=== PATIENT | male | born 1950 | race Caucasian/White ===

== ENCOUNTER 2016-09-02 10:06 | Inpatient (IN) | payer OTHER ==
[~2016-09-02] VITALS: Ht 170.2 cm; Wt 75.1 kg
[~2016-09-02 10:06] MED LIST: AMLO5TAB4 PO; ASP81 PO; ATOR20TA38 PO; CARV12.598 PO; CLOP75TA27 PO; GEMF600T PO; LANT3I SC; LISI-525 PO; LOV40I SC; NOVO3I SC; OXY5 PO; SENN-53 PO; UDMOM PO
--- NOTE | 2016-09-02 10:35 | RADRPT ---
PROCEDURE: XR Chest. CLINICAL INDICATION: Stroke TECHNIQUE: Chest AP portable COMPARISON: 08/24/2016 FINDINGS: The mediastinal structures are unremarkable. There is calcification of the thoracic aorta (consiste nt with atherosclerosis). The heart is normal in size and configuration. The pulmonary vascularity is normal. There are low lung volumes. No consolidation is identified. The pleural spaces are un remarkable. There are senescent changes of the axial skeleton. IMPRESSION: Calcification of the thoracic aorta (consistent with atherosclerosis). Low lung volumes No evidence for active cardiopulmonary disease. RPTAT: HGDB .Jorge Hernandez MD, Date Time Electronically viewed and signed by .Jorge Hernandez MD, on 09/02/2016 10:35 .B/
[2016-09-02 10:52] LABS: BASOPHILS % 0.3 % (0.0-2.0); EOSINOPHILS # 0.1 10^3/ul (0.0-0.5); EOSINOPHILS % 0.8 % (0.0-7.0); HEMATOCRIT 42.3 % (42.0-52.0); HEMOGLOBIN 14.3 g/dl (14.0-18.0); LYMPHOCYTES # 1.6 10^3/ul (0.8-2.9); LYMPHOCYTES % 16.5 % (15.0-51.0); MEAN CORPUSCULAR HEMOGLOBIN 27.9 pg (29.0-33.0); MEAN CORPUSCULAR HGB CONC 33.7 g/dl (32.0-37.0); MEAN CORPUSCULAR VOLUME 82.9 fl (82.0-101.0); MONOCYTE # 0.8 10^3/ul (0.3-0.9); MONOCYTES % 7.5 % (0.0-11.0); NEUTROPHIL # 7.5 10^3/ul (1.6-7.5); NEUTROPHILS % 74.9 % (39.0-77.0); PLATELET COUNT 247 10^3/UL (140-440)
[2016-09-02 10:54] LABS: CHLORIDE 97 mmol/L (97-110); INR 1.01; PROTIME 13.3 Sec (12.2-14.2); SODIUM 139 mmol/L (135-144)
[2016-09-02 10:55] LABS: PARTIAL THROMBOPLASTIN TIME 28.1 Sec (25.0-35.0); POTASSIUM 3.7 mmol/L (3.5-5.1)
[2016-09-02 10:56] LABS: CONDITION 1
[2016-09-02 10:57] LABS: ANION GAP 16 (8-16); CARBON DIOXIDE 30 mmol/L (21-31); CREATININE 0.75 mg/dl (0.61-1.24)
[2016-09-02 10:58] LABS: BLOOD UREA NITROGEN 15 mg/dl (7-20); CALCIUM 9.6 mg/dl (8.4-10.2); GLUCOSE 352 mg/dl (70-220)
[2016-09-02 11:45] LABS: TROPONIN-I < 0.012 ng/ml (0.00-0.12)
--- NOTE | 2016-09-02 12:11 | RADRPT ---
PROCEDURE: Noncontrast CT Head. CLINICAL INDICATION: Stroke. Left arm weakness. TECHNIQUE: Noncontrast CT of the head was obtained. The administered radiation dose was CTDI vol = 43.27, 43.27, 45.01 mGy, DLP = 180.06, 360.11, 90.03 mGy-cm. COMPARISON: Noncontrast CT of the head from August 24, 2016. FINDINGS: There is minimal generalized cerebral volume loss. There is new 1.5 cm focal area of hypoattenuatio n within the right prescott radiata suggestive of acute / recent infarction. There is also an interval age indeterminate left caudate head lacunar infarction. There is mild to moderate periventricular hypoattenuation suggesting chronic microvascular ischemic changes. There is a chronic left basal ganglia lacunar infarction as well small chronic right basal ganglia lacunar infarction. There is a chronic left inferior cerebellar infarction. There is also a small chronic right inferior cerebellar infarction. There are extensive vascular calcifications within the intracranial carotid arteries. There is no acute intracranial hemorrhage or extra-axial fluid collection. There is no mass effect. No midline shift is identified. The orbits are within normal limits. The paranasal sinuses are well aerated. No destructive osseous lesion is identified. IMPRESSION: 1. New focal area of hypoattenuation within the right prescott radiata suspicious for acute / recent i nfarction. Noncontrast MRI of the brain may be performed as clinically warranted. 2. Interval age indeterminate left caudate head lacunar infarction. 3. No acute intracranial hemorrhage or extra-axial fluid collection. 4. Chronic left greater than right inferior cerebellar infarction. 5. Chronic left greater than right basal ganglia lacunar infarctions. 6. Mild to moderate chronic microvascular ischemic changes. 7. Minimal generalized cerebral volume loss. Further findings as detailed above. These findings were discussed with Dr. Shar Koehler at 12:08 p.m. on September 02, 2016. RPTAT: PP .Wellington Bedoya MD, MD Date Time Electronically viewed and signed by .Wellington Bedoya MD, on 09/02/2016 12:11 .F/
[2016-09-02] MEDS ORDERED: ASPIRIN 325 MG TAB PO ONE (12:30)
[2016-09-02] MEDS ORDERED: ACETAMINOPHEN 325 MG TAB PO PRN ×2 (13:00→17:00)
[2016-09-02] MEDS ORDERED: ONDANSETRON 4 MG INJ IV PRN ×3 (13:00→17:00)
[2016-09-02] MEDS ORDERED: ASPIRIN 300 MG SUPP PR ONE (13:00)
[2016-09-02] MEDS ORDERED: LABETALOL HCL 20MG INJ IV ONE (14:00)
--- NOTE | 2016-09-02 14:06 | ERA ---
ER Documentation Chief Complaint Date/Time DATE: 09/02/16 TIME: 14:04 Chief Complaint left sided weakness, facial droop since last night HPI Patient is a 66-year-old male with hypertension and diabetes who presents with weakness. The patient was brought in by ambulance. His friends found him on the floor with a facial droop and left-sided weakness of the upper and lower extremity. It started last night. His sugar was over 200 per paramedics. He does not have an exact time when the symptoms started. ROS All systems reviewed and are negative except as per history of present illness. Medications Home Meds Active Scripts Sennosides* (Senna Lax*) 8.6 Mg Tablet, 1 TAB PO BID for CONSTIPATION, #30 TAB Prov:YOHANA CHINCHILLA 11/27/15 Oxycodone Hcl* (IR) (Roxicodone*) 5 Mg Tab, 5 MG PO Q4H Y for PAIN LEVEL 6-10, # 60 TAB Prov:YOHANA CHINCHILLA 11/27/15 Magnesium Hydroxide* (Duran' MOM*) 30 Ml Susp, 30 ML PO DAILY Y for CONSTIPATION, #30 Prov:YOHANA CHINCHILLA 11/27/15 Lisinopril* (Zestril*) 20 Mg Tab, 40 MG PO DAILY, #60 TAB Prov:YOHANA CHINCHILLA 11/27/15 Insulin Glargine* (Lantus*) 100 Unit/Ml Soln, 45 UNIT SC HS, #10 ML Prov:AMOR11/27/15 Insulin Aspart* (Novolog Insulin Pen*) 100 Unit/Ml Soln, 16 UNIT SC WITH MEALS, #10 ML Prov:YOHANA CHINCHILLA 11/27/15 Gemfibrozil* (Lopid*) 600 Mg Tab, 600 MG PO BID, #60 TAB Prov:YOHANA CHINCHILLA 11/27/15 Enoxaparin Sodium* (Enoxaparin Sodium*) 40 Mg/0.4 Ml Soln, 40 MG SC DAILY for 60 Days Prov:YOHANA CHINCHILLA 11/27/15 Clopidogrel Bisulfate (Clopidogrel) 75 Mg Tab, 75 MG PO DAILY, #60 TAB Prov:YOHANA CHINCHILLA 11/27/15 Carvedilol* (Coreg*) 12.5 Mg Tab, 12.5 MG PO BID for 60 Days, TAB Prov:YOHANA CHINCHILLA 11/27/15 Atorvastatin Calcium* (Atorvastatin Calcium*) 20 Mg Tab, 20 MG PO HS, #60 TAB Prov:YOHANA CHINCHILLA 11/27/15 Amlodipine Besylate* (Norvasc*) 5 Mg Tab, 5 MG PO BID, #60 TAB Prov:YOHANA CHINCHILLA 11/27/15 Aspirin (Aspirin) 81 Mg Chew, 81 MG PO DAILY, #60 TAB Prov:YOHANA CHINCHILLA 11/27/15 Allergies Allergies: Coded Allergies: No Known Allergy (Unverified , 09/02/16) PMhx/Soc Medical and Surgical Hx: pt denies Surgical Hx History of Surgery: No Anesthesia Reaction: No Hx Neurological Disorder: No Hx Respiratory Disorders: No Hx Cardiac Disorders: Yes (HTN) Hx Psychiatric Problems: No Hx Miscellaneous Medical Probl: Yes (dm) Hx Alcohol Use: No Hx Substance Use: Yes (marijuana in the past) Hx Tobacco Use: No Smoking Status: Never smoker FmHx Family History: diabetes Physical Exam Vitals Vital Signs Date Time Temp Pulse Resp B/P Pulse Ox O2 Delivery O2 Flow Rate FiO2 09/02/16 10:31 Nasal Cannula 2 09/02/16 10:18 97.8 90 18 172/90 99 Physical Exam Const: Mild distress Head: Atraumatic Eyes: Normal Conjunctiva ENT: Left-sided facial droop Neck: Full range of motion..~ No meningismus. Resp: Clear to auscultation bilaterally Cardio: Regular rate and rhythm, no murmurs Abd: Soft, non tender, non distended. Normal bowel sounds Skin: No petechiae or rashes Back: No midline or flank tenderness Ext: No cyanosis, or edema Neur: Awake and alert, left-sided facial droop which spares the eyebrows, profound weakness of the left upper extremity and left lower extremity as he is unable to move Psych: Normal Mood and Affect Result Diagram: 09/02/16 1015 09/02/16 1015 Results 24 hrs Laboratory Tests Test 09/02/16 10:15 09/02/16 12:14 Activated Partial Thromboplast Time 28.1Sec Anion Gap 16 Basophils # 0.010^3/ul Basophils % 0.3% Blood Morphology Comment Blood Urea Nitrogen 15mg/dl Calcium Level 9.6mg/dl Carbon Dioxide Level 30mmol/L Chloride Level 97mmol/L Creatinine 0.75mg/dl Eosinophils # 0.110^3/ul Eosinophils % 0.8% Glucose Level 352mg/dl Hematocrit 42.3% Hemoglobin 14.3g/dl INR International Normalized Ratio 1.01 Lymphocytes # 1.610^3/ul Lymphocytes % 16.5% Mean Corpuscular Hemoglobin 27.9pg Mean Corpuscular Hemoglobin Concent 33.7g/dl Mean Corpuscular Volume 82.9fl Mean Platelet Volume 11.0fl Monocytes # 0.810^3/ul Monocytes % 7.5% Neutrophils # 7.510^3/ul Neutrophils % 74.9% Nucleated Red Blood Cells # 0.010^3/ul Nucleated Red Blood Cells % 0.0/100WBC Platelet Count 93623^3/UL Potassium Level 3.7mmol/L Prothrombin Time 13.3Sec Prothrombin Time Ratio 1.0 Red Blood Count 5.1010^6/ul Red Cell Distribution Width 13.0% Sodium Level 139mmol/L Troponin I < 0.012ng/ml White Blood Count 10.010^3/ul Bedside Glucose 316mg/dL Current Medications Medications (Trade) Dose Ordered Sig/Milton Route PRN Reason Start Time Stop Time Status Last Admin Dose Admin Aspirin (Aspirin) 325 mg ONCE ONCE PO 09/02/16 12:30 09/02/16 12:34 DC Aspirin (Aspirin) 300 mg ONCE ONCE HI 09/02/16 13:00 09/02/16 13:01 DC 09/02/16 13:49 Ondansetron HCl (Zofran Inj) 4 mg ER BRIDGE PRN IV NAUSEA AND/OR VOMITING 09/02/16 13:00 09/03/16 12:59 Acetaminophen (Tylenol Tab) 650 mg ER BRIDGE PRN PO MILD PAIN/FEVER 09/02/16 13:00 09/03/16 12:59 Labetalol HCl (Labetalol) 20 mg ONCE ONCE IV 09/02/16 14:00 09/02/16 14:01 DC 09/02/16 14:00 Procedures/MDM EKG read by me: Rate/Rhythm: Regular rate and rhythm at a normal rate Intervals: Normal Impression: No evidence of ischemia or arrhythmia CT scan of the brain shows stroke per radiology. Patient is a 66-year-old male with hypertension and diabetes who presents with acute stroke. He is outside the window for TPA. However he has a dense stroke with left-sided facial droop, left upper extremity weakness, and left lower extremity weakness. He was given aspirin by rectum as he failed a swallow evaluation. The patient had an NIH stroke scale performed by nursing. The patient will be admitted to a telemetry bed. He will need further stroke care. He had a blood pressure of over 200 and was given labetalol 20 mg IV to bring the pressure under 200. Critical Care: Time: 35 minutes excluding all billable procedures. Treatments/Evaluations: Close monitoring and treatment of unstable vital signs, cardiorespiratory, and neurologic status, while maintaining tight balance of fluid, respiratory, and cardiac interventions. Departure Diagnosis: Primary Impression: Hypertension Qualified Code: I10 - Essential hypertension Additional Impression: Stroke Qualified Code: I63.9 - Cerebrovascular accident (CVA), unspecified mechanism Condition: Serious TAVO TUCKER MD Sep 02, 2016 14:06
[2016-09-02 15:12] LABS: ADD UMIC YES; URINE BILIRUBIN (Dip) NEGATIVE (NEGATIVE); URINE BLOOD (Dip) TRACE (NEGATIVE); URINE GLUCOSE (Dip) >=1000 % (NEGATIVE); URINE KETONES (Dip) 3+ (NEGATIVE); URINE LEUKOCYTE ESTERASE (Dip) NEGATIVE (NEGATIVE); URINE NITRITE (Dip) NEGATIVE (NEGATIVE); URINE TOTAL PROTEIN (Dip) 1+ (NEGATIVE); URINE UROBILINOGEN (Dip) 0.2 E.U./dL (0.1-1.0)
[2016-09-02 15:21] LABS: URINE COLOR YELLOW (YELLOW)
[2016-09-02 15:28] LABS: BACTERIA,URINE MODERATE
[2016-09-02 15:29] LABS: TRANSITIONAL EPI CELLS,URINE FEW; URINE RBCS 0-2 /HPF (0)
[2016-09-02 15:46] LABS: BARBITURATES NEGATIVE (NEGATIVE); BENZODIAZEPINES NEGATIVE (NEGATIVE); CANNABINOIDS NEGATIVE (NEGATIVE); COCAINE NEGATIVE (NEGATIVE); OPIATES NEGATIVE (NEGATIVE)
[2016-09-02] MEDS ORDERED: DOCUSATE SODIUM 100 MG CAP PO PRN (17:00)
[2016-09-02] MEDS ORDERED: NA PHOSPHATE/BIPHOS 133 ML ENEMA PR PRN (17:00)
[2016-09-02] MEDS ORDERED: INSULIN ASPART [NOVOLOG] 3 ML PEN SC SCH (17:00)
[2016-09-02] MEDS ORDERED: NACL 0.9% 3 ML SYG IV SCH (17:00)
[2016-09-02] MEDS ORDERED: ALBUTEROL/IPRATROPIUM (NEB) 3 ML AMP HHN PRN (17:00)
[2016-09-02] MEDS ORDERED: NITROGLYCERIN (SL) 0.4 MG TAB SL PRN (17:00)
[2016-09-02] MEDS ORDERED: HYDROCODONE/APAP (5/325) TAB PO PRN (17:00)
[2016-09-02] MEDS ORDERED: MAGNESIUM HYDROXIDE 30ML CUP PO PRN ×2 (17:00)
[2016-09-02] MEDS ORDERED: GLUCOSE GEL 15 GRAM TUBE BUCCAL PRN (18:00)
[2016-09-02] MEDS ORDERED: DEXTROSE 50% 50 ML SYRINGE IV PRN ×2 (18:00)
[2016-09-02] MEDS ORDERED: GLUCAGON 1 MG INJ IM PRN (18:00)
[2016-09-02] MEDS ORDERED: GLUCOSE GEL 15 GRAM TUBE PO PRN ×2 (18:00)
[2016-09-02] MEDS: SOD CHLORIDE 0.45% 1,000 ML IV SCH ×2 (19:38→19:47)
--- NOTE | 2016-09-02 19:54 | HP ---
DATE OF ADMISSION: 09/02/2016 CHIEF COMPLAINT: Left-sided weakness. HISTORY OF PRESENT ILLNESS: A 66-year-old male, past medical history of diabetes type 2, hypertensi on, high cholesterol, peripheral vascular disease, insomnia who was recently at our hospital here fr 08/24 to 08/25/2016. He presents with left-sided weakness symptoms today. However, symptoms beg an last night. He also had some facial droop, and family became concerned, and they brought him in by ambulance. Apparently his friends had found him on the floor with the facial droop and left-side d weakness symptoms of both of the upper and lower extremities. When the paramedics arrived, his cavanaugh gars were found to be elevated as well. The patient is a poor historian, so full review of systems could not be obtained, but when he came into the ER today, he had a head CT performed, and it showed new focal area of hypoattenuation in the right prescott radiata suspicious of acute or recent infarct . PAST MEDICAL HISTORY: As stated above. ALLERGIES: NO KNOWN DRUG ALLERGIES. HOME MEDICINES: 1. Plavix 75 mg daily. 2. Lovenox 40 mg subQ daily. 3. Norvasc 5 mg b.i.d. 4. Atorvastatin 20 mg at bedtime. 5. Coreg 12.5 mg b.i.d. 6. Lopid 600 mg b.i.d. 7. Zestril 40 mg daily. 8. Aspirin 81 mg daily. 9. Oxycodone IR 5 mg q.4 p.r.n. 10. Milk of magnesia 30 mL daily p.r.n. 11. Senna 1 tablet b.i.d. 12. Aspart insulin 16 units with meals. 13. Lantus 45 units at bedtime. PAST SURGICAL HISTORY: Left lower extremity angioplasty in the past. FAMILY HISTORY: Noncontributory. 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 Former alcohol abuser, does not drink now. Denies cigarette smoking today. PHYSICAL EXAMINATION: VITAL SIGNS: T-max 97.8, pulse of 78 to 90, respirations 18, blood pressure is 209 to 158 systolic over 128 to 82 diastolic, saturating at 99% on room air. GENERAL: The patient is lying in bed asking for water, family members at the bedside, in mild distr ess. HEENT: Pupils equal, round, react to light. Extraocular muscles intact but there is some left-side d facial droop noted. NECK: Supple. No thyromegaly. LUNGS: Clear to auscultation bilaterally. CARDIOVASCULAR: S1 and S2 heard. No rubs, gallops. ABDOMEN: Soft, nontender, nondistended. Normal bowel sounds. No rebound or guarding. MUSCULOSKELETAL: No lower extremity edema bilaterally. NEUROLOGIC: He has got decreased weakness in the left upper and left lower extremities. Normal str ength and sensation, right upper and right lower extremities. Gait was not assessed. PSYCHIATRIC: Normal mood and affect. LABORATORIES: CBC is completely normal. Basic metabolic panel is normal except his sugar was 352. A1c is 11.7. IMAGING: Again, the head CT results as mentioned above. The chest x-ray shows calcification of the thoracic aorta consistent with atherosclerosis, low lung volumes but no active cardiopulmonary dise ase. ASSESSMENT AND PLAN: A 66-year-old male coming in with left-sided weakness and facial droop with si gns of positive stroke on the head CT. 1. Left-sided weakness, looks like signs of positive stroke. Will admit him to telemetry floor, t an MRI of the brain, get a 2D echocardiogram, carotid Dopplers as well, put him on high-dose aspir in, do neuro checks every 4 hours as well. Put him on high cholesterol medicine, get a neurology co nsult as well. Get PT, OT and speech therapy consults as well. 2. Diabetes. Again, put him on sliding scale insulin and his home insulins. 3. Hypertension. Again, allow for permissive hypertension given the fact that he is having stroke, just hydralazine for systolic greater than 220 for now until Neurology sees him. 4. Gastrointestinal prophylaxis. H2 mariano. 5. Deep venous thrombosis prophylaxis. Lovenox. 6. History of peripheral vascular disease. Continue aspirin, Plavix for now. Dictated By: ALBINA IRVIN Conf#: [id number] DID#: [id number]
[2016-09-02] MEDS: ATORVASTATIN 80 MG TAB PO SCH (21:00)
[2016-09-02] MEDS: FAMOTIDINE 20 MG INJ IV SCH (21:00)
[2016-09-02] MEDS: GEMFIBROZIL 600 MG TAB PO SCH ×2 (21:00→23:58)
[2016-09-02] MEDS ORDERED: HEPARIN 5,000 UNIT/0.5 ML SYG SC SCH (21:00)
--- NOTE | 2016-09-02 22:08 | RADRPT ---
PROCEDURE: MRI Brain without contrast. CLINICAL INDICATION: Dizziness and prior stroke TECHNIQUE: An MRI of the brain was performed on a high resolution hi-definition 3.0 [employer] MRI scan ner utilizing the following sequences: Sagittal and axial T1 weighted, axial T2 weighted, axial T2 F LAIR, axial diffusion weighted with ADC mapping, and coronal GRE. COMPARISON: CT brain 09/02/2016 and 08/24/2016 FINDINGS: The scalp and calvarium are the orbits are normal bilaterally. The bilateral paranasal sinuses demo nstrate chronic mucosal thickening in the bilateral ethmoid and right greater than left maxillary si nuses. The bilateral mastoid air cells and middle ear cavities are clear. The ventricles and sulci are age appropriate. Moderate diffuse volume loss is present. On diffusi on weighted sequences, restricted diffusion is present in the right prescott radiography extending int o the right posterior limb of the internal capsule and the left head of the caudate extending superi paras into the left periventricular white matter. These are compatible with acute non hemorrhagic in farcts. FLAIR and T2 hyperintensity are again noted and a wedge-shaped configuration in the left po sterior inferior cerebellum compatible with a chronic infarct. In addition punctate foci of FLAIR a nd T2 hyperintensity are present in the right inferior cerebellum, the bilateral basal ganglia, the bilateral periventricular white matter, the left greater than right putamen, and the bilateral centr um semiovale. These are compatible with chronic ischemic disease and chronic lacunar infarcts. No ev idence of intracranial hemorrhage, mass effect or midline shift is present. No hypointense signal abnormalities are seen on the GRE images to suggest the presence of blood degradation products. Normal flow voids are visible in the proximal intracranial arteries and dural sinuses, indicating pa tency. IMPRESSION: 1. Acute non hemorrhagic left basal ganglia and right neural white matter infarcts as noted above. 2. Chronic left inferior cerebellar hemispheric infarct , small vessel right inferior cerebellar in farct, chronic left greater than right putaminal infarcts 3. Moderate chronic microvascular ischemic disease and moderate diffuse volume loss. 4. Chronic paranasal sinus disease as indicated above. A call report was made to Dr. Sandoval at 09/02/2016 10:00:20 PM following the completion of the examina tion by the undersigned. RPTAT: HDC .Xi Meyer MD, MD Date Time Electronically viewed and signed by .Xi Meyer MD, MD on 09/02/2016 22:08 .C/
[2016-09-02 22:30] VITALS: BP 138/76; PULSE 78; RESP 20
[2016-09-02 22:46] VITALS: Ht 170.2 cm; Wt 75.1 kg
[2016-09-02 23:09] VITALS: PULSE 84
[2016-09-03] VITALS (14 sets, daily range): BP systolic 142–189; BP diastolic 61–117; PULSE 72–122; RESP 18–21
[2016-09-03] MEDS: INSULIN ASPART [NOVOLOG] 3 ML PEN SC SCH ×11 (01:00→21:00)
[2016-09-03] MEDS: LORAZEPAM 2 MG INJ IV PRN ×4 (01:53→23:25)
[2016-09-03] MEDS: INSULIN GLARGINE [LANtus] 3 ML PEN SC SCH ×2 (01:59→22:14)
[2016-09-03] MEDS: morphine 2 MG INJ IV PRN (02:39)
[2016-09-03] MEDS ORDERED: HALOPERIDOL 5 MG INJ IM SCH (04:00)
[2016-09-03] MEDS ORDERED: HALOPERIDOL 5 MG INJ IM ONE (04:00)
[2016-09-03] MEDS ORDERED: LORAZEPAM 2 MG INJ IV ONE (05:00)
--- NOTE | 2016-09-03 06:02 | RADRPT ---
PROCEDURE: US Carotids. CLINICAL INDICATION: Dizziness TECHNIQUE: Multiple sonographic of the carotid arteries were obtained utilizing fritz scale imaging . Color and Doppler imaging was performed. The images were reviewed on a PACS workstation. COMPARISON: No prior studies are available for comparison. FINDINGS: RIGHT: CCA 101.6 cm/sec Prox ICA 62.3 cm/sec Mid ICA 51.2 cm/sec Dist ICA 49.5 cm/sec ECA 70.2 cm/sec ICA/CCA 0.5 LEFT: CCA 83.6 cm/sec Prox ICA 96.3 cm/sec Mid ICA 88.1 cm/sec Dist ICA 65.6 cm/sec ECA 70.7 cm/sec ICA/CCA 0 point a Antegrade flow is seen within the vertebral arteries bilaterally. Soft and calcific plaque is seen w ithin the carotid system bilaterally. However, no evidence for hemodynamically significant stenosis or occlusion is identified. IMPRESSION: 1. Soft and calcific plaque without evidence for hemodynamically significant stenosis or occlusion by NASCET criteria. There is plaque burden is at the left carotid bulb. 2. Antegrade flow seen within the vertebral arteries bilaterally. RPTAT: HH .Ruth Kaur MD, Date Time Electronically viewed and signed by .Ruth Kaur MD, on 09/03/2016 06:02 .G/
[2016-09-03 08:35] LABS: CHOL/HDL RATIO 6.8 RATIO
[2016-09-03] MEDS ORDERED: ENOXAPARIN 40 MG/0.4 ML SYG SC SCH (09:00)
[2016-09-03] MEDS: ASPIRIN (EC) 325 MG TAB PO SCH ×2 (09:00→15:16)
[2016-09-03 09:03] LABS: THYROID STIMULATING HORMONE 2.76 MIU/L (0.465-4.680)
[2016-09-03 09:25] LABS: BASOPHILS % 0.3 % (0.0-2.0); EOSINOPHILS % 0.3 % (0.0-7.0); HEMATOCRIT 40.8 % (42.0-52.0); HEMOGLOBIN 13.6 g/dl (14.0-18.0); LYMPHOCYTES # 1.3 10^3/ul (0.8-2.9); LYMPHOCYTES % 12.8 % (15.0-51.0); MEAN CORPUSCULAR HEMOGLOBIN 27.5 pg (29.0-33.0); MEAN CORPUSCULAR HGB CONC 33.4 g/dl (32.0-37.0); MEAN CORPUSCULAR VOLUME 82.3 fl (82.0-101.0); MONOCYTE # 0.5 10^3/ul (0.3-0.9); MONOCYTES % 5.4 % (0.0-11.0); NEUTROPHIL # 8.2 10^3/ul (1.6-7.5); NEUTROPHILS % 81.2 % (39.0-77.0); PLATELET COUNT 248 10^3/UL (140-440); POTASSIUM 3.9 mmol/L (3.5-5.1); RED BLOOD COUNT 4.96 10^6/ul (4.70-6.10); RED CELL DISTRIBUTION WIDTH 12.6 % (11.5-14.5); UNCORRECTED WBC 10.1 10^3/ul (4.8-10.8); WHITE BLOOD COUNT 10.1 10^3/ul (4.8-10.8)
[2016-09-03 09:28] LABS: CREATININE 0.71 mg/dl (0.61-1.24); PHOSPHORUS 4.2 mg/dl (2.5-4.9)
[2016-09-03 09:29] LABS: CALCIUM 9.1 mg/dl (8.4-10.2); CONDITION 1; MAGNESIUM 1.9 mg/dl (1.7-2.5)
--- NOTE | 2016-09-03 10:56 | PN ---
Date/Time of Note Date/Time of Note DATE: 09/03/16 TIME: 10:53 Assessment/Plan VTE Prophylaxis VTE Prophylaxis Intervention: LMWH Lines/Catheters IV Catheter Type (from [facility]): Peripheral IV Urinary Cath still in place: No Assessment/Plan Chief Complaint/Hosp Course ASSESSMENT AND PLAN: 66-year-old male coming in with left-sided weakness and facial droop with signs of positive stroke on the head CT. 1. CVA w/ left weakness - MRI of the brain shows: Acute non hemorrhagic left basal ganglia and right neural white matter infarcts - f/u 2D echocardiogram, continue high-dose aspirin - neuro checks every 4 hours as well, high cholesterol medicine - f/u neurology consult rec's as well (pending). - f/u PT, OT and speech therapy consults as well. 2. Diabetes. Again, put him on sliding scale insulin and his home insulins. 3. Hypertension. Again, allow for permissive hypertension given the fact that he is having stroke, just hydralazine for systolic greater than 220 for now until Neurology sees him. 4. Gastrointestinal prophylaxis. H2 mariano. 5. Deep venous thrombosis prophylaxis. Lovenox. 6. History of peripheral vascular disease. Continue aspirin, Plavix for now. Problems: Subjective 24 Hr Interval Summary Free Text/Dictation pt more agitated overnight, placed on restraints. Awaiting Neuro consult. Exam/Review of Systems Vital Signs Vitals Vital Signs Date Time Temp Pulse Resp B/P Pulse Ox O2 Delivery O2 Flow Rate FiO2 09/03/16 10:42 98.0 94 18 152/61 94 09/03/16 06:00 Nasal Cannula 09/03/16 02:41 2.0 Intake and Output 09/02/16 09/02/16 09/03/16 14:59 22:59 06:59 Intake Total 50 ml Balance 50 ml Exam GENERAL: The patient is lying in bed asking for water, family members at the bedside, in mild distress. HEENT: Pupils equal, round, react to light. Extraocular muscles intact but there is some left-sided facial droop noted. NECK: Supple. No thyromegaly. LUNGS: Clear to auscultation bilaterally. CARDIOVASCULAR: S1 and S2 heard. No rubs, gallops. ABDOMEN: Soft, nontender, nondistended. Normal bowel sounds. No rebound or guarding. MUSCULOSKELETAL: No lower extremity edema bilaterally. NEUROLOGIC: decreased strength in the left upper and left lower extremities. Normal strength and sensation, right upper and right lower extremities. Gait was not assessed. PSYCHIATRIC: Normal mood and affect. Results Result Diagram: 09/03/16 0727 09/03/16 0727 Results 24 hrs Laboratory Tests Test 09/02/16 12:14 09/02/16 14:20 09/02/16 18:55 09/02/16 23:10 Bedside Glucose 316 H 262 H Urine Amphetamines Screen NEGATIVE Urine Bacteria MODERATE Urine Barbiturates NEGATIVE Urine Benzodiazepines Screen NEGATIVE Urine Bilirubin NEGATIVE Urine Cannabinoids NEGATIVE Urine Clarity SLIGHTLY CLOUDY Urine Cocaine Screen NEGATIVE Urine Color YELLOW Urine Glucose >=1000 Urine Hemoglobin TRACE Urine Ketones 3+ H Urine Leukocyte Esterase NEGATIVE Urine Microscopic RBC 0-2 Urine Microscopic WBC 10-25 Urine Nitrite NEGATIVE Urine Opiates Screen NEGATIVE Urine Specific [place] >=1.030 H Urine Total Protein 1+ H Urine Transitional Epithelial Cells FEW Urine Urobilinogen 0.2 E.U./dL Urine Yeast MODERATE Urine pH 5.5 Free Thyroxine 1.32 Test 09/03/16 06:18 09/03/16 07:27 09/03/16 08:08 Bedside Glucose 320 H 218 Anion Gap 20 H Basophils # 0.0 Basophils % 0.3 Blood Morphology Comment Blood Urea Nitrogen 18 Calcium Level 9.1 Carbon Dioxide Level 21 Chloride Level 100 Cholesterol Level 232 H Cholesterol/HDL Ratio 6.8 Creatinine 0.71 Eosinophils # 0.0 Eosinophils % 0.3 Glucose Level 272 H HDL Cholesterol 34 Hematocrit 40.8 L Hemoglobin 13.6 L Hemoglobin A1c 11.9 H LDL Cholesterol, Calculated 156 Lymphocytes # 1.3 Lymphocytes % 12.8 L Magnesium Level 1.9 Mean Corpuscular Hemoglobin 27.5 L Mean Corpuscular Hemoglobin Concent 33.4 Mean Corpuscular Volume 82.3 Mean Platelet Volume 11.0 H Monocytes # 0.5 Monocytes % 5.4 Neutrophils # 8.2 H Neutrophils % 81.2 H Nucleated Red Blood Cells # 0.0 Nucleated Red Blood Cells % 0.0 Phosphorus Level 4.2 Platelet Count 248 Potassium Level 3.9 Red Blood Count 4.96 Red Cell Distribution Width 12.6 Sodium Level 137 Thyroid Stimulating Hormone (TSH) 2.760 Triglycerides Level 208 H White Blood Count 10.1 Medications Medications Current Medications Acetaminophen (Tylenol Tab) 650 mg Q6H PRN PO PAIN LEVEL 1-3 OR FEVER; Start 12/19/16 at 17:00 Acetaminophen/ Hydrocodone Bitart ([place] (5/325)) 1 tab Q6H PRN PO MODERATE PAIN LEVEL 4-6; Start 09/02/16 at 17:00 Morphine Sulfate (morphine) 2 mg Q4H PRN IV SEVERE PAIN LEVEL 7-10 Last administered on 09/03/16at 02:39; Admin Dose 2 MG; Start 09/02/16 at 17:00 Docusate Sodium (Colace) 100 mg Q12H PRN PO CONSTIPATION; Start 09/02/16 at 17 :00 Sodium Biphosphate/ Sodium Phosphate (Fleet Enema) 133 ml DAILY PRN [place] CONSTIPATION; Start 09/02/16 at 17:00 Famotidine (Pepcid Iv) 20 mg Q12 IV Last administered on 09/02/16at 21:00; Admin Dose 20 MG; Start 09/02/16 at 21:00 Heparin Sodium (Porcine) (Heparin (5000 Units/0.5 ml)) 5,000 unit Q12 SC Last administered on 09/02/16at 23:59; Admin Dose 5,000 UNIT; Start 09/02/16 at 21: 00 Ondansetron HCl 4 mg 4 mg Q6H PRN IV NAUSEA AND/OR VOMITING; Start 09/02/16 at 17:00 Sodium Chloride (1/2 NS) 1,000 ml @ 75 mls/hr [id number] IV Last administered on 09/02/16at 19:47; Admin Dose 75 MLS/HR; Start 09/02/16 at 16:57 Lorazepam (Ativan) 0.5 mg Q6H PRN IV ANXIETY Last administered on 09/03/16at 09 :37; Admin Dose 0.5 MG; Start 09/02/16 at 17:00 Hydralazine HCl (Apresoline) 10 mg Q6H PRN IV ELEVATED BLOOD PRESSURE; Start 09/02/16 at 17:00 Nitroglycerin (Nitroglycerin (Sl Tab) 0.4 Mg) 1 tab Q5M PRN SL ANGINA; Start 09/02/16 at 17:00 Aspirin (Ecotrin) 325 mg DAILY PO ; Start 09/03/16 at 09:00 Clopidogrel Bisulfate (plaVIX) 75 mg DAILY PO ; Start 09/03/16 at 09:00 Enoxaparin Sodium (Lovenox) 40 mg DAILY SC ; Start 09/03/16 at 09:00 Gemfibrozil (Lopid) 600 mg BID PO Last administered on 09/02/16at 23:58; Admin Dose 600 MG; Start 09/02/16 at 21:00 Insulin Glargine (Lantus) 45 unit HS SC Last administered on 09/03/16at 01:59; Admin Dose 45 UNIT; Start 09/02/16 at 21:00 Magnesium Hydroxide (Milk Of Mag) 30 ml DAILY PRN PO CONSTIPATION; Start 09/02 at 17:00 Atorvastatin Calcium (Lipitor) 80 mg HS PO ; Start 09/02/16 at 21:00 Miscellaneous Information 1 ea NOTE XX ; Start 09/02/16 at 18:00 Glucose (Glutose) 15 gm Q15M PRN PO DECREASED GLUCOSE; Start 09/02/16 at 18:00 Glucose (Glutose) 22.5 gm Q15M PRN PO DECREASED GLUCOSE; Start 09/02/16 at 18: 00 Dextrose (D50w Syringe) 25 ml Q15M PRN IV DECREASED GLUCOSE; Start 09/02/16 at 18:00 Dextrose (D50w Syringe) 50 ml Q15M PRN IV DECREASED GLUCOSE; Start 09/02/16 at 18:00 Glucagon (Glucagen) 1 mg Q15M PRN IM DECREASED GLUCOSE; Start 09/02/16 at 18: 00 Glucose (Glutose) 15 gm Q15M PRN BUCCAL DECREASED GLUCOSE; Start 09/02/16 at 18:00 Insulin Aspart (Novolog Insulin Pen) NOVOLOG *MODERATE* ALGORI... Q4 SC Last administered on 09/03/16at 06:26; Admin Dose 10 UNIT; Start 09/02/16 at 21:00 Haloperidol (Haldol) 1 mg ONCE IM Last administered on 09/03/16at 04:15; Admin Dose 1 MG; Start 09/03/16 at 04:00; Stop 09/03/16 at 12:00 ALBINA HUERTA Sep 03, 2016 10:56
[2016-09-03] MEDS: FAMOTIDINE 20 MG INJ IV SCH ×2 (11:14→20:58)
[2016-09-03] MEDS: SOD CHLORIDE 0.45% 1,000 ML IV SCH (13:02)
[2016-09-03] MEDS: CLOPIDOGREL 75 MG TAB PO SCH (15:16)
--- NOTE | 2016-09-03 19:01 | CONS ---
DATE OF ADMISSION: 09/02/2016 DATE OF CONSULTATION: 09/03/2016 TYPE OF CONSULTATION: Neurology. Thank you, Dr. Babcock, for your kind referral for evaluation of stroke. HISTORY OF PRESENT ILLNESS: The patient has a past medical history of diabetes, hypertension, dysli pidemia, peripheral vascular disease who presented with left-sided weakness outside of a TPA window. Patient is somewhat restless and he received Ativan so now he is sleepy. History obtained predomi nantly from the chart. HOME MEDICATIONS: 1. Plavix. 2. Norvasc. 3. Atorvastatin. 4. Coreg. 5. Zestril. 6. Aspirin. 7. Insulin. ALLERGIES: NONE. SOCIAL HISTORY: Reported in the chart history of prior cocaine and alcohol use as well as marijuana use but patient denied present use to the primary MD. FAMILY HISTORY: Noncontributory. He was admitted a few days prior on the , ten days prior to the hospitalization with shortness o f breath and headaches. There is a note in the chart that patient is not compliant with medications . Currently, he is on aspirin 325 and Plavix as well, Lipitor 80, insulin and opiates. LABORATORY DATA: Shows essentially normal CBC yesterday on admission. With hydration, hemoglobin 1 3.6 and hematocrit 40.8 today. Chemistry shows BUN 18, creatinine 0.71. Hemoglobin A1c 12. Choles terol 232, LDL 156. Normal TSH. Normal PT, PTT. Urinalysis 10 to 25 WBCs, 1+ protein and elevated glucose and 3+ ketones. Tox screen negative. The patient had MRI of the brain which shows 2 areas of acute stroke 1 in the left basal ganglia and 1 in the right internal capsule as well as areas of chronic infarcts. Carotid ultrasound does not show any hemodynamically significant lesions. Chest x-ray: Atherosclerosis and calcification of the thoracic aorta, otherwise no abnormality. EKG normal sinus rhythm. PHYSICAL EXAMINATION: VITAL SIGNS: On examination, vitals 98.2 temperature, heart rate 122 that was when the patient was agitated, 18 respirations, 181/117 blood pressure. HEENT: Normocephalic, atraumatic head. NECK: No carotid bruits. No thyromegaly. LUNGS: Clear to auscultation bilaterally. CARDIAC: Normal cardiac rhythm and sounds. ABDOMEN: Soft. EXTREMITIES: No cyanosis, clubbing or edema. The patient has his right arm in soft restraints. NEUROLOGIC: He is lethargic, arousable by voice, follows simple commands, follows simple commands, goes back to sleep. Able to state his name, but not oriented to place or time currently. Present response to visual threat bilaterally. Pupils reactive from 3 to 2 mm bilaterally. Extraocular mov ements intact without nystagmus. Asymmetrical face with left facial central type droop. Corneal re flexes present bilaterally as well as gag. Motor strength examination showed left-sided plegia and flaccid tone. He states that he does feel pain applied to the left side but seemed to be not as not iceable and produces milder response than pain applied to the right side. Deep tendon reflexes 2+ u pper extremities and knees, 3+ ankle jerks upgoing toes on the left and equivocal on the right. Co ordination was not checked. IMPRESSION AND PLAN: Acute ischemic stroke with left-sided plegia. MRI of the brain shows 2 areas of stroke, possibly patient had another stroke on the left side, maybe recently as well, but I do no t see any symptoms of the left sided stroke. PAST MEDICAL HISTORY: 1. Significant for noncompliance. 2. Speech evaluation and physical therapy were not done because of the patient's lethargy after he received Ativan. Should be retried tomorrow. 3. Continue aspirin, Plavix and high dose Lipitor. Keep patient euglycemic. It is okay to allow e levated blood pressure up to 220/120 in the first 1-2 days after acute stroke, but then gradually ob tain control. Thank you very much for this interesting consultation. I agree with antipsychotics plus/minus benzo diazepines on a p.r.n. basis. Dictated By: JOSÉ MIGUEL HOOKS/CORONA Conf#: [id number] DID#: [id number]
[2016-09-03] MEDS: ATORVASTATIN 80 MG TAB PO SCH (21:00)
[2016-09-03] MEDS: GEMFIBROZIL 600 MG TAB PO SCH (21:00)
[2016-09-03] MEDS: hydrALAzine 20 MG INJ IV PRN (23:01)
[2016-09-04] VITALS (17 sets, daily range): BP systolic 134–196; BP diastolic 69–102; PULSE 96–132; RESP 18–22
[2016-09-04] MEDS: INSULIN ASPART [NOVOLOG] 3 ML PEN SC SCH ×9 (01:00→21:17)
[2016-09-04] MEDS: SOD CHLORIDE 0.45% 1,000 ML IV SCH ×2 (01:31→15:47)
[2016-09-04] MEDS: LORAZEPAM 2 MG INJ IV PRN (05:10)
[2016-09-04] MEDS: CLOPIDOGREL 75 MG TAB PO SCH (09:00)
[2016-09-04] MEDS: GEMFIBROZIL 600 MG TAB PO SCH ×2 (09:00→21:00)
[2016-09-04] MEDS: ASPIRIN (EC) 325 MG TAB PO SCH (09:00)
[2016-09-04] MEDS: FAMOTIDINE 20 MG INJ IV SCH ×2 (09:06→21:19)
[2016-09-04 10:32] LABS: POTASSIUM 4.2 mmol/L (3.5-5.1)
[2016-09-04 10:35] LABS: CREATININE 0.64 mg/dl (0.61-1.24)
[2016-09-04 10:41] LABS: EOSINOPHILS % 0.2 % (0.0-7.0); HEMATOCRIT 41.3 % (42.0-52.0); LYMPHOCYTES # 1.3 10^3/ul (0.8-2.9); LYMPHOCYTES % 12.1 % (15.0-51.0); MEAN CORPUSCULAR HEMOGLOBIN 28.1 pg (29.0-33.0); MEAN CORPUSCULAR HGB CONC 33.9 g/dl (32.0-37.0); MEAN CORPUSCULAR VOLUME 82.9 fl (82.0-101.0); MEAN PLATELET VOLUME 10.5 fl (7.4-10.4); MONOCYTE # 0.9 10^3/ul (0.3-0.9); MONOCYTES % 8.5 % (0.0-11.0); NEUTROPHIL # 8.6 10^3/ul (1.6-7.5); NEUTROPHILS % 79.2 % (39.0-77.0); PLATELET COUNT 267 10^3/UL (140-440); RED BLOOD COUNT 4.98 10^6/ul (4.70-6.10); RED CELL DISTRIBUTION WIDTH 12.8 % (11.5-14.5); UNCORRECTED WBC 10.9 10^3/ul (4.8-10.8); WHITE BLOOD COUNT 10.9 10^3/ul (4.8-10.8)
[2016-09-04 11:00] LABS: CONDITION 1
--- NOTE | 2016-09-04 12:12 | PN ---
Date/Time of Note Date/Time of Note DATE: 09/04/16 TIME: 12:07 Assessment/Plan VTE Prophylaxis VTE Prophylaxis Intervention: SCD's Lines/Catheters IV [facility] Type (from [facility]): Peripheral IV Urinary Cath still in place: No Assessment/Plan Chief Complaint/Hosp Course ASSESSMENT AND PLAN: 66-year-old male coming in with left-sided weakness and facial droop with signs of positive stroke on the head CT. 1. CVA w/ left weakness - MRI of the brain shows: Acute non hemorrhagic left basal ganglia and right neural white matter infarcts. ECHO from 08/24 showed: Conclusions 1. Normal left ventricular cavity size. Normal left ventricular systolic function. Tissue Doppler/Mitral Doppler indices are consistent with impaired relaxation (Stage I diastolic dysfunction). Moderate concentric left ventricular hypertrophy. The left ventricular ejection fraction is visually estimated at 60 %. - continue high-dose aspirin - neuro checks every 4 hours as well, high cholesterol medicine - f/u neurology consult rec's, and will start controlling bp today - f/u PT, OT and speech therapy consults as well (NPO for now) 2. Diabetes -sliding scale insulin and his home insulins. 3. Hypertension - today will start controlling bp with meds today 4. Gastrointestinal prophylaxis. H2 mariano. 5. Deep venous thrombosis prophylaxis. SCD's 6. History of peripheral vascular disease. Continue aspirin, Plavix for now. Problems: Subjective 24 Hr Interval Summary Free Text/Dictation Pt still in restraints, no acute events overnight however, seen by Neuro team. Taras nursing, recommended to be NPO by ST team. Exam/Review of Systems Vital Signs Vitals Vital Signs Date Time Temp Pulse Resp B/P Pulse Ox O2 Delivery O2 Flow Rate FiO2 09/04/16 11:15 98.5 123 18 177/102 98 09/04/16 06:06 Nasal Cannula 09/03/16 20:50 2.0 Intake and Output 09/03/16 09/03/16 09/04/16 15:00 23:00 07:00 Intake Total 30 ml 100 ml Balance 30 ml 100 ml Exam GENERAL: The patient is lying in bed asking for water, family members at the bedside, in mild distress. HEENT: Pupils equal, round, react to light. Extraocular muscles intact but there is some left-sided facial droop noted. NECK: Supple. No thyromegaly. LUNGS: Clear to auscultation bilaterally. CARDIOVASCULAR: S1 and S2 heard. No rubs, gallops. ABDOMEN: Soft, nontender, nondistended. Normal bowel sounds. No rebound or guarding. MUSCULOSKELETAL: No lower extremity edema bilaterally. NEUROLOGIC: decreased strength in the left upper and left lower extremities. Normal strength and sensation, right upper and right lower extremities. Gait was not assessed. PSYCHIATRIC: Normal mood and affect. Results Result Diagram: 09/04/16 1000 09/04/16 1000 Results 24 hrs Laboratory Tests Test 09/03/16 12:56 09/03/16 16:51 09/03/16 20:13 09/04/16 04:54 Bedside Glucose 208 210 124 265 H Test 09/04/16 07:55 09/04/16 10:00 Bedside Glucose 225 H Anion Gap 20 H Basophils # 0.0 Basophils % 0.0 Blood Morphology Comment Blood Urea Nitrogen 12 Calcium Level 9.0 Carbon Dioxide Level 18 L Chloride Level 102 Creatinine 0.64 Eosinophils # 0.0 Eosinophils % 0.2 Glucose Level 233 H Hematocrit 41.3 L Hemoglobin 14.0 Lymphocytes # 1.3 Lymphocytes % 12.1 L Mean Corpuscular Hemoglobin 28.1 L Mean Corpuscular Hemoglobin Concent 33.9 Mean Corpuscular Volume 82.9 Mean Platelet Volume 10.5 H Monocytes # 0.9 Monocytes % 8.5 Neutrophils # 8.6 H Neutrophils % 79.2 H Nucleated Red Blood Cells # 0.0 Nucleated Red Blood Cells % 0.0 Platelet Count 267 Potassium Level 4.2 Red Blood Count 4.98 Red Cell Distribution Width 12.8 Sodium Level 136 White Blood Count 10.9 H Medications Medications Current Medications Acetaminophen (Tylenol Tab) 650 mg Q6H PRN PO PAIN LEVEL 1-3 OR FEVER; Start 09/02/16 at 17:00 Acetaminophen/ Hydrocodone Bitart ([place] (5/325)) 1 tab Q6H PRN PO MODERATE PAIN LEVEL 4-6; Start 09/02/16 at 17:00 Morphine Sulfate (morphine) 2 mg Q4H PRN IV SEVERE PAIN LEVEL 7-10 Last administered on 09/03/16at 02:39; Admin Dose 2 MG; Start 09/02/16 at 17:00 Docusate Sodium (Colace) 100 mg Q12H PRN PO CONSTIPATION; Start 09/02/16 at 17 :00 Sodium Biphosphate/ Sodium Phosphate (Fleet Enema) 133 ml DAILY PRN [place] CONSTIPATION; Start 09/02/16 at 17:00 Famotidine (Pepcid Iv) 20 mg Q12 IV Last administered on 09/04/16at 09:06; Admin Dose 20 MG; Start 09/02/16 at 21:00 Ondansetron HCl 4 mg 4 mg Q6H PRN IV NAUSEA AND/OR VOMITING; Start 09/02/16 at 17:00 Sodium Chloride (1/2 NS) 1,000 ml @ 75 mls/hr [id number] IV Last administered on 09/04/16at 01:31; Admin Dose 75 MLS/HR; Start 09/02/16 at 16:57 Lorazepam (Ativan) 0.5 mg Q6H PRN IV ANXIETY Last administered on 09/04/16at 05 :10; Admin Dose 0.5 MG; Start 09/02/16 at 17:00 Hydralazine HCl (Apresoline) 10 mg Q6H PRN IV ELEVATED BLOOD PRESSURE Last administered on 09/03/16at 23:01; Admin Dose 10 MG; Start 09/02/16 at 17:00 Nitroglycerin (Nitroglycerin (Sl Tab) 0.4 Mg) 1 tab Q5M PRN SL ANGINA; Start 09/02/16 at 17:00 Aspirin (Ecotrin) 325 mg DAILY PO ; Start 09/03/16 at 09:00 Clopidogrel Bisulfate (plaVIX) 75 mg DAILY PO Last administered on 09/03/16at 15:16; Admin Dose 75 MG; Start 09/03/16 at 09:00 Enoxaparin Sodium (Lovenox) 40 mg DAILY SC ; Start 09/03/16 at 09:00; Status Future Hold Gemfibrozil (Lopid) 600 mg BID PO Last administered on 09/02/16at 23:58; Admin Dose 600 MG; Start 09/02/16 at 21:00 Insulin Glargine (Lantus) 45 unit HS SC Last administered on 09/03/16at 22:14; Admin Dose 45 UNIT; Start 09/02/16 at 21:00 Magnesium Hydroxide (Milk Of Mag) 30 ml DAILY PRN PO CONSTIPATION; Start 09/02 at 17:00 Atorvastatin Calcium (Lipitor) 80 mg HS PO ; Start 09/02/16 at 21:00 Miscellaneous Information 1 ea NOTE XX ; Start 09/02/16 at 18:00 Glucose (Glutose) 15 gm Q15M PRN PO DECREASED GLUCOSE; Start 09/02/16 at 18:00 Glucose (Glutose) 22.5 gm Q15M PRN PO DECREASED GLUCOSE; Start 09/02/16 at 18: 00 Dextrose (D50w Syringe) 25 ml Q15M PRN IV DECREASED GLUCOSE; Start 09/02/16 at 18:00 Dextrose (D50w Syringe) 50 ml Q15M PRN IV DECREASED GLUCOSE; Start 09/02/16 at 18:00 Glucagon (Glucagen) 1 mg Q15M PRN IM DECREASED GLUCOSE; Start 09/02/16 at 18: 00 Glucose (Glutose) 15 gm Q15M PRN BUCCAL DECREASED GLUCOSE; Start 09/02/16 at 18:00 Insulin Aspart (Novolog Insulin Pen) NOVOLOG *MODERATE* ALGORI... Q4 SC Last administered on 09/04/16at 05:13; Admin Dose 8 UNIT; Start 09/02/16 at 21:00 ALBINA HUERTA Sep 04, 2016 12:12
[2016-09-04] MEDS: hydrALAzine 20 MG INJ IV PRN (14:01)
[2016-09-04] MEDS: morphine 2 MG INJ IV PRN (16:17)
[2016-09-04] MEDS: ATORVASTATIN 80 MG TAB PO SCH (21:00)
[2016-09-04] MEDS: INSULIN GLARGINE [LANtus] 3 ML PEN SC SCH (21:18)
[2016-09-05] VITALS (18 sets, daily range): BP systolic 117–189; BP diastolic 61–95; PULSE 73–121; RESP 18–20
[2016-09-05] MEDS: hydrALAzine 20 MG INJ IV PRN ×3 (00:06→21:54)
[2016-09-05] MEDS: INSULIN ASPART [NOVOLOG] 3 ML PEN SC SCH ×9 (01:50→20:51)
[2016-09-05] MEDS: LORAZEPAM 2 MG INJ IV PRN (02:37)
[2016-09-05] MEDS: GEMFIBROZIL 600 MG TAB PO SCH ×3 (09:00→20:52)
[2016-09-05] MEDS: ASPIRIN (EC) 325 MG TAB PO SCH ×2 (09:00→09:26)
[2016-09-05] MEDS: CLOPIDOGREL 75 MG TAB PO SCH ×2 (09:00→09:26)
[2016-09-05] MEDS: FAMOTIDINE 20 MG INJ IV SCH ×2 (09:26→20:52)
[2016-09-05] MEDS: SOD CHLORIDE 0.45% 1,000 ML IV SCH (10:52)
--- NOTE | 2016-09-05 11:30 | PN ---
Date/Time of Note Date/Time of Note DATE: 09/05/16 TIME: 11:28 Assessment/Plan VTE Prophylaxis VTE Prophylaxis Intervention: SCD's Lines/Catheters IV C[facility]ter Type (from [facility] Peripheral IV Urinary Cath still in place: No Assessment/Plan Chief Complaint/Hosp Course ASSESSMENT AND PLAN: 66-year-old male coming in with left-sided weakness and facial droop with signs of positive stroke on the head CT. 1. CVA w/ left weakness - MRI of the brain shows: Acute non hemorrhagic left basal ganglia and right neural white matter infarcts. ECHO from 08/24 showed: Conclusions 1. Normal left ventricular cavity size. Normal left ventricular systolic function. Tissue Doppler/Mitral Doppler indices are consistent with impaired relaxation (Stage I diastolic dysfunction). Moderate concentric left ventricular hypertrophy. The left ventricular ejection fraction is visually estimated at 60 %. - continue high-dose aspirin - neuro checks every 4 hours as well, high cholesterol medicine - f/u neurology consult rec's, tx bp - f/u PT, OT and speech therapy consults as well (NPO for now) - ST will reevaluate today 2. Diabetes -sliding scale insulin and his home insulins. 3. Hypertension - continue hydralazine IV prn > 160 4. Gastrointestinal prophylaxis. H2 mariano. 5. Deep venous thrombosis prophylaxis. SCD's 6. History of peripheral vascular disease. Continue aspirin, Plavix for now. Problems: Subjective 24 Hr Interval Summary Free Text/Dictation Pt a bit more alert today, but still lethargic. Exam/Review of Systems Vital Signs Vitals Vital Signs Date Time Temp Pulse Resp B/P Pulse Ox O2 Delivery O2 Flow Rate FiO2 09/05/16 09:03 119 09/05/16 09:00 97.9 20 142/75 2 09/05/16 05:45 2.0 09/04/16 20:30 Nasal Cannula 09/04/16 17:10 28 Exam GENERAL: The patient is lying, lethargic,in mild distress. HEENT: Pupils equal, round, react to light. Extraocular muscles intact but there is some left-sided facial droop noted. NECK: Supple. No thyromegaly. LUNGS: Clear to auscultation bilaterally. CARDIOVASCULAR: S1 and S2 heard. No rubs, gallops. ABDOMEN: Soft, nontender, nondistended. Normal bowel sounds. No rebound or guarding. MUSCULOSKELETAL: No lower extremity edema bilaterally. NEUROLOGIC: decreased strength in the left upper and left lower extremities. Normal strength and sensation, right upper and right lower extremities. Gait was not assessed. PSYCHIATRIC: Normal mood and affect. Results Result Diagram: 09/04/16 1000 09/04/16 1000 Results 24 hrs Laboratory Tests Test 09/04/16 12:09 09/04/16 17:45 09/04/16 20:32 09/05/16 01:30 Bedside Glucose 218 210 192 153 Test 09/05/16 05:24 09/05/16 08:12 Bedside Glucose 146 93 Medications Medications Current Medications Acetaminophen (Tylenol Tab) 650 mg Q6H PRN PO PAIN LEVEL 1-3 OR FEVER; Start 09/02/16 at 17:00 Acetaminophen/ Hydrocodone Bitart ([place] (5/325)) 1 tab Q6H PRN PO MODERATE PAIN LEVEL 4-6; Start 09/02/16 at 17:00 Morphine Sulfate (morphine) 2 mg Q4H PRN IV SEVERE PAIN LEVEL 7-10 Last administered on 09/04/16at 16:17; Admin Dose 2 MG; Start 09/02/16 at 17:00 Docusate Sodium (Colace) 100 mg Q12H PRN PO CONSTIPATION; Start 09/02/16 at 17 :00 Sodium Biphosphate/ Sodium Phosphate (Fleet Enema) 133 ml DAILY PRN [place] CONSTIPATION; Start 09/02/16 at 17:00 Famotidine (Pepcid Iv) 20 mg Q12 IV Last administered on 09/05/16at 09:26; Admin Dose 20 MG; Start 09/02/16 at 21:00 Ondansetron HCl 4 mg 4 mg Q6H PRN IV NAUSEA AND/OR VOMITING; Start 09/02/16 at 17:00 Sodium Chloride (1/2 NS) 1,000 ml @ 75 mls/hr [id number] IV Last administered on 09/05/16at 10:52; Admin Dose 75 MLS/HR; Start 09/02/16 at 16:57 Lorazepam (Ativan) 0.5 mg Q6H PRN IV ANXIETY Last administered on 09/05/16at 02 :37; Admin Dose 0.5 MG; Start 09/02/16 at 17:00 Nitroglycerin (Nitroglycerin (Sl Tab) 0.4 Mg) 1 tab Q5M PRN SL ANGINA; Start 09/02/16 at 17:00 Aspirin (Ecotrin) 325 mg DAILY PO ; Start 09/03/16 at 09:00 Clopidogrel Bisulfate (plaVIX) 75 mg DAILY PO Last administered on 09/03/16at 15:16; Admin Dose 75 MG; Start 09/03/16 at 09:00 Enoxaparin Sodium (Lovenox) 40 mg DAILY SC ; Start 09/03/16 at 09:00; Status Future Hold Gemfibrozil (Lopid) 600 mg BID PO Last administered on 09/02/16at 23:58; Admin Dose 600 MG; Start 09/02/16 at 21:00 Insulin Glargine (Lantus) 45 unit HS SC Last administered on 09/04/16at 21:18; Admin Dose 45 UNIT; Start 09/02/16 at 21:00 Magnesium Hydroxide (Milk Of Mag) 30 ml DAILY PRN PO CONSTIPATION; Start 09/02 at 17:00 Atorvastatin Calcium (Lipitor) 80 mg HS PO ; Start 09/02/16 at 21:00 Miscellaneous Information 1 ea NOTE XX ; Start 09/02/16 at 18:00 Glucose (Glutose) 15 gm Q15M PRN PO DECREASED GLUCOSE; Start 09/02/16 at 18:00 Glucose (Glutose) 22.5 gm Q15M PRN PO DECREASED GLUCOSE; Start 09/02/16 at 18: 00 Dextrose (D50w Syringe) 25 ml Q15M PRN IV DECREASED GLUCOSE; Start 09/02/16 at 18:00 Dextrose (D50w Syringe) 50 ml Q15M PRN IV DECREASED GLUCOSE; Start 09/02/16 at 18:00 Glucagon (Glucagen) 1 mg Q15M PRN IM DECREASED GLUCOSE; Start 09/02/16 at 18: 00 Glucose (Glutose) 15 gm Q15M PRN BUCCAL DECREASED GLUCOSE; Start 09/02/16 at 18:00 Insulin Aspart (Novolog Insulin Pen) NOVOLOG *MODERATE* ALGORI... Q4 SC Last administered on 09/05/16at 01:50; Admin Dose 2 UNIT; Start 09/02/16 at 21:00 Hydralazine HCl (Apresoline) 10 mg Q4H PRN IV ELEVATED BLOOD PRESSURE; Start 09/05/16 at 15:00 ALBINA HUERTA Sep 05, 2016 11:30
[2016-09-05] MEDS: morphine 2 MG INJ IV PRN (11:58)
[2016-09-05 12:26] LABS: BASOPHILS % 0.3 % (0.0-2.0); EOSINOPHILS # 0.2 10^3/ul (0.0-0.5); EOSINOPHILS % 1.5 % (0.0-7.0); HEMATOCRIT 43.2 % (42.0-52.0); HEMOGLOBIN 14.5 g/dl (14.0-18.0); LYMPHOCYTES # 1.6 10^3/ul (0.8-2.9); LYMPHOCYTES % 13.5 % (15.0-51.0); MEAN CORPUSCULAR HEMOGLOBIN 27.8 pg (29.0-33.0); MEAN CORPUSCULAR HGB CONC 33.6 g/dl (32.0-37.0); MEAN CORPUSCULAR VOLUME 82.6 fl (82.0-101.0); MEAN PLATELET VOLUME 10.4 fl (7.4-10.4); MONOCYTES % 8.3 % (0.0-11.0); NEUTROPHILS % 76.4 % (39.0-77.0); PLATELET COUNT 292 10^3/UL (140-440); RED BLOOD COUNT 5.23 10^6/ul (4.70-6.10); RED CELL DISTRIBUTION WIDTH 12.9 % (11.5-14.5); UNCORRECTED WBC 11.8 10^3/ul (4.8-10.8); WHITE BLOOD COUNT 11.8 10^3/ul (4.8-10.8)
[2016-09-05 12:32] LABS: CONDITION 1; POTASSIUM 3.3 mmol/L (3.5-5.1)
[2016-09-05 12:35] LABS: CREATININE 0.65 mg/dl (0.61-1.24)
[2016-09-05 12:36] LABS: CALCIUM 9.7 mg/dl (8.4-10.2)
[2016-09-05] MEDS: ATORVASTATIN 80 MG TAB PO SCH (20:52)
[2016-09-05] MEDS: INSULIN GLARGINE [LANtus] 3 ML PEN SC SCH (20:57)
[2016-09-06] VITALS (15 sets, daily range): BP systolic 95–183; BP diastolic 50–87; PULSE 64–113; RESP 18–20
[2016-09-06] MEDS: SOD CHLORIDE 0.45% 1,000 ML IV SCH ×2 (00:43→14:56)
[2016-09-06] MEDS: INSULIN ASPART [NOVOLOG] 3 ML PEN SC SCH ×9 (01:00→21:00)
[2016-09-06] MEDS: morphine 2 MG INJ IV PRN (02:48)
[2016-09-06] MEDS: FAMOTIDINE 20 MG INJ IV SCH ×2 (09:45→21:25)
[2016-09-06] MEDS: CLOPIDOGREL 75 MG TAB PO SCH (09:46)
[2016-09-06] MEDS: ASPIRIN (EC) 325 MG TAB PO SCH (09:46)
[2016-09-06] MEDS: GEMFIBROZIL 600 MG TAB PO SCH ×2 (09:46→21:26)
[2016-09-06 10:04] LABS: POTASSIUM 3.3 mmol/L (3.5-5.1)
[2016-09-06 10:07] LABS: CALCIUM 9.1 mg/dl (8.4-10.2); CREATININE 0.83 mg/dl (0.61-1.24)
[2016-09-06 10:23] LABS: BASOPHILS % 0.6 % (0.0-2.0); EOSINOPHILS # 0.2 10^3/ul (0.0-0.5); HEMATOCRIT 39.8 % (42.0-52.0); HEMOGLOBIN 13.4 g/dl (14.0-18.0); LYMPHOCYTES # 1.9 10^3/ul (0.8-2.9); LYMPHOCYTES % 22.4 % (15.0-51.0); MEAN CORPUSCULAR HEMOGLOBIN 27.8 pg (29.0-33.0); MEAN CORPUSCULAR HGB CONC 33.7 g/dl (32.0-37.0); MEAN CORPUSCULAR VOLUME 82.7 fl (82.0-101.0); MEAN PLATELET VOLUME 10.1 fl (7.4-10.4); MONOCYTE # 0.8 10^3/ul (0.3-0.9); MONOCYTES % 9.3 % (0.0-11.0); NEUTROPHIL # 5.7 10^3/ul (1.6-7.5); NEUTROPHILS % 65.7 % (39.0-77.0); PLATELET COUNT 260 10^3/UL (140-440); RED BLOOD COUNT 4.82 10^6/ul (4.70-6.10); UNCORRECTED WBC 8.7 10^3/ul (4.8-10.8); WHITE BLOOD COUNT 8.7 10^3/ul (4.8-10.8)
[2016-09-06 10:26] LABS: CONDITION 1
[2016-09-06] MEDS ORDERED: POTASSIUM CHLORIDE 250 ML IVPB ONE (11:00)
[2016-09-06] MEDS: hydrALAzine 20 MG INJ IV PRN (11:18)
--- NOTE | 2016-09-06 11:49 | PN ---
Date/Time of Note Date/Time of Note DATE: 09/06/16 TIME: 11:47 Assessment/Plan VTE Prophylaxis VTE Prophylaxis Intervention: SCD's Lines/Catheters [facility] (from [facility] Peripheral IV Urinary Cath still in place: No Assessment/Plan Chief Complaint/Hosp Course ASSESSMENT AND PLAN: 66-year-old male coming in with left-sided weakness and facial droop with signs of positive stroke on the head CT. 1. CVA w/ left weakness - MRI of the brain shows: Acute non hemorrhagic left basal ganglia and right neural white matter infarcts. ECHO from 08/24 showed: Conclusions 1. Normal left ventricular cavity size. Normal left ventricular systolic function. Tissue Doppler/Mitral Doppler indices are consistent with impaired relaxation (Stage I diastolic dysfunction). Moderate concentric left ventricular hypertrophy. The left ventricular ejection fraction is visually estimated at 60 %. - continue high-dose aspirin - neuro checks every 4 hours as well, high cholesterol medicine - f/u neurology consult rec's, tx bp - f/u PT, OT and speech therapy rec's 2. Diabetes -sliding scale insulin and his home insulins. 3. Hypertension - continue hydralazine IV prn > 160, restart home bp meds today since he can tolerate PO meds now 4. Gastrointestinal prophylaxis. H2 mariano. 5. Deep venous thrombosis prophylaxis. SCD's 6. History of peripheral vascular disease. Continue aspirin, Plavix for now. Problems: Subjective 24 Hr Interval Summary Free Text/Dictation Pt a bit more alert today, started on puree diet yesterday. Exam/Review of Systems Vital Signs Vitals Vital Signs Date Time Temp Pulse Resp B/P Pulse Ox O2 Delivery O2 Flow Rate FiO2 09/06/16 11:31 98.0 92 20 183/87 97 09/06/16 03:20 09/06/16 02:46 Nasal Cannula 09/06/16 01:19 2.0 Intake and Output 09/05/16 09/05/16 09/06/16 15:00 23:00 07:00 Intake Total 925 ml Balance 925 ml Exam GENERAL: The patient is lying, lethargic, but arousable HEENT: Pupils equal, round, react to light. Extraocular muscles intact but there is some left-sided facial droop noted. NECK: Supple. No thyromegaly. LUNGS: Clear to auscultation bilaterally. CARDIOVASCULAR: S1 and S2 heard. No rubs, gallops. ABDOMEN: Soft, nontender, nondistended. Normal bowel sounds. No rebound or guarding. MUSCULOSKELETAL: No lower extremity edema bilaterally. NEUROLOGIC: decreased strength in the left upper and left lower extremities. Normal strength and sensation, right upper and right lower extremities. Gait was not assessed. PSYCHIATRIC: Normal mood and affect. Results Result Diagram: 09/06/16 0948 09/06/16 0946 Results 24 hrs Laboratory Tests Test 09/05/16 11:54 09/05/16 17:52 09/05/16 19:59 09/06/16 01:34 Bedside Glucose 98 108 122 106 Test 09/06/16 05:48 09/06/16 07:56 09/06/16 09:46 09/06/16 09:48 Bedside Glucose 79 73 Anion Gap 17 H Blood Urea Nitrogen 19 Calcium Level 9.1 Carbon Dioxide Level 21 Chloride Level 105 Creatinine 0.83 Glucose Level 118 Potassium Level 3.3 L Sodium Level 140 Basophils # 0.0 Basophils % 0.6 Blood Morphology Comment Eosinophils # 0.2 Eosinophils % 2.0 Hematocrit 39.8 L Hemoglobin 13.4 L Lymphocytes # 1.9 Lymphocytes % 22.4 Mean Corpuscular Hemoglobin 27.8 L Mean Corpuscular Hemoglobin Concent 33.7 Mean Corpuscular Volume 82.7 Mean Platelet Volume 10.1 Monocytes # 0.8 Monocytes % 9.3 Neutrophils # 5.7 Neutrophils % 65.7 Nucleated Red Blood Cells # 0.0 Nucleated Red Blood Cells % 0.0 Platelet Count 260 Red Blood Count 4.82 Red Cell Distribution Width 13.0 White Blood Count 8.7 # Test 09/06/16 11:32 Bedside Glucose 162 Medications Medications Current Medications Acetaminophen (Tylenol Tab) 650 mg Q6H PRN PO PAIN LEVEL 1-3 OR FEVER; Start 09/02/16 at 17:00 Acetaminophen/ Hydrocodone Bitart ([place] (5/325)) 1 tab Q6H PRN PO MODERATE PAIN LEVEL 4-6; Start 09/02/16 at 17:00 Morphine Sulfate (morphine) 2 mg Q4H PRN IV SEVERE PAIN LEVEL 7-10 Last administered on 09/06/16at 02:48; Admin Dose 2 MG; Start 09/02/16 at 17:00 Docusate Sodium (Colace) 100 mg Q12H PRN PO CONSTIPATION; Start 09/02/16 at 17 :00 Sodium Biphosphate/ Sodium Phosphate (Fleet Enema) 133 ml DAILY PRN [place] CONSTIPATION; Start 09/02/16 at 17:00 Famotidine (Pepcid Iv) 20 mg Q12 IV Last administered on 09/06/16at 09:45; Admin Dose 20 MG; Start 09/02/16 at 21:00 Ondansetron HCl 4 mg 4 mg Q6H PRN IV NAUSEA AND/OR VOMITING; Start 09/02/16 at 17:00 Sodium Chloride (1/2 NS) 1,000 ml @ 75 mls/hr [id number] IV Last administered on 09/06/16at 00:43; Admin Dose 75 MLS/HR; Start 09/02/16 at 16:57 Lorazepam (Ativan) 0.5 mg Q6H PRN IV ANXIETY Last administered on 09/05/16at 02 :37; Admin Dose 0.5 MG; Start 09/02/16 at 17:00 Nitroglycerin (Nitroglycerin (Sl Tab) 0.4 Mg) 1 tab Q5M PRN SL ANGINA; Start 09/02/16 at 17:00 Aspirin (Ecotrin) 325 mg DAILY PO Last administered on 09/06/16at 09:46; Admin Dose 325 MG; Start 09/03/16 at 09:00 Clopidogrel Bisulfate (plaVIX) 75 mg DAILY PO Last administered on 09/06/16at 09:46; Admin Dose 75 MG; Start 09/03/16 at 09:00 Enoxaparin Sodium (Lovenox) 40 mg DAILY SC ; Start 09/03/16 at 09:00; Status Future Hold Gemfibrozil (Lopid) 600 mg BID PO Last administered on 09/06/16at 09:46; Admin Dose 600 MG; Start 09/02/16 at 21:00 Insulin Glargine (Lantus) 45 unit HS SC Last administered on 09/05/16at 20:57; Admin Dose 45 UNIT; Start 09/02/16 at 21:00 Magnesium Hydroxide (Milk Of Mag) 30 ml DAILY PRN PO CONSTIPATION; Start 09/02 at 17:00 Atorvastatin Calcium (Lipitor) 80 mg HS PO Last administered on 09/05/16at 20: 52; Admin Dose 80 MG; Start 09/02/16 at 21:00 Miscellaneous Information 1 ea NOTE XX ; Start 09/02/16 at 18:00 Glucose (Glutose) 15 gm Q15M PRN PO DECREASED GLUCOSE; Start 09/02/16 at 18:00 Glucose (Glutose) 22.5 gm Q15M PRN PO DECREASED GLUCOSE; Start 09/02/16 at 18: 00 Dextrose (D50w Syringe) 25 ml Q15M PRN IV DECREASED GLUCOSE; Start 09/02/16 at 18:00 Dextrose (D50w Syringe) 50 ml Q15M PRN IV DECREASED GLUCOSE; Start 09/02/16 at 18:00 Glucagon (Glucagen) 1 mg Q15M PRN IM DECREASED GLUCOSE; Start 09/02/16 at 18: 00 Glucose (Glutose) 15 gm Q15M PRN BUCCAL DECREASED GLUCOSE; Start 09/02/16 at 18:00 Insulin Aspart (Novolog Insulin Pen) NOVOLOG *MODERATE* ALGORI... Q4 SC Last administered on 09/05/16at 01:50; Admin Dose 2 UNIT; Start 09/02/16 at 21:00 Hydralazine HCl 10 mg 10 mg Q4H PRN IV ELEVATED BLOOD PRESSURE Last administered on 09/06/16at 11:18; Admin Dose 10 MG; Start 09/05/16 at 15:00 Potassium Chloride (KCl 40 MEQ/250 ML NS) 250 ml @ 62.5 mls/hr ONCE ONCE IVPB Last administered on 09/06/16at 11:18; Admin Dose 62.5 MLS/HR; Start at 11:00; Stop 09/06/16 at 14:59 Amlodipine Besylate (Norvasc) 5 mg BID PO ; Start 09/06/16 at 11:30 Carvedilol (Coreg) 12.5 mg BID PO ; Start 09/06/16 at 11:30 Lisinopril (Zestril) 40 mg DAILY PO ; Start 09/06/16 at 11:30 ALBINA HUERTA Sep 06, 2016 11:49
[2016-09-06] MEDS: LISINOPRIL 20 MG TAB PO SCH (12:45)
[2016-09-06] MEDS: AMLODIPINE 5 MG TAB PO SCH ×2 (12:45→21:27)
[2016-09-06] MEDS: INSULIN GLARGINE [LANtus] 3 ML PEN SC SCH ×2 (21:00→21:37)
[2016-09-06] MEDS: ATORVASTATIN 80 MG TAB PO SCH (21:26)
[2016-09-06] MEDS ORDERED: INSULIN GLARGINE [LANtus] 3 ML PEN SC ONE (22:00)
[2016-09-07] VITALS (15 sets, daily range): BP systolic 102–178; BP diastolic 51–89; PULSE 59–89; RESP 17–21
[2016-09-07] MEDS: INSULIN ASPART [NOVOLOG] 3 ML PEN SC SCH ×7 (01:00→21:00)
[2016-09-07] MEDS: DEXTROSE 5%-0.9% NACL 1,000 ML IV SCH ×2 (01:50→15:41)
[2016-09-07 08:08] LABS: POTASSIUM 4.1 mmol/L (3.5-5.1)
[2016-09-07 08:10] LABS: CREATININE 0.71 mg/dl (0.61-1.24)
[2016-09-07 08:11] LABS: CALCIUM 8.9 mg/dl (8.4-10.2)
[2016-09-07 08:15] LABS: BASOPHILS % 0.4 % (0.0-2.0); EOSINOPHILS # 0.1 10^3/ul (0.0-0.5); EOSINOPHILS % 2.4 % (0.0-7.0); HEMATOCRIT 38.8 % (42.0-52.0); LYMPHOCYTES # 1.5 10^3/ul (0.8-2.9); LYMPHOCYTES % 24.7 % (15.0-51.0); MEAN CORPUSCULAR HGB CONC 33.5 g/dl (32.0-37.0); MEAN CORPUSCULAR VOLUME 83.7 fl (82.0-101.0); MEAN PLATELET VOLUME 10.2 fl (7.4-10.4); MONOCYTE # 0.6 10^3/ul (0.3-0.9); MONOCYTES % 10.5 % (0.0-11.0); NEUTROPHIL # 3.7 10^3/ul (1.6-7.5); PLATELET COUNT 232 10^3/UL (140-440); RED BLOOD COUNT 4.64 10^6/ul (4.70-6.10); RED CELL DISTRIBUTION WIDTH 13.4 % (11.5-14.5); UNCORRECTED WBC 5.9 10^3/ul (4.8-10.8); WHITE BLOOD COUNT 5.9 10^3/ul (4.8-10.8)
[2016-09-07 08:35] LABS: CONDITION 1
[2016-09-07] MEDS: LISINOPRIL 20 MG TAB PO SCH (08:53)
[2016-09-07] MEDS: GEMFIBROZIL 600 MG TAB PO SCH ×2 (08:53→21:11)
[2016-09-07] MEDS: ASPIRIN (EC) 325 MG TAB PO SCH (08:53)
[2016-09-07] MEDS: CLOPIDOGREL 75 MG TAB PO SCH (08:53)
[2016-09-07] MEDS: FAMOTIDINE 20 MG INJ IV SCH ×2 (08:53→21:10)
[2016-09-07] MEDS: AMLODIPINE 5 MG TAB PO SCH ×2 (08:54→21:11)
--- NOTE | 2016-09-07 10:08 | PN ---
Date/Time of Note Date/Time of Note DATE: 09/07/16 TIME: 10:05 Assessment/Plan VTE Prophylaxis VTE Prophylaxis Intervention: SCD's Lines/Catheters IV [facility] Type (from [facility]): Peripheral IV Urinary Cath still in place: No Assessment/Plan Chief Complaint/Hosp Course ASSESSMENT AND PLAN: 66-year-old male coming in with left-sided weakness and facial droop with signs of positive stroke on the head CT. 1. CVA w/ left weakness - MRI of the brain shows: Acute non hemorrhagic left basal ganglia and right neural white matter infarcts. ECHO from 08/24 showed: Conclusions 1. Normal left ventricular cavity size. Normal left ventricular systolic function. Tissue Doppler/Mitral Doppler indices are consistent with impaired relaxation (Stage I diastolic dysfunction). Moderate concentric left ventricular hypertrophy. The left ventricular ejection fraction is visually estimated at 60 %. - continue high-dose aspirin - neuro checks every 4 hours as well, statin - f/u neurology consult rec's, tx bp - f/u PT, OT and speech therapy rec's - St reeval today given throat pain and difficulty swallowing pills 2. Diabetes -sliding scale insulin and his home insulins - given lower sugars today will lower dose a bit on these meds. 3. Hypertension - continue hydralazine IV prn > 160, continue home bp meds today since he can tolerate PO meds now 4. Gastrointestinal prophylaxis. H2 mariano. 5. Deep venous thrombosis prophylaxis. SCD's 6. History of peripheral vascular disease. Continue aspirin, Plavix for now. Problems: Subjective 24 Hr Interval Summary Free Text/Dictation Pt a bit more alert today, but report difficulty swallowing pills. Exam/Review of Systems Vital Signs Vitals Vital Signs Date Time Temp Pulse Resp B/P Pulse Ox O2 Delivery O2 Flow Rate FiO2 09/07/16 08:16 61 09/07/16 07:48 Nasal Cannula 2.0 09/07/16 07:10 98.3 18 153/71 98 09/06/16 03:20 Intake and Output 09/06/16 09/06/16 09/07/16 14:59 22:59 06:59 Intake Total 480 ml 100 ml Balance 480 ml 100 ml Exam GENERAL: The patient is lying, a bit more alert today HEENT: Pupils equal, round, react to light. Extraocular muscles intact but there is some left-sided facial droop noted. NECK: Supple. No thyromegaly. LUNGS: Clear to auscultation bilaterally. CARDIOVASCULAR: S1 and S2 heard. No rubs, gallops. ABDOMEN: Soft, nontender, nondistended. Normal bowel sounds. No rebound or guarding. MUSCULOSKELETAL: No lower extremity edema bilaterally. NEUROLOGIC: decreased strength in the left upper and left lower extremities. Normal strength and sensation, right upper and right lower extremities. Gait was not assessed. PSYCHIATRIC: Normal mood and affect. Results Result Diagram: 09/07/16 0722 09/07/16 0722 Results 24 hrs Laboratory Tests Test 09/06/16 11:32 09/06/16 16:52 09/06/16 17:56 09/06/16 21:29 Bedside Glucose 162 174 157 72 Test 09/07/16 01:14 09/07/16 05:57 09/07/16 07:22 09/07/16 08:36 Bedside Glucose 71 107 141 Anion Gap 17 H Basophils # 0.0 Basophils % 0.4 Blood Morphology Comment Blood Urea Nitrogen 18 Calcium Level 8.9 Carbon Dioxide Level 22 Chloride Level 107 Creatinine 0.71 Eosinophils # 0.1 Eosinophils % 2.4 Glucose Level 127 Hematocrit 38.8 L Hemoglobin 13.0 L Lymphocytes # 1.5 Lymphocytes % 24.7 Mean Corpuscular Hemoglobin 28.0 L Mean Corpuscular Hemoglobin Concent 33.5 Mean Corpuscular Volume 83.7 Mean Platelet Volume 10.2 Monocytes # 0.6 Monocytes % 10.5 Neutrophils # 3.7 Neutrophils % 62.0 Nucleated Red Blood Cells # 0.0 Nucleated Red Blood Cells % 0.0 Platelet Count 232 Potassium Level 4.1 Red Blood Count 4.64 L Red Cell Distribution Width 13.4 Sodium Level 142 White Blood Count 5.9 # Medications Medications Current Medications Acetaminophen (Tylenol Tab) 650 mg Q6H PRN PO PAIN LEVEL 1-3 OR FEVER; Start 09/02/16 at 17:00 Acetaminophen/ Hydrocodone Bitart ([place] (5/325)) 1 tab Q6H PRN PO MODERATE PAIN LEVEL 4-6; Start 09/02/16 at 17:00 Morphine Sulfate (morphine) 2 mg Q4H PRN IV SEVERE PAIN LEVEL 7-10 Last administered on 09/06/16at 02:48; Admin Dose 2 MG; Start 09/02/16 at 17:00 Docusate Sodium (Colace) 100 mg Q12H PRN PO CONSTIPATION; Start 09/02/16 at 17 :00 Sodium Biphosphate/ Sodium Phosphate (Fleet Enema) 133 ml DAILY PRN [place] CONSTIPATION; Start 09/02/16 at 17:00 Famotidine (Pepcid Iv) 20 mg Q12 IV Last administered on 09/07/16 08:53; Admin Dose 20 MG; Start 09/02/16 at 21:00 Ondansetron HCl (Zofran Inj) 4 mg Q6H PRN IV NAUSEA AND/OR VOMITING; Start at 17:00 Lorazepam (Ativan) 0.5 mg Q6H PRN IV ANXIETY Last administered on 09/05/16at 02 :37; Admin Dose 0.5 MG; Start 09/02/16 at 17:00 Nitroglycerin (Nitroglycerin (Sl Tab) 0.4 Mg) 1 tab Q5M PRN SL ANGINA; Start 09/02/16 at 17:00 Aspirin (Ecotrin) 325 mg DAILY PO Last administered on 09/07/16at 08:53; Admin Dose 325 MG; Start 09/03/16 at 09:00 Clopidogrel Bisulfate (plaVIX) 75 mg DAILY PO Last administered on 09/07/16at 08:53; Admin Dose 75 MG; Start 09/03/16 at 09:00 Enoxaparin Sodium (Lovenox) 40 mg DAILY SC ; Start 09/03/16 at 09:00; Status Future Hold Gemfibrozil (Lopid) 600 mg BID PO Last administered on 09/07/16at 08:53; Admin Dose 600 MG; Start 09/02/16 at 21:00 Magnesium Hydroxide (Milk Of Mag) 30 ml DAILY PRN PO CONSTIPATION; Start 09/02 at 17:00 Atorvastatin Calcium (Lipitor) 80 mg HS PO Last administered on 09/06/16at 21: 26; Admin Dose 80 MG; Start 09/02/16 at 21:00 Miscellaneous Information 1 ea NOTE XX ; Start 09/02/16 at 18:00 Glucose (Glutose) 15 gm Q15M PRN PO DECREASED GLUCOSE; Start 09/02/16 at 18:00 Glucose (Glutose) 22.5 gm Q15M PRN PO DECREASED GLUCOSE; Start 09/02/16 at 18: 00 Dextrose (D50w Syringe) 25 ml Q15M PRN IV DECREASED GLUCOSE; Start 09/02/16 at 18:00 Dextrose (D50w Syringe) 50 ml Q15M PRN IV DECREASED GLUCOSE; Start 09/02/16 at 18:00 Glucagon (Glucagen) 1 mg Q15M PRN IM DECREASED GLUCOSE; Start 09/02/16 at 18: 00 Glucose (Glutose) 15 gm Q15M PRN BUCCAL DECREASED GLUCOSE; Start 09/02/16 at 18:00 Hydralazine HCl (Apresoline) 10 mg Q4H PRN IV ELEVATED BLOOD PRESSURE Last administered on 09/06/16at 11:18; Admin Dose 10 MG; Start 09/05/16 at 15:00 Amlodipine Besylate (Norvasc) 5 mg BID PO Last administered on 09/07/16at 08:54 ; Admin Dose 5 MG; Start 09/06/16 at 11:30 Carvedilol (Coreg) 12.5 mg BID PO Last administered on 09/07/16at 08:54; Admin Dose 12.5 MG; Start 09/06/16 at 11:30 Lisinopril 40 mg 40 mg DAILY PO Last administered on 09/07/16at 08:53; Admin Dose 40 MG; Start 09/06/16 at 11:30 Dextrose/Sodium Chloride (D5-NS) 1,000 ml @ 75 mls/hr [id number] IV Last administered on 09/07/16at 01:50; Admin Dose 75 MLS/HR; Start 09/07/16 at 02:00 Insulin Glargine (Lantus) 40 unit HS SC ; Start 09/07/16 at 21:00 ALBINA HUERTA Sep 07, 2016 10:08
[2016-09-07] MEDS: morphine 2 MG INJ IV PRN (16:32)
[2016-09-07] MEDS: hydrALAzine 20 MG INJ IV PRN (17:14)
[2016-09-07] MEDS: ATORVASTATIN 80 MG TAB PO SCH (21:11)
[2016-09-07] MEDS: INSULIN GLARGINE [LANtus] 3 ML PEN SC SCH (21:33)
[2016-09-08] VITALS (13 sets, daily range): BP systolic 143–200; BP diastolic 63–99; PULSE 68–85; RESP 18–20
[2016-09-08] MEDS: morphine 2 MG INJ IV PRN ×4 (01:46→19:16)
[2016-09-08] MEDS: DEXTROSE 5%-0.9% NACL 1,000 ML IV SCH ×2 (04:55→19:10)
[2016-09-08] MEDS: INSULIN ASPART [NOVOLOG] 3 ML PEN SC SCH ×7 (07:25→20:11)
[2016-09-08 07:55] LABS: BASOPHILS % 0.6 % (0.0-2.0); EOSINOPHILS # 0.2 10^3/ul (0.0-0.5); HEMATOCRIT 36.2 % (42.0-52.0); HEMOGLOBIN 12.2 g/dl (14.0-18.0); LYMPHOCYTES % 32.6 % (15.0-51.0); MEAN CORPUSCULAR HGB CONC 33.6 g/dl (32.0-37.0); MEAN CORPUSCULAR VOLUME 83.3 fl (82.0-101.0); MONOCYTE # 0.6 10^3/ul (0.3-0.9); MONOCYTES % 10.5 % (0.0-11.0); NEUTROPHIL # 3.3 10^3/ul (1.6-7.5); NEUTROPHILS % 53.3 % (39.0-77.0); PLATELET COUNT 238 10^3/UL (140-440); RED BLOOD COUNT 4.34 10^6/ul (4.70-6.10); RED CELL DISTRIBUTION WIDTH 13.3 % (11.5-14.5); UNCORRECTED WBC 6.1 10^3/ul (4.8-10.8); WHITE BLOOD COUNT 6.1 10^3/ul (4.8-10.8)
[2016-09-08 08:02] LABS: CONDITION 1
[2016-09-08 08:06] LABS: POTASSIUM 3.7 mmol/L (3.5-5.1)
[2016-09-08] MEDS: hydrALAzine 20 MG INJ IV PRN ×2 (08:08→20:13)
[2016-09-08 08:09] LABS: CREATININE 0.65 mg/dl (0.61-1.24)
[2016-09-08 08:10] LABS: CALCIUM 8.7 mg/dl (8.4-10.2)
[2016-09-08] MEDS: FAMOTIDINE 20 MG INJ IV SCH ×2 (08:11→20:15)
[2016-09-08] MEDS: GEMFIBROZIL 600 MG TAB PO SCH ×3 (09:30→20:23)
[2016-09-08] MEDS: AMLODIPINE 5 MG TAB PO SCH ×3 (09:30→20:23)
[2016-09-08] MEDS: CLOPIDOGREL 75 MG TAB PO SCH ×2 (09:30→09:37)
[2016-09-08] MEDS: ASPIRIN (EC) 325 MG TAB PO SCH ×2 (09:30→09:36)
[2016-09-08] MEDS: LISINOPRIL 20 MG TAB PO SCH ×2 (09:30→09:37)
--- NOTE | 2016-09-08 14:05 | PN ---
Date/Time of Note Date/Time of Note DATE: 09/08/16 TIME: 14:03 Assessment/Plan VTE Prophylaxis VTE Prophylaxis Intervention: SCD's Lines/Catheters IV [facility] ([facility] Peripheral IV Urinary Cath still in place: No Assessment/Plan Chief Complaint/Hosp Course ASSESSMENT AND PLAN: 66-year-old male coming in with left-sided weakness and facial droop with signs of positive stroke on the head CT. 1. CVA w/ left weakness - MRI of the brain shows: Acute non hemorrhagic left basal ganglia and right neural white matter infarcts. ECHO from 08/24 showed: Conclusions 1. Normal left ventricular cavity size. Normal left ventricular systolic function. Tissue Doppler/Mitral Doppler indices are consistent with impaired relaxation (Stage I diastolic dysfunction). Moderate concentric left ventricular hypertrophy. The left ventricular ejection fraction is visually estimated at 60 %. - continue high-dose aspirin - neuro checks every 4 hours as well, statin - f/u neurology consult rec's, tx bp - f/u PT, OT and speech therapy rec's - St reeval in AM (Friday) given throat pain and difficulty swallowing pills 2. Diabetes -sliding scale insulin and his home insulins 3. Hypertension - continue hydralazine IV prn > 160, continue home bp meds PO meds as tolerated 4. Gastrointestinal prophylaxis. H2 mariano. 5. Deep venous thrombosis prophylaxis. SCD's 6. History of peripheral vascular disease. Continue aspirin, Plavix for now. Problems: Subjective 24 Hr Interval Summary Free Text/Dictation Pt eating very minimal amt, not taking PO meds. No acute events overnight. Exam/Review of Systems Vital Signs Vitals Vital Signs Date Time Temp Pulse Resp B/P Pulse Ox O2 Delivery O2 Flow Rate FiO2 09/08/16 12:16 73 09/08/16 11:04 98.1 18 143/63 94 09/08/16 08:00 Nasal Cannula 2.0 09/06/16 03:20 Intake and Output 09/07/16 09/07/16 09/08/16 15:00 23:00 07:00 Intake Total 1720 ml 950 ml Balance 1720 ml 950 ml Exam GENERAL: The patient is lying in bed HEENT: Pupils equal, round, react to light. Extraocular muscles intact but there is some left-sided facial droop noted. NECK: Supple. No thyromegaly. LUNGS: Clear to auscultation bilaterally. CARDIOVASCULAR: S1 and S2 heard. No rubs, gallops. ABDOMEN: Soft, nontender, nondistended. Normal bowel sounds. No rebound or guarding. MUSCULOSKELETAL: No lower extremity edema bilaterally. NEUROLOGIC: decreased strength in the left upper and left lower extremities. Normal strength and sensation, right upper and right lower extremities. Gait was not assessed. PSYCHIATRIC: Normal mood and affect. Results Result Diagram: 09/08/16 0731 09/08/16 0731 Results 24 hrs Laboratory Tests Test 09/07/16 17:06 09/07/16 21:00 09/08/16 07:31 09/08/16 08:04 Bedside Glucose 127 126 119 Anion Gap 14 Basophils # 0.0 Basophils % 0.6 Blood Morphology Comment Blood Urea Nitrogen 8 # Calcium Level 8.7 Carbon Dioxide Level 25 Chloride Level 109 Creatinine 0.65 Eosinophils # 0.2 Eosinophils % 3.0 Glucose Level 121 Hematocrit 36.2 L Hemoglobin 12.2 L Lymphocytes # 2.0 Lymphocytes % 32.6 Mean Corpuscular Hemoglobin 28.0 L Mean Corpuscular Hemoglobin Concent 33.6 Mean Corpuscular Volume 83.3 Mean Platelet Volume 10.0 Monocytes # 0.6 Monocytes % 10.5 Neutrophils # 3.3 Neutrophils % 53.3 Nucleated Red Blood Cells # 0.0 Nucleated Red Blood Cells % 0.0 Platelet Count 238 Potassium Level 3.7 Red Blood Count 4.34 L Red Cell Distribution Width 13.3 Sodium Level 144 White Blood Count 6.1 Test 09/08/16 12:11 Bedside Glucose 162 Medications Medications Current Medications Acetaminophen (Tylenol Tab) 650 mg Q6H PRN PO PAIN LEVEL 1-3 OR FEVER; Start 09/02/16 at 17:00 Acetaminophen/ Hydrocodone Bitart ([place] (5/325)) 1 tab Q6H PRN PO MODERATE PAIN LEVEL 4-6; Start 09/02/16 at 17:00 Morphine Sulfate (morphine) 2 mg Q4H PRN IV SEVERE PAIN LEVEL 7-10 Last administered on 09/08/16at 12:33; Admin Dose 2 MG; Start 09/02/16 at 17:00 Docusate Sodium (Colace) 100 mg Q12H PRN PO CONSTIPATION; Start 09/02/16 at 17 :00 Sodium Biphosphate/ Sodium Phosphate (Fleet Enema) 133 ml DAILY PRN [place] CONSTIPATION; Start 09/02/16 at 17:00 Famotidine (Pepcid Iv) 20 mg Q12 IV Last administered on 09/08/16at 08:11; Admin Dose 20 MG; Start 09/02/16 at 21:00 Ondansetron HCl (Zofran Inj) 4 mg Q6H PRN IV NAUSEA AND/OR VOMITING; Start at 17:00 Lorazepam (Ativan) 0.5 mg Q6H PRN IV ANXIETY Last administered on 09/05/16at 02 :37; Admin Dose 0.5 MG; Start 09/02/16 at 17:00 Nitroglycerin (Nitroglycerin (Sl Tab) 0.4 Mg) 1 tab Q5M PRN SL ANGINA; Start 09/02/16 at 17:00 Aspirin (Ecotrin) 325 mg DAILY PO Last administered on 09/07/16at 08:53; Admin Dose 325 MG; Start 09/03/16 at 09:00 Clopidogrel Bisulfate (plaVIX) 75 mg DAILY PO Last administered on 09/07/16at 08:53; Admin Dose 75 MG; Start 09/03/16 at 09:00 Enoxaparin Sodium (Lovenox) 40 mg DAILY SC ; Start 09/03/16 at 09:00; Status Future Hold Gemfibrozil (Lopid) 600 mg BID PO Last administered on 09/07/16at 21:11; Admin Dose 600 MG; Start 09/02/16 at 21:00 Magnesium Hydroxide (Milk Of Mag) 30 ml DAILY PRN PO CONSTIPATION; Start 09/02 at 17:00 Atorvastatin Calcium (Lipitor) 80 mg HS PO Last administered on 09/07/16at 21: 11; Admin Dose 80 MG; Start 09/02/16 at 21:00 Miscellaneous Information 1 ea NOTE XX ; Start 09/02/16 at 18:00 Glucose (Glutose) 15 gm Q15M PRN PO DECREASED GLUCOSE; Start 09/02/16 at 18:00 Glucose (Glutose) 22.5 gm Q15M PRN PO DECREASED GLUCOSE; Start 09/02/16 at 18: 00 Dextrose (D50w Syringe) 25 ml Q15M PRN IV DECREASED GLUCOSE; Start 09/02/16 at 18:00 Dextrose (D50w Syringe) 50 ml Q15M PRN IV DECREASED GLUCOSE; Start 09/02/16 at 18:00 Glucagon (Glucagen) 1 mg Q15M PRN IM DECREASED GLUCOSE; Start 09/02/16 at 18: 00 Glucose (Glutose) 15 gm Q15M PRN BUCCAL DECREASED GLUCOSE; Start 09/02/16 at 18:00 Hydralazine HCl (Apresoline) 10 mg Q4H PRN IV ELEVATED BLOOD PRESSURE Last administered on 09/08/16 08:08; Admin Dose 10 MG; Start 09/05/16 at 15:00 Amlodipine Besylate (Norvasc) 5 mg BID PO Last administered on 09/07/16at 21:11 ; Admin Dose 5 MG; Start 09/06/16 at 11:30 Carvedilol (Coreg) 12.5 mg BID PO Last administered on 09/07/16at 21:11; Admin Dose 12.5 MG; Start 09/06/16 at 11:30 Lisinopril 40 mg 40 mg DAILY PO Last administered on 09/07/16at 08:53; Admin Dose 40 MG; Start 09/06/16 at 11:30 Dextrose/Sodium Chloride (D5-NS) 1,000 ml @ 75 mls/hr [id number] IV Last administered on 09/08/16 04:55; Admin Dose 75 MLS/HR; Start 09/07/16 at 02:00 Insulin Glargine (Lantus) 40 unit HS SC Last administered on 09/07/16at 21:33; Admin Dose 40 UNIT; Start 09/07/16 at 21:00 ALBINA HUERTA Sep 08, 2016 14:05
[2016-09-08] MEDS: INSULIN GLARGINE [LANtus] 3 ML PEN SC SCH (20:10)
[2016-09-08] MEDS: ATORVASTATIN 80 MG TAB PO SCH (20:23)
[2016-09-09] VITALS (13 sets, daily range): BP systolic 130–208; BP diastolic 67–99; PULSE 75–90; RESP 18–20
[2016-09-09] MEDS: morphine 2 MG INJ IV PRN ×4 (00:15→21:18)
[2016-09-09] MEDS: LORAZEPAM 2 MG INJ IV PRN (02:21)
[2016-09-09] MEDS: hydrALAzine 20 MG INJ IV PRN ×3 (03:26→20:21)
[2016-09-09] MEDS: DEXTROSE 5%-0.9% NACL 1,000 ML IV SCH ×2 (07:20→20:24)
[2016-09-09] MEDS: INSULIN ASPART [NOVOLOG] 3 ML PEN SC SCH ×7 (07:25→21:26)
[2016-09-09 07:38] LABS: BASOPHILS % 0.4 % (0.0-2.0); EOSINOPHILS # 0.1 10^3/ul (0.0-0.5); EOSINOPHILS % 2.1 % (0.0-7.0); HEMATOCRIT 37.8 % (42.0-52.0); HEMOGLOBIN 12.8 g/dl (14.0-18.0); LYMPHOCYTES # 1.6 10^3/ul (0.8-2.9); LYMPHOCYTES % 25.2 % (15.0-51.0); MEAN CORPUSCULAR HGB CONC 33.8 g/dl (32.0-37.0); MEAN CORPUSCULAR VOLUME 82.8 fl (82.0-101.0); MEAN PLATELET VOLUME 9.9 fl (7.4-10.4); MONOCYTE # 0.7 10^3/ul (0.3-0.9); MONOCYTES % 10.6 % (0.0-11.0); NEUTROPHILS % 61.7 % (39.0-77.0); PLATELET COUNT 239 10^3/UL (140-440); RED BLOOD COUNT 4.56 10^6/ul (4.70-6.10); RED CELL DISTRIBUTION WIDTH 12.9 % (11.5-14.5); UNCORRECTED WBC 6.5 10^3/ul (4.8-10.8); WHITE BLOOD COUNT 6.5 10^3/ul (4.8-10.8)
[2016-09-09 07:41] LABS: CONDITION 1
[2016-09-09 07:44] LABS: POTASSIUM 3.6 mmol/L (3.5-5.1)
[2016-09-09 07:46] LABS: CREATININE 0.62 mg/dl (0.61-1.24)
[2016-09-09 07:47] LABS: CALCIUM 8.8 mg/dl (8.4-10.2)
[2016-09-09] MEDS: AMLODIPINE 5 MG TAB PO SCH ×3 (09:00→21:00)
[2016-09-09] MEDS: ASPIRIN (EC) 325 MG TAB PO SCH ×2 (09:00→11:15)
[2016-09-09] MEDS: GEMFIBROZIL 600 MG TAB PO SCH ×3 (09:00→21:00)
[2016-09-09] MEDS: CLOPIDOGREL 75 MG TAB PO SCH ×2 (09:00→11:15)
[2016-09-09] MEDS: LISINOPRIL 20 MG TAB PO SCH ×2 (09:00→11:16)
--- NOTE | 2016-09-09 10:09 | PN ---
Date/Time of Note Date/Time of Note DATE: 09/09/16 TIME: 10:02 Assessment/Plan VTE Prophylaxis VTE Prophylaxis Intervention: SCD's Lines/Catheters IV Catheter Type (from Nrs): Peripheral IV Urinary Cath still in place: No Assessment/Plan Assessment/Plan 66-year-old male coming in with left-sided weakness and facial droop with signs of positive stroke on the head CT. 1. CVA w/ left weakness - MRI of the brain shows: Acute non hemorrhagic left basal ganglia and right neural white matter infarcts. ECHO from 08/24 showed: Conclusions - EF 60%, stage I diastolic dysfunction , LVH - continue high-dose aspirin - neuro checks every 4 hours as well, statin - f/u neurology consult rec's, tx bp - f/u PT, OT and speech therapy rec's - St re-eval in AM (Today) given throat pain and difficulty swallowing pills 2. Diabetes type II -sliding scale insulin and his home insulins, a1c 11.9 3. Hypertension essential - continue hydralazine IV prn > 160, continue home bp meds PO meds as tolerated 4. Depressed mood - will start celexa 20 mg po daily, once cleared by speech 5. Peripheral vascular disease. Continue aspirin, Plavix for now. 6. Gastrointestinal prophylaxis. H2 mariano. 7. Deep venous thrombosis prophylaxis. SCD's dispo- f/u recs, PT, speech repeat eval, as per clinical course - needs SNF/ Rehab this progress note took greater than 30 minutes to complete Exam/Review of Systems Vital Signs Vitals Vital Signs Date Time Temp Pulse Resp B/P Pulse Ox O2 Delivery O2 Flow Rate FiO2 09/09/16 08:16 84 09/09/16 07:29 98.5 20 188/91 97 09/08/16 21:59 2.0 09/08/16 20:10 Nasal Cannula 09/06/16 03:20 Intake and Output 09/08/16 09/08/16 09/09/16 15:00 23:00 07:00 Intake Total 1750 ml 950 ml Output Total 350 ml Balance 1750 ml 600 ml Exam Gen Elpidio: NAD, AAOx4 HEENT: left facial droop, PERRLA, EOMI, no carotid bruits present NECK: supple, no thyromegaly THORAX: symmetrical, no obvious deformities CV: S1S2, RRR, no M/G/R Lungs: CTAB no W/C/R/R Abd: soft, NT/ND, +BS, no rebound, no guarding, neg HSM EXT: left upper and lower extremity with flaccid paralysis, right with normal ROM, no edema, onychomycosis present Neuro: CN II-IV, , VIII-XII grossly intact, V, VII abnormal, l;eft sided flaccid paralysis Psych: depressed mood and affect Skin: C/D/I Results Result Diagram: 09/09/1615 09/09/16 0715 Results 24 hrs Laboratory Tests Test 09/08/16 12:11 09/08/16 17:45 09/08/16 20:06 09/09/16 07:15 Bedside Glucose 162 117 173 Anion Gap 14 Basophils # 0.0 Basophils % 0.4 Blood Morphology Comment Blood Urea Nitrogen 6 L Calcium Level 8.8 Carbon Dioxide Level 29 Chloride Level 104 Creatinine 0.62 Eosinophils # 0.1 Eosinophils % 2.1 Glucose Level 132 Hematocrit 37.8 L Hemoglobin 12.8 L Lymphocytes # 1.6 Lymphocytes % 25.2 Mean Corpuscular Hemoglobin 28.0 L Mean Corpuscular Hemoglobin Concent 33.8 Mean Corpuscular Volume 82.8 Mean Platelet Volume 9.9 Monocytes # 0.7 Monocytes % 10.6 Neutrophils # 4.0 Neutrophils % 61.7 Nucleated Red Blood Cells # 0.0 Nucleated Red Blood Cells % 0.0 Platelet Count 239 Potassium Level 3.6 Red Blood Count 4.56 L Red Cell Distribution Width 12.9 Sodium Level 143 White Blood Count 6.5 Test 09/09/16 07:56 Bedside Glucose 121 Medications Medications Current Medications Acetaminophen (Tylenol Tab) 650 mg Q6H PRN PO PAIN LEVEL 1-3 OR FEVER; Start 09/02/16 at 17:00 Acetaminophen/ Hydrocodone Bitart ([place] (5/325)) 1 tab Q6H PRN PO MODERATE PAIN LEVEL 4-6; Start 09/02/16 at 17:00 Morphine Sulfate (morphine) 2 mg Q4H PRN IV SEVERE PAIN LEVEL 7-10 Last administered on 09/09/16at 00:15; Admin Dose 2 MG; Start 09/02/16 at 17:00 Docusate Sodium (Colace) 100 mg Q12H PRN PO CONSTIPATION; Start 09/02/16 at 17 :00 Sodium Biphosphate/ Sodium Phosphate (Fleet Enema) 133 ml DAILY PRN [place] CONSTIPATION; Start 09/02/16 at 17:00 Famotidine (Pepcid Iv) 20 mg Q12 IV Last administered on 09/08/16at 20:15; Admin Dose 20 MG; Start 09/02/16 at 21:00 Ondansetron HCl (Zofran Inj) 4 mg Q6H PRN IV NAUSEA AND/OR VOMITING; Start at 17:00 Lorazepam (Ativan) 0.5 mg Q6H PRN IV ANXIETY Last administered on 09/09/16at 02 :21; Admin Dose 0.5 MG; Start 09/02/16 at 17:00 Nitroglycerin (Nitroglycerin (Sl Tab) 0.4 Mg) 1 tab Q5M PRN SL ANGINA; Start 09/02/16 at 17:00 Aspirin (Ecotrin) 325 mg DAILY PO Last administered on 09/07/16at 08:53; Admin Dose 325 MG; Start 09/03/16 at 09:00 Clopidogrel Bisulfate (plaVIX) 75 mg DAILY PO Last administered on 09/07/16at 08:53; Admin Dose 75 MG; Start 09/03/16 at 09:00 Enoxaparin Sodium (Lovenox) 40 mg DAILY SC ; Start 09/03/16 at 09:00; Status Future Hold Gemfibrozil (Lopid) 600 mg BID PO Last administered on 09/07/16at 21:11; Admin Dose 600 MG; Start 09/02/16 at 21:00 Magnesium Hydroxide (Milk Of Mag) 30 ml DAILY PRN PO CONSTIPATION; Start 09/02 at 17:00 Atorvastatin Calcium (Lipitor) 80 mg HS PO Last administered on 09/07/16at 21: 11; Admin Dose 80 MG; Start 09/02/16 at 21:00 Miscellaneous Information 1 ea NOTE XX ; Start 09/02/16 at 18:00 Glucose (Glutose) 15 gm Q15M PRN PO DECREASED GLUCOSE; Start 09/02/16 at 18:00 Glucose (Glutose) 22.5 gm Q15M PRN PO DECREASED GLUCOSE; Start 09/02/16 at 18: 00 Dextrose (D50w Syringe) 25 ml Q15M PRN IV DECREASED GLUCOSE; Start 09/02/16 at 18:00 Dextrose (D50w Syringe) 50 ml Q15M PRN IV DECREASED GLUCOSE; Start 09/02/16 at 18:00 Glucagon (Glucagen) 1 mg Q15M PRN IM DECREASED GLUCOSE; Start 09/02/16 at 18: 00 Glucose (Glutose) 15 gm Q15M PRN BUCCAL DECREASED GLUCOSE; Start 09/02/16 at 18:00 Hydralazine HCl (Apresoline) 10 mg Q4H PRN IV ELEVATED BLOOD PRESSURE Last administered on 09/09/16at 03:26; Admin Dose 10 MG; Start 09/05/16 at 15:00 Amlodipine Besylate (Norvasc) 5 mg BID PO Last administered on 09/07/16at 21:11 ; Admin Dose 5 MG; Start 09/06/16 at 11:30 Carvedilol (Coreg) 12.5 mg BID PO Last administered on 09/07/16at 21:11; Admin Dose 12.5 MG; Start 09/06/16 at 11:30 Lisinopril 40 mg 40 mg DAILY PO Last administered on 09/07/16at 08:53; Admin Dose 40 MG; Start 09/06/16 at 11:30 Dextrose/Sodium Chloride (D5-NS) 1,000 ml @ 75 mls/hr [id number] IV Last administered on 09/09/16at 07:20; Admin Dose 75 MLS/HR; Start 09/07/16 at 02:00 Insulin Glargine (Lantus) 40 unit HS SC Last administered on 09/08/16at 20:10; Admin Dose 40 UNIT; Start 09/07/16 at 21:00 Hydralazine HCl (Apresoline) 10 mg Q8 PO ; Start 09/09/16 at 09:00 CHRISSIE LOMAX MD Sep 09, 2016 10:09
[2016-09-09] MEDS: FAMOTIDINE 20 MG INJ IV SCH ×2 (11:16→21:19)
[2016-09-09] MEDS: ATORVASTATIN 80 MG TAB PO SCH (21:00)
[2016-09-09] MEDS: INSULIN GLARGINE [LANtus] 3 ML PEN SC SCH (21:27)
[2016-09-10] MEDS: morphine 2 MG INJ IV PRN ×5 (02:06→21:36)
[2016-09-10 02:07] VITALS: BP 229/109; PULSE 86
[2016-09-10] MEDS: hydrALAzine 20 MG INJ IV PRN ×4 (02:07→21:40)
[2016-09-10 03:10] VITALS: BP 165/84; PULSE 94
[2016-09-10 04:30] VITALS: BP 164/78; PULSE 89
[2016-09-10] MEDS: LORAZEPAM 2 MG INJ IV PRN ×2 (04:34→14:15)
[2016-09-10 08:00] VITALS: BP 152/72; PULSE 94; RESP 18
--- NOTE | 2016-09-10 08:26 | PN ---
Date/Time of Note Date/Time of Note DATE: 09/10/16 TIME: 08:23 Assessment/Plan VTE Prophylaxis VTE Prophylaxis Intervention: SCD's Lines/Catheters IV Catheter Type (from Nrs): Peripheral IV Urinary Cath still in place: No Assessment/Plan Assessment/Plan 66-year-old male coming in with left-sided weakness and facial droop with signs of positive stroke on the head CT. 1. CVA w/ left weakness - MRI of the brain shows: Acute non hemorrhagic left basal ganglia and right neural white matter infarcts. ECHO from 08/24 showed: Conclusions - EF 60%, stage I diastolic dysfunction , LVH - continue high-dose aspirin/plavix - neuro checks every 4 hours as well, statin - f/u neurology consult rec's, tx bp - f/u PT, OT and speech therapy rec's - St re-eval in AM (Today) given throat pain and difficulty swallowing pills 2. Diabetes type II -sliding scale insulin and his home insulins, a1c 11.9 - diabetic education 3. Hypertension essential - continue hydralazine IV prn > 160, continue home bp meds PO meds as tolerated 4. Depressed mood - will start celexa 20 mg po daily, once cleared by speech 5. Peripheral vascular disease. Continue aspirin, Plavix for now. 6. Gastrointestinal prophylaxis. H2 mariano. 7. Deep venous thrombosis prophylaxis. SCD's dispo- f/u recs, PT, speech repeat eval, as per clinical course - needs SNF/ Rehab - transfer to [facility] if they have one this progress note took greater than 30 minutes to complete Subjective 24 Hr Interval Summary Free Text/Dictation Patient had no overnight events. He does complain of abdominal pain, left arm and left leg pain. He underwent physical therapy yesterday. Was able to eat some of his meals. Otherwise spoke to him about the care plan. 10 minutes spent. Exam/Review of Systems Vital Signs Vitals Vital Signs Date Time Temp Pulse Resp B/P Pulse Ox O2 Delivery O2 Flow Rate FiO2 09/10/16 04:30 89 164/78 09/09/16 20:00 97.6 18 98 Room Air 09/09/16 17:11 2.0 Intake and Output 09/09/16 09/09/16 09/10/16 15:00 23:00 07:00 Intake Total 915 ml Balance 915 ml Exam Gen Elpidio: NAD, AAOx4 HEENT: left facial droop, PERRLA, EOMI, no carotid bruits present NECK: supple, no thyromegaly THORAX: symmetrical, no obvious deformities CV: S1S2, RRR, no M/G/R Lungs: CTAB no W/C/R/R Abd: soft, NT/ND, +BS, no rebound, no guarding, neg HSM EXT: left upper and lower extremity with flaccid paralysis, right with normal ROM, no edema, onychomycosis present Neuro: CN II-IV, , VIII-XII grossly intact, V, VII abnormal, l;eft sided flaccid paralysis Psych: depressed mood and affect Skin: C/D/I Results Result Diagram: 09/09/1671409/09/1615 Results 24 hrs Laboratory Tests Test 09/09/16 11:27 09/09/16 17:01 09/09/16 21:16 09/10/16 01:59 Bedside Glucose 126 224 H 234 H 152 Test 09/10/16 07:42 Bedside Glucose 177 Medications Medications Current Medications Acetaminophen (Tylenol Tab) 650 mg Q6H PRN PO PAIN LEVEL 1-3 OR FEVER; Start 09/02/16 at 17:00 Acetaminophen/ Hydrocodone Bitart ([place] (5/325)) 1 tab Q6H PRN PO MODERATE PAIN LEVEL 4-6; Start 09/02/16 at 17:00 Morphine Sulfate (morphine) 2 mg Q4H PRN IV SEVERE PAIN LEVEL 7-10 Last administered on 09/10/16at 06:41; Admin Dose 2 MG; Start 09/02/16 at 17:00 Docusate Sodium (Colace) 100 mg Q12H PRN PO CONSTIPATION; Start 09/02/16 at 17 :00 Sodium Biphosphate/ Sodium Phosphate (Fleet Enema) 133 ml DAILY PRN [place] CONSTIPATION; Start 09/02/16 at 17:00 Famotidine (Pepcid Iv) 20 mg Q12 IV Last administered on 09/09/16at 21:19; Admin Dose 20 MG; Start 09/02/16 at 21:00 Ondansetron HCl (Zofran Inj) 4 mg Q6H PRN IV NAUSEA AND/OR VOMITING; Start at 17:00 Lorazepam (Ativan) 0.5 mg Q6H PRN IV ANXIETY Last administered on 09/10/16at 04 :34; Admin Dose 0.5 MG; Start 09/02/16 at 17:00 Nitroglycerin (Nitroglycerin (Sl Tab) 0.4 Mg) 1 tab Q5M PRN SL ANGINA; Start 09/02/16 at 17:00 Aspirin (Ecotrin) 325 mg DAILY PO Last administered on 09/07/16at 08:53; Admin Dose 325 MG; Start 09/03/16 at 09:00 Clopidogrel Bisulfate (plaVIX) 75 mg DAILY PO Last administered on 09/07/16at 08:53; Admin Dose 75 MG; Start 09/03/16 at 09:00 Enoxaparin Sodium (Lovenox) 40 mg DAILY SC ; Start 09/03/16 at 09:00; Status Future Hold Gemfibrozil (Lopid) 600 mg BID PO Last administered on 09/07/16at 21:11; Admin Dose 600 MG; Start 09/02/16 at 21:00 Magnesium Hydroxide (Milk Of Mag) 30 ml DAILY PRN PO CONSTIPATION; Start 09/02 at 17:00 Atorvastatin Calcium (Lipitor) 80 mg HS PO Last administered on 09/07/16at 21: 11; Admin Dose 80 MG; Start 09/02/16 at 21:00 Miscellaneous Information 1 ea NOTE XX ; Start 09/02/16 at 18:00 Glucose (Glutose) 15 gm Q15M PRN PO DECREASED GLUCOSE; Start 09/02/16 at 18:00 Glucose (Glutose) 22.5 gm Q15M PRN PO DECREASED GLUCOSE; Start 09/02/16 at 18: 00 Dextrose (D50w Syringe) 25 ml Q15M PRN IV DECREASED GLUCOSE; Start 09/02/16 at 18:00 Dextrose (D50w Syringe) 50 ml Q15M PRN IV DECREASED GLUCOSE; Start 09/02/16 at 18:00 Glucagon (Glucagen) 1 mg Q15M PRN IM DECREASED GLUCOSE; Start 09/02/16 at 18: 00 Glucose (Glutose) 15 gm Q15M PRN BUCCAL DECREASED GLUCOSE; Start 09/02/16 at 18:00 Hydralazine HCl (Apresoline) 10 mg Q4H PRN IV ELEVATED BLOOD PRESSURE Last administered on 09/10/16at 06:42; Admin Dose 10 MG; Start 09/05/16 at 15:00 Amlodipine Besylate (Norvasc) 5 mg BID PO Last administered on 09/07/16at 21:11 ; Admin Dose 5 MG; Start 09/06/16 at 11:30 Carvedilol (Coreg) 12.5 mg BID PO Last administered on 09/07/16 21:11; Admin Dose 12.5 MG; Start 09/06/16 at 11:30 Lisinopril 40 mg 40 mg DAILY PO Last administered on 09/07/16 08:53; Admin Dose 40 MG; Start 09/06/16 at 11:30 Dextrose/Sodium Chloride (D5-NS) 1,000 ml @ 75 mls/hr [id number] IV Last administered on 09/09/16 20:24; Admin Dose 75 MLS/HR; Start 09/07/16 at 02:00 Insulin Glargine (Lantus) 40 unit HS SC Last administered on 09/09/16at 21:27; Admin Dose 40 UNIT; Start 09/07/16 at 21:00 Hydralazine HCl (Apresoline) 10 mg Q8 PO Last administered on 09/09/16 11:21 ; Admin Dose 10 MG; Start 09/09/16 at 09:00 Citalopram Hydrobromide (Celexa) 20 mg DAILY PO ; Start 09/10/16 at 09:00 CHRISSIE LOMAX MD Sep 10, 2016 08:26
[2016-09-10] MEDS: AMLODIPINE 5 MG TAB PO SCH ×2 (09:00→21:00)
[2016-09-10] MEDS: ASPIRIN (EC) 325 MG TAB PO SCH (09:00)
[2016-09-10] MEDS: LISINOPRIL 20 MG TAB PO SCH (09:00)
[2016-09-10] MEDS: CITALOPRAM 20 MG TAB PO SCH (09:00)
[2016-09-10] MEDS: GEMFIBROZIL 600 MG TAB PO SCH ×2 (09:00→21:00)
[2016-09-10] MEDS: CLOPIDOGREL 75 MG TAB PO SCH (09:00)
[2016-09-10] MEDS: FAMOTIDINE 20 MG INJ IV SCH ×2 (09:06→21:36)
[2016-09-10 09:13] LABS: BASOPHILS % 0.4 % (0.0-2.0); EOSINOPHILS # 0.1 10^3/ul (0.0-0.5); EOSINOPHILS % 1.4 % (0.0-7.0); HEMATOCRIT 38.7 % (42.0-52.0); HEMOGLOBIN 12.9 g/dl (14.0-18.0); LYMPHOCYTES # 1.8 10^3/ul (0.8-2.9); LYMPHOCYTES % 23.2 % (15.0-51.0); MEAN CORPUSCULAR HEMOGLOBIN 27.8 pg (29.0-33.0); MEAN CORPUSCULAR HGB CONC 33.4 g/dl (32.0-37.0); MEAN CORPUSCULAR VOLUME 83.2 fl (82.0-101.0); MONOCYTE # 0.7 10^3/ul (0.3-0.9); MONOCYTES % 8.7 % (0.0-11.0); NEUTROPHIL # 5.2 10^3/ul (1.6-7.5); NEUTROPHILS % 66.3 % (39.0-77.0); PLATELET COUNT 269 10^3/UL (140-440); RED BLOOD COUNT 4.65 10^6/ul (4.70-6.10); RED CELL DISTRIBUTION WIDTH 12.6 % (11.5-14.5); UNCORRECTED WBC 7.8 10^3/ul (4.8-10.8); WHITE BLOOD COUNT 7.8 10^3/ul (4.8-10.8)
[2016-09-10 09:23] LABS: POTASSIUM 3.7 mmol/L (3.5-5.1)
[2016-09-10 09:26] LABS: CREATININE 0.6 mg/dl (0.61-1.24)
[2016-09-10 09:28] LABS: CONDITION 1
[2016-09-10] MEDS: INSULIN ASPART [NOVOLOG] 3 ML PEN SC SCH ×7 (09:53→21:47)
[2016-09-10] MEDS: DEXTROSE 5%-0.9% NACL 1,000 ML IV SCH ×2 (10:12→23:20)
[2016-09-10] MEDS: ATORVASTATIN 80 MG TAB PO SCH (21:00)
[2016-09-10 21:40] VITALS: BP 201/98; PULSE 109; RESP 20
[2016-09-10] MEDS: INSULIN GLARGINE [LANtus] 3 ML PEN SC SCH (21:46)
[2016-09-10 23:30] VITALS: BP 174/93; PULSE 104
[2016-09-11] MEDS: morphine 2 MG INJ IV PRN ×3 (02:03→22:20)
[2016-09-11 02:06] VITALS: BP 160/98
[2016-09-11] MEDS: DEXTROSE 5%-0.9% NACL 1,000 ML IV SCH ×3 (04:34→21:13)
[2016-09-11] MEDS: hydrALAzine 20 MG INJ IV PRN ×2 (06:13→21:12)
[2016-09-11 07:30] VITALS: BP 135/63; PULSE 99; RESP 18
--- NOTE | 2016-09-11 08:37 | PN ---
Date/Time of Note Date/Time of Note DATE: 09/11/16 TIME: 08:32 Assessment/Plan VTE Prophylaxis VTE Prophylaxis Intervention: SCD's Lines/Catheters IV Catheter Type (from Nrs): Peripheral IV Urinary Cath still in place: No Assessment/Plan Assessment/Plan 66-year-old male coming in with left-sided weakness and facial droop with signs of positive stroke on the head CT. 1. CVA w/ left weakness - MRI of the brain shows: Acute non hemorrhagic left basal ganglia and right neural white matter infarcts. ECHO from 08/24 showed: Conclusions - EF 60%, stage I diastolic dysfunction , LVH - continue high-dose aspirin/plavix - neuro checks every 4 hours as well, statin - f/u neurology consult rec's, tx bp - f/u PT, OT and speech therapy rec's - St re-eval in AM (Today) given throat pain and difficulty swallowing pills - repeat speech eval 2. Diabetes type II -sliding scale insulin and his home insulins, a1c 11.9 - diabetic education 3. Hypertension essential - continue hydralazine IV prn > 160, continue home meds 4. Depressed mood - will start celexa 20 mg po daily, once cleared by speech 5. Peripheral vascular disease. Continue aspirin, Plavix for now. 6. Gastrointestinal prophylaxis. H2 mariano. 7. Deep venous thrombosis prophylaxis. SCD's dispo- f/u recs, PT, speech repeat eval, as per clinical course - needs SNF/ Rehab - transfer to [facility] if they have one this progress note took greater than 20 minutes to complete Subjective 24 Hr Interval Summary Free Text/Dictation Patient had no overnight events. Spoke to the patient about taking his medications as prescribed. He complains that he can't swallow pills cause it gets "stuck" or hurts him. Otherwise spoke to him about the care plan. 10 minutes spent. Exam/Review of Systems Vital Signs Vitals Vital Signs Date Time Temp Pulse Resp B/P Pulse Ox O2 Delivery O2 Flow Rate FiO2 09/11/16 07:30 98.0 99 18 135/63 97 Room Air 09/10/16 20:32 2.0 28 Intake and Output 09/10/16 09/10/16 09/11/16 15:00 23:00 07:00 Intake Total 250 ml 1350 ml 1155 ml Output Total 2400 ml 1300 ml Balance 250 ml -1050 ml -145 ml Exam Gen Elpidio: NAD, AAOx4 HEENT: left facial droop, PERRLA, EOMI, no carotid bruits present NECK: supple, no thyromegaly THORAX: symmetrical, no obvious deformities CV: S1S2, RRR, no M/G/R Lungs: CTAB no W/C/R/R Abd: soft, NT/ND, +BS, no rebound, no guarding, neg HSM EXT: left upper and lower extremity with flaccid paralysis, right with normal ROM, no edema, onychomycosis present Neuro: CN II-IV, , VIII-XII grossly intact, V, VII abnormal, left sided flaccid paralysis Psych: depressed mood and affect Skin: C/D/I Results Result Diagram: 09/10/16 0850 09/10/16 0850 Results 24 hrs Laboratory Tests Test 09/10/16 08:50 09/10/16 11:49 09/10/16 16:46 09/10/16 21:35 Anion Gap 15 Basophils # 0.0 Basophils % 0.4 Blood Morphology Comment Blood Urea Nitrogen 5 L Calcium Level 9.0 Carbon Dioxide Level 29 Chloride Level 102 Creatinine 0.60 L Eosinophils # 0.1 Eosinophils % 1.4 Glucose Level 138 Hematocrit 38.7 L Hemoglobin 12.9 L Lymphocytes # 1.8 Lymphocytes % 23.2 Mean Corpuscular Hemoglobin 27.8 L Mean Corpuscular Hemoglobin Concent 33.4 Mean Corpuscular Volume 83.2 Mean Platelet Volume 10.0 Monocytes # 0.7 Monocytes % 8.7 Neutrophils # 5.2 Neutrophils % 66.3 Nucleated Red Blood Cells # 0.0 Nucleated Red Blood Cells % 0.0 Platelet Count 269 Potassium Level 3.7 Red Blood Count 4.65 L Red Cell Distribution Width 12.6 Sodium Level 142 White Blood Count 7.8 Bedside Glucose 228 H 173 279 H Test 09/11/16 02:02 Bedside Glucose 140 Medications Medications Current Medications Acetaminophen (Tylenol Tab) 650 mg Q6H PRN PO PAIN LEVEL 1-3 OR FEVER; Start 09/02/16 at 17:00 Acetaminophen/ Hydrocodone Bitart ([place] (5/325)) 1 tab Q6H PRN PO MODERATE PAIN LEVEL 4-6; Start 09/02/16 at 17:00 Morphine Sulfate (morphine) 2 mg Q4H PRN IV SEVERE PAIN LEVEL 7-10 Last administered on 09/11/16at 06:12; Admin Dose 2 MG; Start 09/02/16 at 17:00 Docusate Sodium (Colace) 100 mg Q12H PRN PO CONSTIPATION; Start 09/02/16 at 17 :00 Sodium Biphosphate/ Sodium Phosphate (Fleet Enema) 133 ml DAILY PRN [place] CONSTIPATION; Start 09/02/16 at 17:00 Famotidine (Pepcid Iv) 20 mg Q12 IV Last administered on 09/10/16at 21:36; Admin Dose 20 MG; Start 09/02/16 at 21:00 Ondansetron HCl (Zofran Inj) 4 mg Q6H PRN IV NAUSEA AND/OR VOMITING; Start at 17:00 Lorazepam (Ativan) 0.5 mg Q6H PRN IV ANXIETY Last administered on 09/10/16at 14 :15; Admin Dose 0.5 MG; Start 09/02/16 at 17:00 Nitroglycerin (Nitroglycerin (Sl Tab) 0.4 Mg) 1 tab Q5M PRN SL ANGINA; Start 09/02/16 at 17:00 Aspirin (Ecotrin) 325 mg DAILY PO Last administered on 09/07/16at 08:53; Admin Dose 325 MG; Start 09/03/16 at 09:00 Clopidogrel Bisulfate (plaVIX) 75 mg DAILY PO Last administered on 09/07/16at 08:53; Admin Dose 75 MG; Start 09/03/16 at 09:00 Enoxaparin Sodium (Lovenox) 40 mg DAILY SC ; Start 09/03/16 at 09:00; Status Future Hold Gemfibrozil (Lopid) 600 mg BID PO Last administered on 09/07/16at 21:11; Admin Dose 600 MG; Start 09/02/16 at 21:00 Magnesium Hydroxide (Milk Of Mag) 30 ml DAILY PRN PO CONSTIPATION; Start 09/02 at 17:00 Atorvastatin Calcium (Lipitor) 80 mg HS PO Last administered on 09/07/16at 21: 11; Admin Dose 80 MG; Start 09/02/16 at 21:00 Miscellaneous Information 1 ea NOTE XX ; Start 09/02/16 at 18:00 Glucose (Glutose) 15 gm Q15M PRN PO DECREASED GLUCOSE; Start 09/02/16 at 18:00 Glucose (Glutose) 22.5 gm Q15M PRN PO DECREASED GLUCOSE; Start 09/02/16 at 18: 00 Dextrose (D50w Syringe) 25 ml Q15M PRN IV DECREASED GLUCOSE; Start 09/02/16 at 18:00 Dextrose (D50w Syringe) 50 ml Q15M PRN IV DECREASED GLUCOSE; Start 09/02/16 at 18:00 Glucagon (Glucagen) 1 mg Q15M PRN IM DECREASED GLUCOSE; Start 09/02/16 at 18: 00 Glucose (Glutose) 15 gm Q15M PRN BUCCAL DECREASED GLUCOSE; Start 09/02/16 at 18:00 Hydralazine HCl (Apresoline) 10 mg Q4H PRN IV ELEVATED BLOOD PRESSURE Last administered on 09/11/16at 06:13; Admin Dose 10 MG; Start 09/05/16 at 15:00 Amlodipine Besylate (Norvasc) 5 mg BID PO Last administered on 09/07/16at 21:11 ; Admin Dose 5 MG; Start 09/06/16 at 11:30 Carvedilol (Coreg) 12.5 mg BID PO Last administered on 09/07/16at 21:11; Admin Dose 12.5 MG; Start 09/06/16 at 11:30 Lisinopril 40 mg 40 mg DAILY PO Last administered on 09/07/16at 08:53; Admin Dose 40 MG; Start 09/06/16 at 11:30 Dextrose/Sodium Chloride (D5-NS) 1,000 ml @ 75 mls/hr [id number] IV Last administered on 09/11/16at 04:34; Admin Dose 75 MLS/HR; Start 09/07/16 at 02:00 Insulin Glargine (Lantus) 40 unit HS SC Last administered on 09/10/16at 21:46; Admin Dose 40 UNIT; Start 09/07/16 at 21:00 Hydralazine HCl (Apresoline) 10 mg Q8 PO Last administered on 09/09/16 11:21 ; Admin Dose 10 MG; Start 09/09/16 at 09:00 Citalopram Hydrobromide (Celexa) 20 mg DAILY PO ; Start 09/10/16 at 09:00 CHRISSIE LOMAX MD Sep 11, 2016 08:37
[2016-09-11] MEDS: FAMOTIDINE 20 MG INJ IV SCH ×2 (08:40→20:48)
[2016-09-11] MEDS: INSULIN ASPART [NOVOLOG] 3 ML PEN SC SCH ×7 (08:54→21:00)
[2016-09-11] MEDS: AMLODIPINE 5 MG TAB PO SCH ×3 (09:00→20:58)
[2016-09-11] MEDS: CLOPIDOGREL 75 MG TAB PO SCH (09:00)
[2016-09-11] MEDS: CITALOPRAM 20 MG TAB PO SCH (09:00)
[2016-09-11] MEDS: ASPIRIN (EC) 325 MG TAB PO SCH (09:00)
[2016-09-11] MEDS: LISINOPRIL 20 MG TAB PO SCH (09:00)
[2016-09-11] MEDS: GEMFIBROZIL 600 MG TAB PO SCH ×3 (09:00→20:58)
[2016-09-11] MEDS ORDERED: BARIUM SULFATE 135 ML (E-Z HD) PO ONE (14:45)
--- NOTE | 2016-09-11 17:36 | RADRPT ---
PROCEDURE: Video-fluoroscopy swallowing study. CLINICAL INDICATION: Dysphagia. TECHNIQUE: Fluoroscopic guided video swallowing study was done in conjunction with the speech ther apist. The study was confined to the oral, pharyngeal, and cervical phases of the swallowing mechani sm. 2.4 minutes of fluoroscopy time was used. COMPARISON: No prior study is available for comparison. FINDINGS: There is evidence of aspiration during the exam. IMPRESSION: 1. Aspiration during swallowing. 2. Please refer to the speech therapist's recommendations for future feedings. RPTAT: QQ .Dao Fabian MD, MD Date Time Electronically viewed and signed by .Dao Fabian MD, on 09/11/2016 17:35 .R/
[2016-09-11 20:00] VITALS: BP 161/80; PULSE 88; RESP 20
[2016-09-11] MEDS: ATORVASTATIN 80 MG TAB PO SCH ×2 (20:44→20:58)
[2016-09-11] MEDS: INSULIN GLARGINE [LANtus] 3 ML PEN SC SCH (21:19)
[2016-09-11 23:00] VITALS: BP 158/72; PULSE 72
[2016-09-12] MEDS: morphine 2 MG INJ IV PRN ×4 (01:11→17:00)
[2016-09-12 05:44] LABS: POTASSIUM 3.7 mmol/L (3.5-5.1)
[2016-09-12 05:46] LABS: CREATININE 0.62 mg/dl (0.61-1.24)
[2016-09-12 06:51] VITALS: BP 178/85
[2016-09-12] MEDS: hydrALAzine 20 MG INJ IV PRN ×2 (06:51→21:53)
[2016-09-12 07:05] LABS: BASOPHILS % 0.5 % (0.0-2.0); EOSINOPHILS # 0.2 10^3/ul (0.0-0.5); EOSINOPHILS % 2.2 % (0.0-7.0); HEMATOCRIT 36.6 % (42.0-52.0); HEMOGLOBIN 12.2 g/dl (14.0-18.0); LYMPHOCYTES # 2.3 10^3/ul (0.8-2.9); MEAN CORPUSCULAR HEMOGLOBIN 27.8 pg (29.0-33.0); MEAN CORPUSCULAR HGB CONC 33.2 g/dl (32.0-37.0); MEAN CORPUSCULAR VOLUME 83.8 fl (82.0-101.0); MEAN PLATELET VOLUME 10.4 fl (7.4-10.4); MONOCYTE # 0.7 10^3/ul (0.3-0.9); MONOCYTES % 9.5 % (0.0-11.0); NEUTROPHIL # 4.3 10^3/ul (1.6-7.5); NEUTROPHILS % 57.8 % (39.0-77.0); PLATELET COUNT 264 10^3/UL (140-440); RED BLOOD COUNT 4.37 10^6/ul (4.70-6.10); UNCORRECTED WBC 7.5 10^3/ul (4.8-10.8); WHITE BLOOD COUNT 7.5 10^3/ul (4.8-10.8)
[2016-09-12 07:06] LABS: CONDITION 1
[2016-09-12 07:15] VITALS: BP 158/82; PULSE 75
[2016-09-12 08:00] VITALS: BP 136/74; PULSE 87; RESP 18
[2016-09-12] MEDS: INSULIN ASPART [NOVOLOG] 3 ML PEN SC SCH ×7 (08:00→21:56)
[2016-09-12] MEDS: FAMOTIDINE 20 MG INJ IV SCH ×2 (08:22→21:48)
[2016-09-12] MEDS: CITALOPRAM 20 MG TAB PO SCH (08:30)
[2016-09-12] MEDS: GEMFIBROZIL 600 MG TAB PO SCH ×2 (08:30→21:00)
[2016-09-12] MEDS: ASPIRIN (EC) 325 MG TAB PO SCH (08:30)
[2016-09-12] MEDS: CLOPIDOGREL 75 MG TAB PO SCH (08:31)
[2016-09-12] MEDS: AMLODIPINE 5 MG TAB PO SCH ×2 (08:32→21:00)
[2016-09-12] MEDS: LISINOPRIL 20 MG TAB PO SCH (08:32)
--- NOTE | 2016-09-12 08:48 | PN ---
Date/Time of Note Date/Time of Note DATE: 09/12/16 TIME: 08:45 Assessment/Plan VTE Prophylaxis VTE Prophylaxis Intervention: SCD's Lines/Catheters IV Catheter Type (from Nrs): Peripheral IV Urinary Cath still in place: No Assessment/Plan Assessment/Plan 66-year-old male coming in with left-sided weakness and facial droop with signs of positive stroke on the head CT. 1. CVA w/ left weakness - MRI of the brain shows: Acute non hemorrhagic left basal ganglia and right neural white matter infarcts. ECHO from 08/24 showed: Conclusions - EF 60%, stage I diastolic dysfunction , LVH - continue high-dose aspirin/plavix - neuro checks every 4 hours as well, statin - f/u neurology consult rec's, tx bp - f/u PT, OT and speech therapy rec's - St re-eval in AM (Today) given throat pain and difficulty swallowing pills - repeat speech eval prn - needs medications with food 2. Diabetes type II -sliding scale insulin and his home insulins, a1c 11.9 - diabetic education 3. Hypertension essential - continue hydralazine IV prn > 160, continue home meds 4. Depressed mood - will start celexa 20 mg po daily, once cleared by speech 5. Peripheral vascular disease. Continue aspirin, Plavix for now. 6. Gastrointestinal prophylaxis. H2 mariano. 7. Deep venous thrombosis prophylaxis. SCD's dispo- f/u recs, PT, speech treatment, as per clinical course - needs SNF/Rehab - [facility] this progress note took greater than 20 minutes to complete Subjective 24 Hr Interval Summary Free Text/Dictation Patient had a modified video swallow - having difficulty with solids and certain thickness levels of foods. Otherwise spoke to the patient and nurse about the care plan. 15 minutes spent. Exam/Review of Systems Vital Signs Vitals Vital Signs Date Time Temp Pulse Resp B/P Pulse Ox O2 Delivery O2 Flow Rate FiO2 09/12/16 07:15 75 158/82 09/11/16 20:00 98.6 20 94 Room Air 09/10/16 20:32 2.0 28 Intake and Output 09/11/16 09/11/16 09/12/16 15:00 23:00 07:00 Intake Total 1440 ml 1140 ml Output Total 400 ml 800 ml Balance 1040 ml 340 ml Exam Gen Elpidio: NAD, AAOx4, generalized malaise HEENT: left facial droop, PERRLA, EOMI, no carotid bruits present NECK: supple, no thyromegaly THORAX: symmetrical, no obvious deformities CV: S1S2, RRR, no M/G/R Lungs: CTAB no W/C/R/R Abd: soft, NT/ND, +BS, no rebound, no guarding, neg HSM EXT: left upper and lower extremity with flaccid paralysis, right with normal ROM, no edema, onychomycosis present Neuro: CN II-IV, , VIII-XII grossly intact, V, VII abnormal, left sided flaccid paralysis Psych: depressed mood and affect Skin: C/D/I Results Result Diagram: 09/12/1615 09/12/16 0520 Results 24 hrs Laboratory Tests Test 09/11/16 11:32 09/11/16 16:42 09/11/16 21:15 09/12/16 05:15 Bedside Glucose 199 105 176 Basophils # 0.0 Basophils % 0.5 Blood Morphology Comment Eosinophils # 0.2 Eosinophils % 2.2 Hematocrit 36.6 L Hemoglobin 12.2 L Lymphocytes # 2.3 Lymphocytes % 30.0 Mean Corpuscular Hemoglobin 27.8 L Mean Corpuscular Hemoglobin Concent 33.2 Mean Corpuscular Volume 83.8 Mean Platelet Volume 10.4 Monocytes # 0.7 Monocytes % 9.5 Neutrophils # 4.3 Neutrophils % 57.8 Nucleated Red Blood Cells # 0.0 Nucleated Red Blood Cells % 0.0 Platelet Count 264 Red Blood Count 4.37 L Red Cell Distribution Width 13.0 White Blood Count 7.5 Test 09/12/16 05:20 09/12/16 07:55 Anion Gap 14 Blood Urea Nitrogen 6 L Calcium Level 9.0 Carbon Dioxide Level 27 Chloride Level 105 Creatinine 0.62 Glucose Level 124 Potassium Level 3.7 Sodium Level 142 Bedside Glucose 130 Medications Medications Current Medications Acetaminophen (Tylenol Tab) 650 mg Q6H PRN PO PAIN LEVEL 1-3 OR FEVER; Start 09/02/16 at 17:00 Acetaminophen/ Hydrocodone Bitart ([place] (5/325)) 1 tab Q6H PRN PO MODERATE PAIN LEVEL 4-6; Start 09/02/16 at 17:00 Morphine Sulfate (morphine) 2 mg Q4H PRN IV SEVERE PAIN LEVEL 7-10 Last administered on 09/12/16at 05:37; Admin Dose 2 MG; Start 09/02/16 at 17:00 Docusate Sodium (Colace) 100 mg Q12H PRN PO CONSTIPATION; Start 09/02/16 at 17 :00 Sodium Biphosphate/ Sodium Phosphate (Fleet Enema) 133 ml DAILY PRN [place] CONSTIPATION; Start 09/02/16 at 17:00 Famotidine (Pepcid Iv) 20 mg Q12 IV Last administered on 09/11/16at 20:48; Admin Dose 20 MG; Start 09/02/16 at 21:00 Ondansetron HCl (Zofran Inj) 4 mg Q6H PRN IV NAUSEA AND/OR VOMITING; Start at 17:00 Lorazepam (Ativan) 0.5 mg Q6H PRN IV ANXIETY Last administered on 09/10/16at 14 :15; Admin Dose 0.5 MG; Start 09/02/16 at 17:00 Nitroglycerin (Nitroglycerin (Sl Tab) 0.4 Mg) 1 tab Q5M PRN SL ANGINA; Start 09/02/16 at 17:00 Aspirin (Ecotrin) 325 mg DAILY PO Last administered on 09/07/16at 08:53; Admin Dose 325 MG; Start 09/03/16 at 09:00 Clopidogrel Bisulfate (plaVIX) 75 mg DAILY PO Last administered on 09/07/16at 08:53; Admin Dose 75 MG; Start 09/03/16 at 09:00 Enoxaparin Sodium (Lovenox) 40 mg DAILY SC ; Start 09/03/16 at 09:00; Status Future Hold Gemfibrozil (Lopid) 600 mg BID PO Last administered on 09/07/16at 21:11; Admin Dose 600 MG; Start 09/02/16 at 21:00 Magnesium Hydroxide (Milk Of Mag) 30 ml DAILY PRN PO CONSTIPATION; Start 09/02 at 17:00 Atorvastatin Calcium (Lipitor) 80 mg HS PO Last administered on 09/07/16at 21: 11; Admin Dose 80 MG; Start 09/02/16 at 21:00 Miscellaneous Information 1 ea NOTE XX ; Start 09/02/16 at 18:00 Glucose (Glutose) 15 gm Q15M PRN PO DECREASED GLUCOSE; Start 09/02/16 at 18:00 Glucose (Glutose) 22.5 gm Q15M PRN PO DECREASED GLUCOSE; Start 09/02/16 at 18: 00 Dextrose (D50w Syringe) 25 ml Q15M PRN IV DECREASED GLUCOSE; Start 09/02/16 at 18:00 Dextrose (D50w Syringe) 50 ml Q15M PRN IV DECREASED GLUCOSE; Start 09/02/16 at 18:00 Glucagon (Glucagen) 1 mg Q15M PRN IM DECREASED GLUCOSE; Start 09/02/16 at 18: 00 Glucose (Glutose) 15 gm Q15M PRN BUCCAL DECREASED GLUCOSE; Start 09/02/16 at 18:00 Hydralazine HCl (Apresoline) 10 mg Q4H PRN IV ELEVATED BLOOD PRESSURE Last administered on 09/12/16 06:51; Admin Dose 10 MG; Start 09/05/16 at 15:00 Amlodipine Besylate (Norvasc) 5 mg BID PO Last administered on 09/07/16 21:11 ; Admin Dose 5 MG; Start 09/06/16 at 11:30 Carvedilol (Coreg) 12.5 mg BID PO Last administered on 09/07/16at 21:11; Admin Dose 12.5 MG; Start 09/06/16 at 11:30 Lisinopril 40 mg 40 mg DAILY PO Last administered on 09/07/16at 08:53; Admin Dose 40 MG; Start 09/06/16 at 11:30 Dextrose/Sodium Chloride (D5-NS) 1,000 ml @ 75 mls/hr [id number] IV Last administered on 09/11/16at 21:13; Admin Dose 75 MLS/HR; Start 09/07/16 at 02:00 Insulin Glargine (Lantus) 40 unit HS SC Last administered on 09/11/16at 21:19; Admin Dose 40 UNIT; Start 09/07/16 at 21:00 Hydralazine HCl (Apresoline) 10 mg Q8 PO Last administered on 09/12/16at 05:54 ; Admin Dose 10 MG; Start 09/09/16 at 09:00 Citalopram Hydrobromide (Celexa) 20 mg DAILY PO ; Start 09/10/16 at 09:00 CHRISSIE LOMAX MD Sep 12, 2016 08:48
[2016-09-12] MEDS: DEXTROSE 5%-0.9% NACL 1,000 ML IV SCH (11:20)
[2016-09-12 20:00] VITALS: BP 173/79; PULSE 73; RESP 16
[2016-09-12] MEDS: ATORVASTATIN 80 MG TAB PO SCH (21:00)
[2016-09-12] MEDS: INSULIN GLARGINE [LANtus] 3 ML PEN SC SCH (21:57)
[2016-09-13] MEDS: hydrALAzine 20 MG INJ IV PRN ×4 (05:07→20:50)
[2016-09-13] MEDS: morphine 2 MG INJ IV PRN ×4 (05:07→23:51)
[2016-09-13] MEDS: DEXTROSE 5%-0.9% NACL 1,000 ML IV SCH ×2 (05:12→18:55)
[2016-09-13] MEDS: INSULIN ASPART [NOVOLOG] 3 ML PEN SC SCH ×7 (07:59→20:29)
[2016-09-13 08:00] VITALS: BP 168/74; PULSE 73; RESP 18
--- NOTE | 2016-09-13 08:50 | PN ---
Date/Time of Note Date/Time of Note DATE: 09/13/16 TIME: 08:45 Assessment/Plan VTE Prophylaxis VTE Prophylaxis Intervention: SCD's Lines/Catheters IV Catheter Type (from Nrs): Peripheral IV Assessment/Plan Assessment/Plan 66-year-old male coming in with left-sided weakness and facial droop with signs of positive stroke on the head CT. 1. CVA w/ left weakness - MRI of the brain shows: Acute non hemorrhagic left basal ganglia and right neural white matter infarcts. ECHO from 08/24 showed: Conclusions - EF 60%, stage I diastolic dysfunction , LVH - continue high-dose aspirin/plavix - neuro checks every 4 hours as well, statin - f/u neurology consult rec's, tx bp - f/u PT, OT and speech therapy rec's - St re-eval in AM (Today) given throat pain and difficulty swallowing pills - repeat speech eval prn - needs medications with food, re-evaluate speech eval 2. Diabetes type II -sliding scale insulin and his home insulins, a1c 11.9 - diabetic education 3. Hypertension essential - continue hydralazine IV prn > 160, continue home meds 4. Depressed mood - will start celexa 20 mg po daily, once cleared by speech 5. Peripheral vascular disease. Continue aspirin, Plavix for now. 6. Gastrointestinal prophylaxis. H2 mariano. 7. Deep venous thrombosis prophylaxis. SCD's dispo- f/u recs, PT, speech treatment, as per clinical course - needs SNF/Rehab - [facility] this progress note took greater than 20 minutes to complete Subjective 24 Hr Interval Summary Free Text/Dictation Patient is hungry, but because of his swallowing difficulties, he understood only certain food can be given. spoke to the nurse about the care plan. 15 minutes spent. Exam/Review of Systems Vital Signs Vitals Vital Signs Date Time Temp Pulse Resp B/P Pulse Ox O2 Delivery O2 Flow Rate FiO2 09/12/16 20:00 98.8 73 16 173/79 96 Room Air 09/10/16 20:32 2.0 28 Intake and Output 09/12/16 09/12/16 09/13/16 15:00 23:00 07:00 Intake Total 100 ml 1125 ml 1355 ml Output Total 600 ml 1200 ml Balance 100 ml 525 ml 155 ml Exam Gen Elpidio: NAD, AAOx4, generalized malaise HEENT: left facial droop, PERRLA, EOMI, no carotid bruits present NECK: supple, no thyromegaly THORAX: symmetrical, no obvious deformities CV: S1S2, RRR, no M/G/R Lungs: CTAB no W/C/R/R Abd: soft, NT/ND, +BS, no rebound, no guarding, neg HSM EXT: left upper and lower extremity with flaccid paralysis, right with normal ROM, no edema, onychomycosis present Neuro: CN II-IV, , VIII-XII grossly intact, V, VII abnormal, left sided flaccid paralysis Psych: fair mood and affect Skin: C/D/I Results Result Diagram: 09/12/1615 09/12/16 05 Results 24 hrs Laboratory Tests Test 09/12/16 11:44 09/12/16 16:50 09/12/16 21:45 09/13/16 02:50 Bedside Glucose 210 153 168 178 Test 09/13/16 07:52 Bedside Glucose 168 Medications Medications Current Medications Acetaminophen (Tylenol Tab) 650 mg Q6H PRN PO PAIN LEVEL 1-3 OR FEVER; Start 09/02/16 at 17:00 Acetaminophen/ Hydrocodone Bitart ([place] (5/325)) 1 tab Q6H PRN PO MODERATE PAIN LEVEL 4-6; Start 09/02/16 at 17:00 Morphine Sulfate (morphine) 2 mg Q4H PRN IV SEVERE PAIN LEVEL 7-10 Last administered on 09/13/16at 05:07; Admin Dose 2 MG; Start 09/02/16 at 17:00 Docusate Sodium (Colace) 100 mg Q12H PRN PO CONSTIPATION; Start 09/02/16 at 17 :00 Sodium Biphosphate/ Sodium Phosphate (Fleet Enema) 133 ml DAILY PRN [place] CONSTIPATION Last administered on 09/13/16at 00:31; Admin Dose 133 ML; Start at 17:00 Famotidine (Pepcid Iv) 20 mg Q12 IV Last administered on 09/12/16at 21:48; Admin Dose 20 MG; Start 09/02/16 at 21:00 Ondansetron HCl (Zofran Inj) 4 mg Q6H PRN IV NAUSEA AND/OR VOMITING; Start at 17:00 Lorazepam (Ativan) 0.5 mg Q6H PRN IV ANXIETY Last administered on 09/10/16at 14 :15; Admin Dose 0.5 MG; Start 09/02/16 at 17:00 Nitroglycerin (Nitroglycerin (Sl Tab) 0.4 Mg) 1 tab Q5M PRN SL ANGINA; Start 09/02/16 at 17:00 Aspirin (Ecotrin) 325 mg DAILY PO Last administered on 09/12/16at 08:30; Admin Dose 325 MG; Start 09/03/16 at 09:00 Clopidogrel Bisulfate (plaVIX) 75 mg DAILY PO Last administered on 09/12/16at 08:31; Admin Dose 75 MG; Start 09/03/16 at 09:00 Enoxaparin Sodium (Lovenox) 40 mg DAILY SC ; Start 09/03/16 at 09:00; Status Future Hold Gemfibrozil (Lopid) 600 mg BID PO Last administered on 09/12/16at 08:30; Admin Dose 600 MG; Start 09/02/16 at 21:00 Magnesium Hydroxide (Milk Of Mag) 30 ml DAILY PRN PO CONSTIPATION; Start 09/02 at 17:00 Atorvastatin Calcium (Lipitor) 80 mg HS PO Last administered on 09/07/16at 21: 11; Admin Dose 80 MG; Start 09/02/16 at 21:00 Miscellaneous Information 1 ea NOTE XX ; Start 09/02/16 at 18:00 Glucose (Glutose) 15 gm Q15M PRN PO DECREASED GLUCOSE; Start 09/02/16 at 18:00 Glucose (Glutose) 22.5 gm Q15M PRN PO DECREASED GLUCOSE; Start 09/02/16 at 18: 00 Dextrose (D50w Syringe) 25 ml Q15M PRN IV DECREASED GLUCOSE; Start 09/02/16 at 18:00 Dextrose (D50w Syringe) 50 ml Q15M PRN IV DECREASED GLUCOSE; Start 09/02/16 at 18:00 Glucagon (Glucagen) 1 mg Q15M PRN IM DECREASED GLUCOSE; Start 09/02/16 at 18: 00 Glucose (Glutose) 15 gm Q15M PRN BUCCAL DECREASED GLUCOSE; Start 09/02/16 at 18:00 Hydralazine HCl (Apresoline) 10 mg Q4H PRN IV ELEVATED BLOOD PRESSURE Last administered on 09/13/16 05:07; Admin Dose 10 MG; Start 09/05/16 at 15:00 Amlodipine Besylate (Norvasc) 5 mg BID PO Last administered on 09/12/16 08:32 ; Admin Dose 5 MG; Start 09/06/16 at 11:30 Carvedilol (Coreg) 12.5 mg BID PO Last administered on 09/12/16 08:31; Admin Dose 12.5 MG; Start 09/06/16 at 11:30 Lisinopril 40 mg 40 mg DAILY PO Last administered on 09/12/16 08:32; Admin Dose 40 MG; Start 09/06/16 at 11:30 Dextrose/Sodium Chloride (D5-NS) 1,000 ml @ 75 mls/hr [id number] IV Last administered on 09/13/16 05:12; Admin Dose 75 MLS/HR; Start 09/07/16 at 02:00 Insulin Glargine (Lantus) 40 unit HS SC Last administered on 09/12/16 21:57; Admin Dose 40 UNIT; Start 09/07/16 at 21:00 Hydralazine HCl (Apresoline) 10 mg Q8 PO Last administered on 09/12/16 05:54 ; Admin Dose 10 MG; Start 09/09/16 at 09:00 Citalopram Hydrobromide (Celexa) 20 mg DAILY PO Last administered on 08:30; Admin Dose 20 MG; Start 09/10/16 at 09:00 CHRISSIE LOMAX MD Sep 13, 2016 08:50
[2016-09-13 09:00] VITALS: BP 142/74; PULSE 76
[2016-09-13] MEDS: AMLODIPINE 5 MG TAB PO SCH ×2 (09:00→20:23)
[2016-09-13] MEDS: CLOPIDOGREL 75 MG TAB PO SCH (09:00)
[2016-09-13] MEDS: LISINOPRIL 20 MG TAB PO SCH (09:00)
[2016-09-13] MEDS: CITALOPRAM 20 MG TAB PO SCH (09:00)
[2016-09-13] MEDS: GEMFIBROZIL 600 MG TAB PO SCH ×2 (09:00→20:19)
[2016-09-13] MEDS: ASPIRIN (EC) 325 MG TAB PO SCH (09:00)
[2016-09-13] MEDS: FAMOTIDINE 20 MG INJ IV SCH ×2 (09:47→20:23)
[2016-09-13 20:00] VITALS: BP 193/88; PULSE 84; RESP 20
[2016-09-13] MEDS: ATORVASTATIN 80 MG TAB PO SCH (20:19)
[2016-09-13] MEDS: INSULIN GLARGINE [LANtus] 3 ML PEN SC SCH (20:27)
[2016-09-13 22:00] VITALS: BP 156/88
[2016-09-14] MEDS: hydrALAzine 20 MG INJ IV PRN ×4 (04:25→20:36)
[2016-09-14] MEDS: morphine 2 MG INJ IV PRN ×3 (05:14→20:37)
[2016-09-14] MEDS: DEXTROSE 5%-0.9% NACL 1,000 ML IV SCH ×2 (06:59→20:33)
[2016-09-14 07:17] LABS: BASOPHILS % 0.4 % (0.0-2.0); CONDITION 1; EOSINOPHILS # 0.2 10^3/ul (0.0-0.5); EOSINOPHILS % 2.2 % (0.0-7.0); HEMATOCRIT 34.7 % (42.0-52.0); HEMOGLOBIN 11.4 g/dl (14.0-18.0); LYMPHOCYTES # 2.2 10^3/ul (0.8-2.9); LYMPHOCYTES % 29.1 % (15.0-51.0); MEAN CORPUSCULAR HEMOGLOBIN 27.6 pg (29.0-33.0); MEAN CORPUSCULAR VOLUME 83.8 fl (82.0-101.0); MEAN PLATELET VOLUME 10.3 fl (7.4-10.4); MONOCYTE # 0.8 10^3/ul (0.3-0.9); MONOCYTES % 10.5 % (0.0-11.0); NEUTROPHIL # 4.3 10^3/ul (1.6-7.5); NEUTROPHILS % 57.8 % (39.0-77.0); PLATELET COUNT 270 10^3/UL (140-440); RED BLOOD COUNT 4.14 10^6/ul (4.70-6.10); RED CELL DISTRIBUTION WIDTH 13.1 % (11.5-14.5); UNCORRECTED WBC 7.4 10^3/ul (4.8-10.8); WHITE BLOOD COUNT 7.4 10^3/ul (4.8-10.8)
[2016-09-14 07:30] VITALS: BP 187/84; RESP 16
[2016-09-14 07:35] LABS: ALBUMIN 3.3 g/dl (3.3-4.9)
[2016-09-14 07:36] LABS: POTASSIUM 3.7 mmol/L (3.5-5.1)
[2016-09-14 07:38] LABS: ALBUMIN/GLOBULIN RATIO 1.03; BILIRUBIN,INDIRECT 0.2 mg/dl (0-1.1); BILIRUBIN,TOTAL 0.2 mg/dl (0.2-1.3); CREATININE 0.61 mg/dl (0.61-1.24); TOTAL PROTEIN 6.5 g/dl (6.1-8.1)
[2016-09-14 07:39] LABS: CALCIUM 8.9 mg/dl (8.4-10.2)
[2016-09-14] MEDS: INSULIN ASPART [NOVOLOG] 3 ML PEN SC SCH ×7 (08:00→20:51)
--- NOTE | 2016-09-14 08:42 | PN ---
Date/Time of Note Date/Time of Note DATE: 09/14/16 TIME: 08:40 Assessment/Plan VTE Prophylaxis VTE Prophylaxis Intervention: SCD's VTE Contraindication Reason: refusal of treatment by patient Lines/Catheters IV Catheter Type (from Nrsg): Peripheral IV Assessment/Plan Assessment/Plan 66-year-old male coming in with left-sided weakness and facial droop with signs of positive stroke on the head CT. 1. CVA w/ left weakness - MRI of the brain shows: Acute non hemorrhagic left basal ganglia and right neural white matter infarcts. ECHO from 08/24 showed: Conclusions - EF 60%, stage I diastolic dysfunction , LVH - continue high-dose aspirin/plavix - statin - f/u neurology consult rec's, tx bp - f/u PT, OT and speech therapy rec's - St re-eval in AM (Today) given throat pain and difficulty swallowing pills - continue to work with speech therapy 2. Diabetes type II -sliding scale insulin and his home insulins, a1c 11.9 - diabetic education 3. Hypertension essential - continue hydralazine IV prn > 160, continue home meds 4. Depressed mood - will start celexa 20 mg po daily, once cleared by speech 5. Peripheral vascular disease. Continue aspirin, Plavix for now. 6. Gastrointestinal prophylaxis. H2 mariano. 7. Deep venous thrombosis prophylaxis. SCD's dispo- f/u recs, PT, speech treatment, as per clinical course - needs SNF/Rehab - [facility] this progress note took greater than 20 minutes to complete Subjective 24 Hr Interval Summary Free Text/Dictation Patient is doing ok. Resting well. He has been refusing physical therapy. Otherwise spoke to the nurse about the care plan. 10 minutes spent. Exam/Review of Systems Vital Signs Vitals Vital Signs Date Time Temp Pulse Resp B/P Pulse Ox O2 Delivery O2 Flow Rate FiO2 09/14/16 07:30 98.7 16 187/84 95 Room Air 09/13/16 20:00 84 09/10/16 20:32 2.0 28 Intake and Output 09/13/16 09/13/16 09/14/16 15:00 23:00 07:00 Intake Total 2380 ml 1230 ml Output Total 1600 ml 1000 ml Balance 780 ml 230 ml Exam Gen Elpidio: NAD, AAOx4, generalized malaise HEENT: left facial droop, PERRLA, EOMI, no carotid bruits present NECK: supple, no thyromegaly THORAX: symmetrical, no obvious deformities CV: S1S2, RRR, no M/G/R Lungs: CTAB no W/C/R/R Abd: soft, NT/ND, +BS, no rebound, no guarding, neg HSM EXT: left upper and lower extremity with flaccid paralysis, right with normal ROM, no edema, onychomycosis present Neuro: CN II-IV, , VIII-XII grossly intact, V, VII abnormal, left sided flaccid paralysis Psych: fair mood and affect Skin: C/D/I Results Result Diagram: 09/14/1662909/14/16 0630 Results 24 hrs Laboratory Tests Test 09/13/16 11:59 09/13/16 17:01 09/13/16 20:12 09/14/16 06:30 Bedside Glucose 162 152 179 Alanine Aminotransferase (ALT/SGPT) 27 Albumin 3.3 Albumin/Globulin Ratio 1.03 Alkaline Phosphatase 100 Anion Gap 18 H Aspartate Amino Transf (AST/SGOT) 14 L Basophils # 0.0 Basophils % 0.4 Blood Morphology Comment Blood Urea Nitrogen 6 L Calcium Level 8.9 Carbon Dioxide Level 26 Chloride Level 103 Creatinine 0.61 Direct Bilirubin 0.00 Eosinophils # 0.2 Eosinophils % 2.2 Globulin 3.20 Glucose Level 128 Hematocrit 34.7 L Hemoglobin 11.4 L Indirect Bilirubin 0.2 Lymphocytes # 2.2 Lymphocytes % 29.1 Mean Corpuscular Hemoglobin 27.6 L Mean Corpuscular Hemoglobin Concent 33.0 Mean Corpuscular Volume 83.8 Mean Platelet Volume 10.3 Monocytes # 0.8 Monocytes % 10.5 Neutrophils # 4.3 Neutrophils % 57.8 Nucleated Red Blood Cells # 0.0 Nucleated Red Blood Cells % 0.0 Platelet Count 270 Potassium Level 3.7 Red Blood Count 4.14 L Red Cell Distribution Width 13.1 Sodium Level 143 Total Bilirubin 0.2 Total Protein 6.5 White Blood Count 7.4 Test 09/14/16 07:57 Bedside Glucose 120 Medications Medications Current Medications Acetaminophen (Tylenol Tab) 650 mg Q6H PRN PO PAIN LEVEL 1-3 OR FEVER; Start 09/02/16 at 17:00 Acetaminophen/ Hydrocodone Bitart ([place] (5/325)) 1 tab Q6H PRN PO MODERATE PAIN LEVEL 4-6; Start 09/02/16 at 17:00 Morphine Sulfate (morphine) 2 mg Q4H PRN IV SEVERE PAIN LEVEL 7-10 Last administered on 09/14/16at 05:14; Admin Dose 2 MG; Start 09/02/16 at 17:00 Docusate Sodium (Colace) 100 mg Q12H PRN PO CONSTIPATION; Start 09/02/16 at 17 :00 Sodium Biphosphate/ Sodium Phosphate (Fleet Enema) 133 ml DAILY PRN [place] CONSTIPATION Last administered on 09/13/16at 00:31; Admin Dose 133 ML; Start at 17:00 Famotidine (Pepcid Iv) 20 mg Q12 IV Last administered on 09/13/16at 20:23; Admin Dose 20 MG; Start 09/02/16 at 21:00 Ondansetron HCl (Zofran Inj) 4 mg Q6H PRN IV NAUSEA AND/OR VOMITING; Start at 17:00 Lorazepam (Ativan) 0.5 mg Q6H PRN IV ANXIETY Last administered on 09/10/16at 14 :15; Admin Dose 0.5 MG; Start 09/02/16 at 17:00 Nitroglycerin (Nitroglycerin (Sl Tab) 0.4 Mg) 1 tab Q5M PRN SL ANGINA; Start 09/02/16 at 17:00 Aspirin (Ecotrin) 325 mg DAILY PO Last administered on 09/12/16at 08:30; Admin Dose 325 MG; Start 09/03/16 at 09:00 Clopidogrel Bisulfate (plaVIX) 75 mg DAILY PO Last administered on 09/12/16at 08:31; Admin Dose 75 MG; Start 09/03/16 at 09:00 Enoxaparin Sodium (Lovenox) 40 mg DAILY SC ; Start 09/03/16 at 09:00; Status Future Hold Gemfibrozil (Lopid) 600 mg BID PO Last administered on 09/12/16at 08:30; Admin Dose 600 MG; Start 09/02/16 at 21:00 Magnesium Hydroxide (Milk Of Mag) 30 ml DAILY PRN PO CONSTIPATION; Start 09/02 at 17:00 Atorvastatin Calcium (Lipitor) 80 mg HS PO Last administered on 09/07/16at 21: 11; Admin Dose 80 MG; Start 09/02/16 at 21:00 Miscellaneous Information 1 ea NOTE XX ; Start 09/02/16 at 18:00 Glucose (Glutose) 15 gm Q15M PRN PO DECREASED GLUCOSE; Start 09/02/16 at 18:00 Glucose (Glutose) 22.5 gm Q15M PRN PO DECREASED GLUCOSE; Start 09/02/16 at 18: 00 Dextrose (D50w Syringe) 25 ml Q15M PRN IV DECREASED GLUCOSE; Start 09/02/16 at 18:00 Dextrose (D50w Syringe) 50 ml Q15M PRN IV DECREASED GLUCOSE; Start 09/02/16 at 18:00 Glucagon (Glucagen) 1 mg Q15M PRN IM DECREASED GLUCOSE; Start 09/02/16 at 18: 00 Glucose (Glutose) 15 gm Q15M PRN BUCCAL DECREASED GLUCOSE; Start 09/02/16 at 18:00 Hydralazine HCl (Apresoline) 10 mg Q4H PRN IV ELEVATED BLOOD PRESSURE Last administered on 09/14/16at 08:00; Admin Dose 10 MG; Start 09/05/16 at 15:00 Amlodipine Besylate (Norvasc) 5 mg BID PO Last administered on 09/12/16at 08:32 ; Admin Dose 5 MG; Start 09/06/16 at 11:30 Carvedilol (Coreg) 12.5 mg BID PO Last administered on 09/12/16at 08:31; Admin Dose 12.5 MG; Start 09/06/16 at 11:30 Lisinopril 40 mg 40 mg DAILY PO Last administered on 09/12/16at 08:32; Admin Dose 40 MG; Start 09/06/16 at 11:30 Dextrose/Sodium Chloride (D5-NS) 1,000 ml @ 75 mls/hr [id number] IV Last administered on 09/14/16at 06:59; Admin Dose 75 MLS/HR; Start 09/07/16 at 02:00 Insulin Glargine (Lantus) 40 unit HS SC Last administered on 09/13/16at 20:27; Admin Dose 40 UNIT; Start 09/07/16 at 21:00 Hydralazine HCl (Apresoline) 10 mg Q8 PO Last administered on 09/12/16at 05:54 ; Admin Dose 10 MG; Start 09/09/16 at 09:00 Citalopram Hydrobromide (Celexa) 20 mg DAILY PO Last administered on at 08:30; Admin Dose 20 MG; Start 09/10/16 at 09:00 CHRISSIE LOMAX MD Sep 14, 2016 08:42
[2016-09-14] MEDS: FAMOTIDINE 20 MG INJ IV SCH ×2 (08:45→20:36)
[2016-09-14] MEDS: CITALOPRAM 20 MG TAB PO SCH (09:00)
[2016-09-14] MEDS: AMLODIPINE 5 MG TAB PO SCH ×2 (09:00→20:52)
[2016-09-14] MEDS: CLOPIDOGREL 75 MG TAB PO SCH (09:00)
[2016-09-14] MEDS: ASPIRIN (EC) 325 MG TAB PO SCH (09:00)
[2016-09-14] MEDS: LISINOPRIL 20 MG TAB PO SCH (09:00)
[2016-09-14] MEDS: GEMFIBROZIL 600 MG TAB PO SCH ×2 (09:00→20:51)
[2016-09-14 12:02] VITALS: BP 162/77; PULSE 69
[2016-09-14 19:50] VITALS: BP 185/87; PULSE 83; RESP 18
[2016-09-14 20:45] VITALS: BP 176/82; PULSE 85; RESP 18
[2016-09-14] MEDS: INSULIN GLARGINE [LANtus] 3 ML PEN SC SCH (20:50)
[2016-09-14] MEDS: ATORVASTATIN 80 MG TAB PO SCH (20:51)
[2016-09-14 21:00] VITALS: BP 168/72; PULSE 87; RESP 18
[2016-09-14 21:15] VITALS: BP 152/74; PULSE 74; RESP 18
[2016-09-15] VITALS (8 sets, daily range): BP systolic 154–231; BP diastolic 51–109; PULSE 77–89; RESP 18
[2016-09-15] MEDS: morphine 2 MG INJ IV PRN ×4 (00:32→20:13)
[2016-09-15] MEDS: hydrALAzine 20 MG INJ IV PRN ×3 (03:54→20:13)
[2016-09-15] MEDS: INSULIN ASPART [NOVOLOG] 3 ML PEN SC SCH ×7 (08:00→21:00)
--- NOTE | 2016-09-15 08:37 | PN ---
Date/Time of Note Date/Time of Note DATE: 09/15/16 TIME: 08:34 Assessment/Plan VTE Prophylaxis VTE Prophylaxis Intervention: other VTE Contraindication Reason: refusal of treatment by patient Lines/Catheters [facility] Type (from [facility] Peripheral IV Urinary Cath still in place: No Assessment/Plan Assessment/Plan 66-year-old male coming in with left-sided weakness and facial droop with signs of positive stroke on the head CT. 1. CVA w/ left weakness - MRI of the brain shows: Acute non hemorrhagic left basal ganglia and right neural white matter infarcts. ECHO from 08/24 showed: Conclusions - EF 60%, stage I diastolic dysfunction , LVH - continue high-dose aspirin/plavix - statin - f/u neurology consult rec's, tx bp - f/u PT, OT and speech therapy rec's - ST given throat pain and difficulty swallowing pills - continue to work with speech therapy 2. Diabetes type II -sliding scale insulin and his home insulins, a1c 11.9 - diabetic education 3. Hypertension essential - continue hydralazine IV prn > 160, continue home meds 4. Depressed mood - will start celexa 20 mg po daily, once cleared by speech 5. Peripheral vascular disease. Continue aspirin, Plavix for now. 6. Gastrointestinal prophylaxis. H2 mariano. 7. Deep venous thrombosis prophylaxis. SCD's dispo- f/u recs, PT, speech treatment, as per clinical course - needs SNF/Rehab - [facility] - will adjust medications to either IV or liquid formulary this progress note took greater than 20 minutes to complete Subjective 24 Hr Interval Summary Free Text/Dictation Patient had no overnight events. Still with elevated blood pressures. Refusing oral medications. spoke to the patient and nurse about the care plan. 15 minutes spent. Exam/Review of Systems Vital Signs Vitals Vital Signs Date Time Temp Pulse Resp B/P Pulse Ox O2 Delivery O2 Flow Rate FiO2 09/15/16 07:27 98.8 95 18 179/81 95 09/15/16 03:50 Room Air Intake and Output 09/14/16 09/14/16 09/15/16 15:00 23:00 07:00 Intake Total 1405 ml 870 ml Output Total 1400 ml 1250 ml Balance 5 ml -380 ml Exam Gen Elpidio: NAD, AAOx4, generalized malaise HEENT: left facial droop, PERRLA, EOMI, no carotid bruits present NECK: supple, no thyromegaly THORAX: symmetrical, no obvious deformities CV: S1S2, RRR, no M/G/R Lungs: CTAB no W/C/R/R Abd: soft, NT/ND, +BS, no rebound, no guarding, neg HSM EXT: left upper - increasing movement ability 1/5 and lower extremity with flaccid paralysis, right with normal ROM, no edema, onychomycosis present Neuro: CN II-IV, , VIII-XII grossly intact, V, VII abnormal, left sided flaccid paralysis Psych: fair mood and affect Skin: C/D/I Results Result Diagram: 09/14/1630 09/14/16 06 Results 24 hrs Laboratory Tests Test 09/14/16 11:55 09/14/16 16:58 09/14/16 20:42 09/15/16 07:43 Bedside Glucose 152 133 201 89 Medications Medications Current Medications Acetaminophen (Tylenol Tab) 650 mg Q6H PRN PO PAIN LEVEL 1-3 OR FEVER; Start 09/02/16 at 17:00 Acetaminophen/ Hydrocodone Bitart ([place] (5/325)) 1 tab Q6H PRN PO MODERATE PAIN LEVEL 4-6; Start 09/02/16 at 17:00 Morphine Sulfate (morphine) 2 mg Q4H PRN IV SEVERE PAIN LEVEL 7-10 Last administered on 09/15/16t 00:32; Admin Dose 2 MG; Start 09/02/16 at 17:00 Docusate Sodium (Colace) 100 mg Q12H PRN PO CONSTIPATION; Start 09/02/16 at 17 :00 Sodium Biphosphate/ Sodium Phosphate (Fleet Enema) 133 ml DAILY PRN [place] CONSTIPATION Last administered on 09/13/16at 00:31; Admin Dose 133 ML; Start at 17:00 Famotidine (Pepcid Iv) 20 mg Q12 IV Last administered on 09/14/16at 20:36; Admin Dose 20 MG; Start 09/02/16 at 21:00 Ondansetron HCl (Zofran Inj) 4 mg Q6H PRN IV NAUSEA AND/OR VOMITING; Start at 17:00 Lorazepam (Ativan) 0.5 mg Q6H PRN IV ANXIETY Last administered on 09/10/16at 14 :15; Admin Dose 0.5 MG; Start 09/02/16 at 17:00 Nitroglycerin (Nitroglycerin (Sl Tab) 0.4 Mg) 1 tab Q5M PRN SL ANGINA; Start 09/02/16 at 17:00 Aspirin (Ecotrin) 325 mg DAILY PO Last administered on 09/12/16at 08:30; Admin Dose 325 MG; Start 09/03/16 at 09:00 Clopidogrel Bisulfate (plaVIX) 75 mg DAILY PO Last administered on 09/12/16at 08:31; Admin Dose 75 MG; Start 09/03/16 at 09:00 Enoxaparin Sodium (Lovenox) 40 mg DAILY SC ; Start 09/03/16 at 09:00; Status Future Hold Gemfibrozil (Lopid) 600 mg BID PO Last administered on 09/12/16at 08:30; Admin Dose 600 MG; Start 09/02/16 at 21:00 Magnesium Hydroxide (Milk Of Mag) 30 ml DAILY PRN PO CONSTIPATION; Start 09/02 at 17:00 Atorvastatin Calcium (Lipitor) 80 mg HS PO Last administered on 09/07/16at 21: 11; Admin Dose 80 MG; Start 09/02/16 at 21:00 Miscellaneous Information 1 ea NOTE XX ; Start 09/02/16 at 18:00 Glucose (Glutose) 15 gm Q15M PRN PO DECREASED GLUCOSE; Start 09/02/16 at 18:00 Glucose (Glutose) 22.5 gm Q15M PRN PO DECREASED GLUCOSE; Start 09/02/16 at 18: 00 Dextrose (D50w Syringe) 25 ml Q15M PRN IV DECREASED GLUCOSE; Start 09/02/16 at 18:00 Dextrose (D50w Syringe) 50 ml Q15M PRN IV DECREASED GLUCOSE; Start 09/02/16 at 18:00 Glucagon (Glucagen) 1 mg Q15M PRN IM DECREASED GLUCOSE; Start 09/02/16 at 18: 00 Glucose (Glutose) 15 gm Q15M PRN BUCCAL DECREASED GLUCOSE; Start 09/02/16 at 18:00 Hydralazine HCl (Apresoline) 10 mg Q4H PRN IV ELEVATED BLOOD PRESSURE Last administered on 09/15/16t 03:54; Admin Dose 10 MG; Start 09/05/16 at 15:00 Amlodipine Besylate (Norvasc) 5 mg BID PO Last administered on 09/12/16 08:32 ; Admin Dose 5 MG; Start 09/06/16 at 11:30 Carvedilol (Coreg) 12.5 mg BID PO Last administered on 09/12/16 08:31; Admin Dose 12.5 MG; Start 09/06/16 at 11:30 Lisinopril 40 mg 40 mg DAILY PO Last administered on 09/12/16 08:32; Admin Dose 40 MG; Start 09/06/16 at 11:30 Dextrose/Sodium Chloride (D5-NS) 1,000 ml @ 75 mls/hr [id number] IV Last administered on 09/14/16at 20:33; Admin Dose 75 MLS/HR; Start 09/07/16 at 02:00 Insulin Glargine (Lantus) 40 unit HS SC Last administered on 09/14/16at 20:50; Admin Dose 40 UNIT; Start 09/07/16 at 21:00 Hydralazine HCl (Apresoline) 10 mg Q8 PO Last administered on 09/12/16at 05:54 ; Admin Dose 10 MG; Start 09/09/16 at 09:00 Citalopram Hydrobromide (Celexa) 20 mg DAILY PO Last administered on at 08:30; Admin Dose 20 MG; Start 09/10/16 at 09:00 CHRISSIE LOMAX MD Sep 15, 2016 08:37
[2016-09-15] MEDS: FAMOTIDINE 20 MG INJ IV SCH ×2 (08:39→20:13)
[2016-09-15] MEDS: CLOPIDOGREL 75 MG TAB PO SCH (09:00)
[2016-09-15] MEDS: GEMFIBROZIL 600 MG TAB PO SCH ×2 (09:00→20:15)
[2016-09-15] MEDS: CITALOPRAM 20 MG TAB PO SCH (09:00)
[2016-09-15] MEDS: LISINOPRIL 20 MG TAB PO SCH (09:00)
[2016-09-15] MEDS: ASPIRIN (EC) 325 MG TAB PO SCH (09:00)
[2016-09-15] MEDS: AMLODIPINE 5 MG TAB PO SCH ×2 (09:00→20:15)
[2016-09-15] MEDS: DEXTROSE 5%-0.9% NACL 1,000 ML IV SCH ×2 (10:57→23:41)
[2016-09-15] MEDS: ATORVASTATIN 80 MG TAB PO SCH (20:15)
[2016-09-15] MEDS: INSULIN GLARGINE [LANtus] 3 ML PEN SC SCH (22:02)
[2016-09-15] MEDS: CLONIDINE 0.2 MG/24 HR PATCH TRANSDERM SCH (22:05)
[2016-09-16] VITALS (7 sets, daily range): BP systolic 124–201; BP diastolic 69–92; PULSE 77–81; RESP 16–18
[2016-09-16] MEDS: hydrALAzine 20 MG INJ IV PRN ×3 (00:03→09:26)
[2016-09-16] MEDS: morphine 2 MG INJ IV PRN ×4 (01:06→15:21)
[2016-09-16] MEDS: FAMOTIDINE 20 MG INJ IV SCH ×2 (08:11→21:59)
[2016-09-16] MEDS: INSULIN ASPART [NOVOLOG] 3 ML PEN SC SCH ×7 (08:17→21:00)
[2016-09-16] MEDS: CITALOPRAM 20 MG TAB PO SCH ×2 (08:18→12:10)
[2016-09-16] MEDS: ASPIRIN (EC) 325 MG TAB PO SCH ×2 (08:19→12:10)
[2016-09-16] MEDS: AMLODIPINE 5 MG TAB PO SCH ×3 (08:19→21:42)
[2016-09-16] MEDS: CLOPIDOGREL 75 MG TAB PO SCH ×2 (08:19→12:10)
[2016-09-16] MEDS: GEMFIBROZIL 600 MG TAB PO SCH ×3 (08:19→21:43)
[2016-09-16] MEDS: LISINOPRIL 20 MG TAB PO SCH ×2 (08:19→12:10)
[2016-09-16] MEDS ORDERED: GUAIFENESIN 20 MG/ML 5ML CUP PO PRN (09:00)
[2016-09-16] MEDS ORDERED: CEPASTAT LOZENGE MT PRN (09:00)
--- NOTE | 2016-09-16 09:04 | PN ---
Date/Time of Note Date/Time of Note DATE: 09/16/16 TIME: 08:54 Assessment/Plan VTE Prophylaxis VTE Prophylaxis Intervention: other Lines/Catheters IV [facility] Type (from [facility] Peripheral IV Urinary Cath still in place: No Assessment/Plan Chief Complaint/Hosp Course Assessment/Plan: 66-year-old male coming in with left-sided weakness and facial droop with signs of positive stroke on the head CT. 1. CVA w/ left weakness - MRI of the brain shows: Acute non hemorrhagic left basal ganglia and right neural white matter infarcts. ECHO from 08/24 showed: Conclusions - EF 60%, stage I diastolic dysfunction , LVH - continue high-dose aspirin/plavix - statin - f/u neurology consult rec's, tx bp - f/u PT, OT and speech therapy rec's - ST given throat pain and difficulty swallowing pills - continue to work with speech therapy 2. Diabetes type II -sliding scale insulin and his home insulins, a1c 11.9 - diabetic education, FS presently stable 3. Hypertension essential - continue hydralazine IV prn > 160, continue home meds 4. Depressed mood - started on celexa 20 mg po daily, once cleared by speech 5. Peripheral vascular disease. Continue aspirin, Plavix for now. 6. Gastrointestinal prophylaxis. H2 mariano. 7. Deep venous thrombosis prophylaxis. SCD's dispo- f/u recs, PT, speech treatment, as per clinical course - needs SNF/Rehab - [facility] - will adjust medications to either IV or liquid formulary Problems: Subjective 24 Hr Interval Summary Free Text/Dictation Pt complaining of PO throat pain when swallowing pills, and thus not taking PO meds presently. Exam/Review of Systems Vital Signs Vitals Vital Signs Date Time Temp Pulse Resp B/P Pulse Ox O2 Delivery O2 Flow Rate FiO2 09/16/16 08:08 99.1 88 18 176/80 94 09/15/16 03:50 Room Air Intake and Output 09/15/16 09/15/16 09/16/16 15:00 23:00 07:00 Intake Total 250 ml 1910 ml 1669 ml Output Total 2300 ml 1250 ml Balance 250 ml -390 ml 419 ml Exam Gen Elpidio: NAD, AAOx4, generalized malaise HEENT: left facial droop, PERRLA, EOMI, no carotid bruits present NECK: supple, no thyromegaly THORAX: symmetrical, no obvious deformities CV: S1S2, RRR, no M/G/R Lungs: CTAB no W/C/R/R Abd: soft, NT/ND, +BS, no rebound, no guarding, neg HSM EXT: left upper - increasing movement ability 1/5 and lower extremity with flaccid paralysis, right with normal ROM, no edema, onychomycosis present Neuro: CN II-IV, , VIII, IX, X, XI, XII grossly intact. V, VII abnormal, left sided flaccid paralysis Psych: fair mood and affect Skin: C/D/I Results Result Diagram: 09/14/1630 09/14/16 0630 Results 24 hrs Laboratory Tests Test 09/15/16 12:01 09/15/16 17:01 09/15/16 21:57 09/16/16 07:48 Bedside Glucose 106 122 140 173 Medications Medications Current Medications Acetaminophen (Tylenol Tab) 650 mg Q6H PRN PO PAIN LEVEL 1-3 OR FEVER; Start 09/02/16 at 17:00 Acetaminophen/ Hydrocodone Bitart ([place] (5/325)) 1 tab Q6H PRN PO MODERATE PAIN LEVEL 4-6; Start 09/02/16 at 17:00 Morphine Sulfate (morphine) 2 mg Q4H PRN IV SEVERE PAIN LEVEL 7-10 Last administered on 09/16/16 05:34; Admin Dose 2 MG; Start 09/02/16 at 17:00 Docusate Sodium (Colace) 100 mg Q12H PRN PO CONSTIPATION; Start 09/02/16 at 17 :00 Sodium Biphosphate/ Sodium Phosphate (Fleet Enema) 133 ml DAILY PRN [place] CONSTIPATION Last administered on 09/13/16at 00:31; Admin Dose 133 ML; Start at 17:00 Famotidine (Pepcid Iv) 20 mg Q12 IV Last administered on 09/16/16 08:11; Admin Dose 20 MG; Start 09/02/16 at 21:00 Ondansetron HCl (Zofran Inj) 4 mg Q6H PRN IV NAUSEA AND/OR VOMITING; Start at 17:00 Lorazepam (Ativan) 0.5 mg Q6H PRN IV ANXIETY Last administered on 09/10/16at 14 :15; Admin Dose 0.5 MG; Start 09/02/16 at 17:00 Nitroglycerin (Nitroglycerin (Sl Tab) 0.4 Mg) 1 tab Q5M PRN SL ANGINA; Start 09/02/16 at 17:00 Aspirin (Ecotrin) 325 mg DAILY PO Last administered on 09/12/16at 08:30; Admin Dose 325 MG; Start 09/03/16 at 09:00 Clopidogrel Bisulfate (plaVIX) 75 mg DAILY PO Last administered on 09/12/16at 08:31; Admin Dose 75 MG; Start 09/03/16 at 09:00 Enoxaparin Sodium (Lovenox) 40 mg DAILY SC ; Start 09/03/16 at 09:00; Status Future Hold Gemfibrozil (Lopid) 600 mg BID PO Last administered on 09/12/16at 08:30; Admin Dose 600 MG; Start 09/02/16 at 21:00 Magnesium Hydroxide (Milk Of Mag) 30 ml DAILY PRN PO CONSTIPATION; Start 09/02 at 17:00 Atorvastatin Calcium (Lipitor) 80 mg HS PO Last administered on 09/07/16at 21: 11; Admin Dose 80 MG; Start 09/02/16 at 21:00 Miscellaneous Information 1 ea NOTE XX ; Start 09/02/16 at 18:00 Glucose (Glutose) 15 gm Q15M PRN PO DECREASED GLUCOSE; Start 09/02/16 at 18:00 Glucose (Glutose) 22.5 gm Q15M PRN PO DECREASED GLUCOSE; Start 09/02/16 at 18: 00 Dextrose (D50w Syringe) 25 ml Q15M PRN IV DECREASED GLUCOSE; Start 09/02/16 at 18:00 Dextrose (D50w Syringe) 50 ml Q15M PRN IV DECREASED GLUCOSE; Start 09/02/16 at 18:00 Glucagon (Glucagen) 1 mg Q15M PRN IM DECREASED GLUCOSE; Start 09/02/16 at 18: 00 Glucose (Glutose) 15 gm Q15M PRN BUCCAL DECREASED GLUCOSE; Start 09/02/16 at 18:00 Hydralazine HCl (Apresoline) 10 mg Q4H PRN IV ELEVATED BLOOD PRESSURE Last administered on 09/16/16 05:35; Admin Dose 10 MG; Start 09/05/16 at 15:00 Amlodipine Besylate (Norvasc) 5 mg BID PO Last administered on 09/12/16 08:32 ; Admin Dose 5 MG; Start 09/06/16 at 11:30 Carvedilol (Coreg) 12.5 mg BID PO Last administered on 09/12/16 08:31; Admin Dose 12.5 MG; Start 09/06/16 at 11:30 Lisinopril 40 mg 40 mg DAILY PO Last administered on 09/12/16 08:32; Admin Dose 40 MG; Start 09/06/16 at 11:30 Dextrose/Sodium Chloride (D5-NS) 1,000 ml @ 75 mls/hr [id number] IV Last administered on 09/15/16 23:41; Admin Dose 75 MLS/HR; Start 09/07/16 at 02:00 Insulin Glargine (Lantus) 40 unit HS SC Last administered on 09/15/16 22:02; Admin Dose 40 UNIT; Start 09/07/16 at 21:00 Hydralazine HCl (Apresoline) 10 mg Q8 PO Last administered on 09/12/16 05:54 ; Admin Dose 10 MG; Start 09/09/16 at 09:00 Citalopram Hydrobromide (Celexa) 20 mg DAILY PO Last administered on 08:30; Admin Dose 20 MG; Start 09/10/16 at 09:00 Clonidine HCl (Catapres-Tts 2 Patch) 1 patch Oquendo@22 TRANSDERM Last administered on 09/15/16 22:05; Admin Dose 1 PATCH; Start 09/15/16 at 22:00 ALBINA HUERTA Sep 16, 2016 09:04
[2016-09-16] MEDS: DEXTROSE 5%-0.9% NACL 1,000 ML IV SCH ×2 (12:40→15:20)
[2016-09-16] MEDS: ATORVASTATIN 80 MG TAB PO SCH (21:42)
[2016-09-16] MEDS: INSULIN GLARGINE [LANtus] 3 ML PEN SC SCH (21:55)
[2016-09-17] MEDS: DEXTROSE 5%-0.9% NACL 1,000 ML IV SCH ×4 (02:00→18:20)
[2016-09-17 07:23] VITALS: BP 144/70; RESP 18
[2016-09-17] MEDS: INSULIN ASPART [NOVOLOG] 3 ML PEN SC SCH ×7 (08:00→21:00)
[2016-09-17] MEDS: LISINOPRIL 20 MG TAB PO SCH (08:16)
[2016-09-17] MEDS: CITALOPRAM 20 MG TAB PO SCH (08:16)
[2016-09-17] MEDS: CLOPIDOGREL 75 MG TAB PO SCH (08:16)
[2016-09-17] MEDS: ASPIRIN (EC) 325 MG TAB PO SCH (08:16)
[2016-09-17] MEDS: GEMFIBROZIL 600 MG TAB PO SCH ×2 (08:16→21:15)
[2016-09-17] MEDS: AMLODIPINE 5 MG TAB PO SCH ×2 (08:16→21:15)
[2016-09-17] MEDS: FAMOTIDINE 20 MG INJ IV SCH ×2 (08:17→21:15)
[2016-09-17] MEDS: morphine 2 MG INJ IV PRN ×2 (08:29→21:33)
--- NOTE | 2016-09-17 10:10 | PN ---
Date/Time of Note Date/Time of Note DATE: 09/17/16 TIME: 10:07 Assessment/Plan VTE Prophylaxis VTE Prophylaxis Intervention: other Lines/Catheters IV [facility] Type (from [facility] Peripheral IV Urinary Cath still in place: No Assessment/Plan Chief Complaint/Hosp Course Assessment/Plan: 66-year-old male coming in with left-sided weakness and facial droop with signs of positive stroke on the head CT. 1. CVA w/ left weakness - MRI of the brain shows: Acute non hemorrhagic left basal ganglia and right neural white matter infarcts. ECHO from 08/24 showed: Conclusions - EF 60%, stage I diastolic dysfunction , LVH - continue high-dose aspirin/plavix - statin - f/u neurology consult rec's, tx bp - f/u PT, OT and speech therapy rec's - ST given throat pain and difficulty swallowing pills - continue to work with speech therapy 2. Diabetes type II -sliding scale insulin and his home insulins, a1c 11.9 - diabetic education, FS presently stable 3. Hypertension essential - continue hydralazine IV prn > 160, continue home meds 4. Depressed mood - continue celexa 20 mg po daily, once cleared by speech 5. Peripheral vascular disease. Continue aspirin, Plavix for now. 6. Gastrointestinal prophylaxis. H2 mariano. 7. Deep venous thrombosis prophylaxis. SCD's dispo- f/u recs, PT, speech treatment, as per clinical course - needs SNF/Rehab - [facility] - f/u with CM on this. Problems: Subjective 24 Hr Interval Summary Free Text/Dictation After instructing pt about importance of taking his PO meds, pt has better adherence to this now, bp improved subsequently. Otherwise no acute events overnight. Exam/Review of Systems Vital Signs Vitals Vital Signs Date Time Temp Pulse Resp B/P Pulse Ox O2 Delivery O2 Flow Rate FiO2 09/17/16 07:23 98.0 65 18 144/70 97 09/15/16 03:50 Room Air Intake and Output 09/16/16 09/16/16 09/17/16 15:00 23:00 07:00 Intake Total 966 ml 1355 ml Output Total 1000 ml 500 ml Balance -34 ml 855 ml Exam Gen Elpidio: NAD, AAOx4, generalized malaise HEENT: left facial droop, PERRLA, EOMI, no carotid bruits present NECK: supple, no thyromegaly THORAX: symmetrical, no obvious deformities CV: S1S2, RRR, no M/G/R Lungs: CTAB no W/C/R/R Abd: soft, NT/ND, +BS, no rebound, no guarding, neg HSM EXT: left upper - increasing movement ability 1/5 and lower extremity with flaccid paralysis, right with normal ROM, no edema, onychomycosis present Neuro: CN II-IV, , VIII, IX, X, XI, XII grossly intact. V, VII abnormal, left sided flaccid paralysis Psych: fair mood and affect Skin: C/D/I Results Result Diagram: 09/14/1662909/14/16629 Results 24 hrs Laboratory Tests Test 09/16/16 12:09 09/16/16 17:44 09/16/16 21:38 09/17/16 07:40 Bedside Glucose 135 145 130 116 Medications Medications Current Medications Acetaminophen (Tylenol Tab) 650 mg Q6H PRN PO PAIN LEVEL 1-3 OR FEVER; Start 09/02/16 at 17:00 Acetaminophen/ Hydrocodone Bitart ([place] (5/325)) 1 tab Q6H PRN PO MODERATE PAIN LEVEL 4-6; Start 09/02/16 at 17:00 Morphine Sulfate (morphine) 2 mg Q4H PRN IV SEVERE PAIN LEVEL 7-10 Last administered on 09/17/16 08:29; Admin Dose 2 MG; Start 09/02/16 at 17:00 Docusate Sodium (Colace) 100 mg Q12H PRN PO CONSTIPATION; Start 09/02/16 at 17 :00 Sodium Biphosphate/ Sodium Phosphate (Fleet Enema) 133 ml DAILY PRN [place] CONSTIPATION Last administered on 09/13/16at 00:31; Admin Dose 133 ML; Start at 17:00 Famotidine (Pepcid Iv) 20 mg Q12 IV Last administered on 09/17/16 08:17; Admin Dose 20 MG; Start 09/02/16 at 21:00 Ondansetron HCl (Zofran Inj) 4 mg Q6H PRN IV NAUSEA AND/OR VOMITING; Start at 17:00 Lorazepam (Ativan) 0.5 mg Q6H PRN IV ANXIETY Last administered on 09/10/16at 14 :15; Admin Dose 0.5 MG; Start 09/02/16 at 17:00 Nitroglycerin (Nitroglycerin (Sl Tab) 0.4 Mg) 1 tab Q5M PRN SL ANGINA; Start 09/02/16 at 17:00 Aspirin (Ecotrin) 325 mg DAILY PO Last administered on 09/17/16 08:16; Admin Dose 325 MG; Start 09/03/16 at 09:00 Clopidogrel Bisulfate (plaVIX) 75 mg DAILY PO Last administered on 09/17/16 08: 16; Admin Dose 75 MG; Start 09/03/16 at 09:00 Enoxaparin Sodium (Lovenox) 40 mg DAILY SC ; Start 09/03/16 at 09:00; Status Future Hold Gemfibrozil (Lopid) 600 mg BID PO Last administered on 09/17/16 08:16; Admin Dose 600 MG; Start 09/02/16 at 21:00 Magnesium Hydroxide (Milk Of Mag) 30 ml DAILY PRN PO CONSTIPATION; Start 09/02 at 17:00 Atorvastatin Calcium (Lipitor) 80 mg HS PO Last administered on 09/16/16 21:42 ; Admin Dose 80 MG; Start 09/02/16 at 21:00 Miscellaneous Information 1 ea NOTE XX ; Start 09/02/16 at 18:00 Glucose (Glutose) 15 gm Q15M PRN PO DECREASED GLUCOSE; Start 09/02/16 at 18:00 Glucose (Glutose) 22.5 gm Q15M PRN PO DECREASED GLUCOSE; Start 09/02/16 at 18: 00 Dextrose (D50w Syringe) 25 ml Q15M PRN IV DECREASED GLUCOSE; Start 09/02/16 at 18:00 Dextrose (D50w Syringe) 50 ml Q15M PRN IV DECREASED GLUCOSE; Start 09/02/16 at 18:00 Glucagon (Glucagen) 1 mg Q15M PRN IM DECREASED GLUCOSE; Start 09/02/16 at 18: 00 Glucose (Glutose) 15 gm Q15M PRN BUCCAL DECREASED GLUCOSE; Start 09/02/16 at 18:00 Hydralazine HCl (Apresoline) 10 mg Q4H PRN IV ELEVATED BLOOD PRESSURE Last administered on 09/16/16 09:26; Admin Dose 10 MG; Start 09/05/16 at 15:00 Amlodipine Besylate (Norvasc) 5 mg BID PO Last administered on 09/17/16 08:16; Admin Dose 5 MG; Start 09/06/16 at 11:30 Carvedilol (Coreg) 12.5 mg BID PO Last administered on 09/17/16 08:16; Admin Dose 12.5 MG; Start 09/06/16 at 11:30 Lisinopril 40 mg 40 mg DAILY PO Last administered on 09/17/16 08:16; Admin Dose 40 MG; Start 09/06/16 at 11:30 Dextrose/Sodium Chloride (D5-NS) 1,000 ml @ 75 mls/hr [id number] IV Last administered on 09/17/16 05:02; Admin Dose 75 MLS/HR; Start 09/07/16 at 02:00 Insulin Glargine (Lantus) 40 unit HS SC Last administered on 09/16/16 21:55; Admin Dose 40 UNIT; Start 09/07/16 at 21:00 Hydralazine HCl (Apresoline) 10 mg Q8 PO Last administered on 09/17/16 06:00; Admin Dose 10 MG; Start 09/09/16 at 09:00 Citalopram Hydrobromide (Celexa) 20 mg DAILY PO Last administered on 09/17/16 08:16; Admin Dose 20 MG; Start 09/10/16 at 09:00 Clonidine HCl (Catapres-Tts 2 Patch) 1 patch [place]endo@22 TRANSDERM Last administered on 09/15/16 22:05; Admin Dose 1 PATCH; Start 09/15/16 at 22:00 Guaifenesin (Robitussin Liquid Cup) 200 mg Q4H PRN PO SORE THROAT Last administered on 09/16/16 09:26; Admin Dose 200 MG; Start 09/16/16 at 09:00 Phenol (Cepastat Lozenge) 1 lozenge Q1H PRN [place] SORE THROAT; Start 09/16/16 at 09 :00 ALBINA HUERTA Sep 17, 2016 10:10
[2016-09-17 19:00] VITALS: BP 127/74; RESP 20
[2016-09-17] MEDS: ATORVASTATIN 80 MG TAB PO SCH (21:15)
[2016-09-17] MEDS: INSULIN GLARGINE [LANtus] 3 ML PEN SC SCH (21:27)
[2016-09-18] MEDS: morphine 2 MG INJ IV PRN ×3 (02:35→21:25)
[2016-09-18] MEDS: DEXTROSE 5%-0.9% NACL 1,000 ML IV SCH ×2 (04:40→07:30)
[2016-09-18 05:38] VITALS: BP 140/73; PULSE 62; RESP 20
[2016-09-18 07:22] VITALS: BP 136/90; RESP 18
[2016-09-18] MEDS: INSULIN ASPART [NOVOLOG] 3 ML PEN SC SCH ×7 (08:00→21:00)
[2016-09-18] MEDS: FAMOTIDINE 20 MG INJ IV SCH ×2 (08:39→21:18)
--- NOTE | 2016-09-18 10:37 | PN ---
Date/Time of Note Date/Time of Note DATE: 09/18/16 TIME: 10:34 Assessment/Plan VTE Prophylaxis VTE Prophylaxis Intervention: SCD's, other Lines/Catheters IV Catheter Type (from [facility]): Peripheral IV Urinary Cath still in place: No Assessment/Plan Chief Complaint/Hosp Course Assessment/Plan: 66-year-old male coming in with left-sided weakness and facial droop with signs of positive stroke on the head CT. 1. CVA w/ left weakness - MRI of the brain shows: Acute non hemorrhagic left basal ganglia and right neural white matter infarcts. ECHO from 08/24 showed: Conclusions - EF 60%, stage I diastolic dysfunction , LVH - continue high-dose aspirin/plavix - statin - f/u neurology consult rec's, tx bp - f/u PT, OT and speech therapy rec's - ST given throat pain and difficulty swallowing pills - continue to work with speech therapy. Also have instructed nurse to crush pills and mix with food to help pt take meds. 2. Diabetes type II -sliding scale insulin and his home insulins, a1c 11.9 - diabetic education, FS presently stable 3. Hypertension essential - continue hydralazine IV prn > 160, continue home meds 4. Depressed mood - continue celexa 20 mg po daily, once cleared by speech 5. Peripheral vascular disease. Continue aspirin, Plavix for now. 6. Gastrointestinal prophylaxis. H2 mariano. 7. Deep venous thrombosis prophylaxis. SCD's dispo- f/u recs, PT, speech treatment, as per clinical course - needs SNF/Rehab - [facility] - f/u with CM on this. Problems: Subjective 24 Hr Interval Summary Free Text/Dictation Pt refused PO meds this AM. No acute events overnight. Exam/Review of Systems Vital Signs Vitals Vital Signs Date Time Temp Pulse Resp B/P Pulse Ox O2 Delivery O2 Flow Rate FiO2 09/18/16 07:22 98.1 67 18 136/90 97 09/15/16 03:50 Room Air Intake and Output 09/17/16 09/17/16 09/18/16 15:00 23:00 07:00 Intake Total 1360 ml 945 ml Output Total 500 ml 400 ml Balance 860 ml 545 ml Exam Gen Elpidio: NAD, AAOx4, generalized malaise HEENT: left facial droop, PERRLA, EOMI, no carotid bruits present NECK: supple, no thyromegaly THORAX: symmetrical, no obvious deformities CV: S1S2, RRR, no M/G/R Lungs: CTAB no W/C/R/R Abd: soft, NT/ND, +BS, no rebound, no guarding, neg HSM EXT: left upper - increasing movement ability 1/5 and lower extremity with flaccid paralysis, right with normal ROM, no edema, onychomycosis present Neuro: CN II-IV, , VIII, IX, X, XI, XII grossly intact. V, VII abnormal, left sided flaccid paralysis Psych: fair mood and affect Skin: C/D/I Results Result Diagram: 09/14/16 0630 09/14/16 0630 Results 24 hrs Laboratory Tests Test 09/17/16 12:07 09/17/16 17:06 09/17/16 21:11 09/18/16 08:03 Bedside Glucose 215 153 107 59 L Test 09/18/16 08:35 09/18/16 08:58 Bedside Glucose 108 146 Medications Medications Current Medications Acetaminophen (Tylenol Tab) 650 mg Q6H PRN PO PAIN LEVEL 1-3 OR FEVER; Start 09/02/16 at 17:00 Acetaminophen/ Hydrocodone Bitart ([place] (5/325)) 1 tab Q6H PRN PO MODERATE PAIN LEVEL 4-6; Start 09/02/16 at 17:00 Morphine Sulfate (morphine) 2 mg Q4H PRN IV SEVERE PAIN LEVEL 7-10 Last administered on 09/18/16 02:35; Admin Dose 2 MG; Start 09/02/16 at 17:00 Docusate Sodium (Colace) 100 mg Q12H PRN PO CONSTIPATION; Start 09/02/16 at 17 :00 Sodium Biphosphate/ Sodium Phosphate (Fleet Enema) 133 ml DAILY PRN [place] CONSTIPATION Last administered on 09/13/16at 00:31; Admin Dose 133 ML; Start at 17:00 Famotidine (Pepcid Iv) 20 mg Q12 IV Last administered on 09/18/16 08:39; Admin Dose 20 MG; Start 09/02/16 at 21:00 Ondansetron HCl (Zofran Inj) 4 mg Q6H PRN IV NAUSEA AND/OR VOMITING; Start at 17:00 Lorazepam (Ativan) 0.5 mg Q6H PRN IV ANXIETY Last administered on 09/10/16at 14 :15; Admin Dose 0.5 MG; Start 09/02/16 at 17:00 Nitroglycerin (Nitroglycerin (Sl Tab) 0.4 Mg) 1 tab Q5M PRN SL ANGINA; Start 09/02/16 at 17:00 Aspirin (Ecotrin) 325 mg DAILY PO Last administered on 09/17/16 08:16; Admin Dose 325 MG; Start 09/03/16 at 09:00 Clopidogrel Bisulfate (plaVIX) 75 mg DAILY PO Last administered on 09/17/16 08: 16; Admin Dose 75 MG; Start 09/03/16 at 09:00 Enoxaparin Sodium (Lovenox) 40 mg DAILY SC ; Start 09/03/16 at 09:00; Status Future Hold Gemfibrozil (Lopid) 600 mg BID PO Last administered on 09/17/16 21:15; Admin Dose 600 MG; Start 09/02/16 at 21:00 Magnesium Hydroxide (Milk Of Mag) 30 ml DAILY PRN PO CONSTIPATION; Start 09/02 at 17:00 Atorvastatin Calcium (Lipitor) 80 mg HS PO Last administered on 09/17/16 21:15 ; Admin Dose 80 MG; Start 09/02/16 at 21:00 Miscellaneous Information 1 ea NOTE XX ; Start 09/02/16 at 18:00 Glucose (Glutose) 15 gm Q15M PRN PO DECREASED GLUCOSE; Start 09/02/16 at 18:00 Glucose (Glutose) 22.5 gm Q15M PRN PO DECREASED GLUCOSE; Start 09/02/16 at 18: 00 Dextrose (D50w Syringe) 25 ml Q15M PRN IV DECREASED GLUCOSE; Start 09/02/16 at 18:00 Dextrose (D50w Syringe) 50 ml Q15M PRN IV DECREASED GLUCOSE; Start 09/02/16 at 18:00 Glucagon (Glucagen) 1 mg Q15M PRN IM DECREASED GLUCOSE; Start 09/02/16 at 18: 00 Glucose (Glutose) 15 gm Q15M PRN BUCCAL DECREASED GLUCOSE; Start 09/02/16 at 18:00 Hydralazine HCl (Apresoline) 10 mg Q4H PRN IV ELEVATED BLOOD PRESSURE Last administered on 09/16/16 09:26; Admin Dose 10 MG; Start 09/05/16 at 15:00 Amlodipine Besylate (Norvasc) 5 mg BID PO Last administered on 09/17/16 21:15; Admin Dose 5 MG; Start 09/06/16 at 11:30 Carvedilol (Coreg) 12.5 mg BID PO Last administered on 09/17/16 08:16; Admin Dose 12.5 MG; Start 09/06/16 at 11:30 Lisinopril 40 mg 40 mg DAILY PO Last administered on 09/17/16 08:16; Admin Dose 40 MG; Start 09/06/16 at 11:30 Dextrose/Sodium Chloride (D5-NS) 1,000 ml @ 75 mls/hr [id number] IV Last administered on 09/18/16 07:30; Admin Dose 75 MLS/HR; Start 09/07/16 at 02:00 Insulin Glargine (Lantus) 40 unit HS SC Last administered on 09/17/16 21:27; Admin Dose 40 UNIT; Start 09/07/16 at 21:00 Hydralazine HCl (Apresoline) 10 mg Q8 PO Last administered on 09/17/16 21:20; Admin Dose 10 MG; Start 09/09/16 at 09:00 Citalopram Hydrobromide (Celexa) 20 mg DAILY PO Last administered on 09/17/16 08:16; Admin Dose 20 MG; Start 09/10/16 at 09:00 Clonidine HCl (Catapres-Tts 2 Patch) 1 patch Oquendo@22 TRANSDERM Last administered on 09/15/16 22:05; Admin Dose 1 PATCH; Start 09/15/16 at 22:00 Guaifenesin (Robitussin Liquid Cup) 200 mg Q4H PRN PO SORE THROAT Last administered on 09/16/16 09:26; Admin Dose 200 MG; Start 09/16/16 at 09:00 Phenol (Cepastat Lozenge) 1 lozenge Q1H PRN [place] SORE THROAT; Start 09/16/16 at 09 :00 ALBINA HUERTA Sep 18, 2016 10:37
[2016-09-18] MEDS: GEMFIBROZIL 600 MG TAB PO SCH ×2 (12:06→21:00)
[2016-09-18] MEDS: CLOPIDOGREL 75 MG TAB PO SCH (12:07)
[2016-09-18] MEDS: AMLODIPINE 5 MG TAB PO SCH ×2 (12:07→21:00)
[2016-09-18] MEDS: ASPIRIN (EC) 325 MG TAB PO SCH (12:07)
[2016-09-18] MEDS: LISINOPRIL 20 MG TAB PO SCH (12:07)
[2016-09-18] MEDS: CITALOPRAM 20 MG TAB PO SCH (12:08)
[2016-09-18 19:22] VITALS: BP 176/84; RESP 20
[2016-09-18] MEDS: ATORVASTATIN 80 MG TAB PO SCH (21:00)
[2016-09-18] MEDS: hydrALAzine 20 MG INJ IV PRN (21:20)
[2016-09-18] MEDS: INSULIN GLARGINE [LANtus] 3 ML PEN SC SCH (22:58)
[2016-09-18 23:30] VITALS: BP 203/94
[2016-09-18] MEDS ORDERED: hydrALAzine 20 MG INJ IV ONE (23:50)
[2016-09-19] VITALS (9 sets, daily range): BP systolic 136–201; BP diastolic 63–93; PULSE 63–78; RESP 16–20
[2016-09-19] MEDS: morphine 2 MG INJ IV PRN ×3 (01:31→21:22)
[2016-09-19] MEDS: hydrALAzine 20 MG INJ IV PRN (01:54)
[2016-09-19] MEDS: DEXTROSE 5%-0.9% NACL 1,000 ML IV SCH ×3 (05:53→21:06)
[2016-09-19] MEDS: INSULIN ASPART [NOVOLOG] 3 ML PEN SC SCH ×7 (08:00→21:14)
[2016-09-19] MEDS: CITALOPRAM 20 MG TAB PO SCH (08:58)
[2016-09-19] MEDS: ASPIRIN (EC) 325 MG TAB PO SCH (08:58)
[2016-09-19] MEDS: CLOPIDOGREL 75 MG TAB PO SCH (08:59)
[2016-09-19] MEDS: GEMFIBROZIL 600 MG TAB PO SCH ×2 (08:59→21:08)
[2016-09-19] MEDS: AMLODIPINE 5 MG TAB PO SCH ×2 (08:59→21:09)
[2016-09-19] MEDS: LISINOPRIL 20 MG TAB PO SCH (09:00)
[2016-09-19] MEDS: FAMOTIDINE 20 MG INJ IV SCH ×2 (09:09→21:08)
--- NOTE | 2016-09-19 09:29 | PN ---
Date/Time of Note Date/Time of Note DATE: 09/19/16 TIME: 09:25 Assessment/Plan VTE Prophylaxis VTE Prophylaxis Intervention: SCD's Lines/Catheters IV Catheter Type (from [facility]): Peripheral IV Urinary Cath still in place: No Assessment/Plan Chief Complaint/Hosp Course Assessment/Plan: 66-year-old male coming in with left-sided weakness and facial droop with signs of positive stroke on the head CT. 1. CVA w/ left weakness - MRI of the brain shows: Acute non hemorrhagic left basal ganglia and right neural white matter infarcts. ECHO from 08/24 showed: Conclusions - EF 60%, stage I diastolic dysfunction , LVH - continue high-dose aspirin/plavix - statin - f/u neurology consult rec's, tx bp - f/u PT, OT and speech therapy rec's - ST given throat pain and difficulty swallowing pills - continue to work with speech therapy. Also have instructed nurse to crush pills and mix with food to help pt take meds. 2. Diabetes type II -sliding scale insulin and his home insulins, a1c 11.9 - diabetic education, FS presently stable 3. Hypertension essential - continue hydralazine IV prn > 160, continue home meds 4. Depressed mood - continue celexa 20 mg po daily 5. Peripheral vascular disease. Continue aspirin, Plavix for now. 6. Gastrointestinal prophylaxis. H2 mariano. 7. Deep venous thrombosis prophylaxis. SCD's dispo- f/u recs, PT, speech treatment, as per clinical course - needs SNF/Rehab - [facility] - f/u with CM on this. Problems: Subjective 24 Hr Interval Summary Free Text/Dictation Pt some elevated bp last night, but otherwise no acute events. Exam/Review of Systems Vital Signs Vitals Vital Signs Date Time Temp Pulse Resp B/P Pulse Ox O2 Delivery O2 Flow Rate FiO2 09/19/16 07:20 20 180/74 74 09/19/16 02:15 65 09/18/16 19:22 98.5 Intake and Output 09/18/16 09/18/16 09/19/16 15:00 23:00 07:00 Intake Total 400 ml 495 ml 940 ml Output Total 1300 ml 2000 ml Balance 400 ml -805 ml -1060 ml Exam Gen Elpidio: NAD, AAOx4, generalized malaise HEENT: left facial droop, PERRLA, EOMI, no carotid bruits present NECK: supple, no thyromegaly THORAX: symmetrical, no obvious deformities CV: S1S2, RRR, no M/G/R Lungs: CTAB no W/C/R/R Abd: soft, NT/ND, +BS, no rebound, no guarding, neg HSM EXT: left upper - increasing movement ability 1/5 and lower extremity with flaccid paralysis, right with normal ROM, no edema, onychomycosis present Neuro: CN II-IV, , VIII, IX, X, XI, XII grossly intact. V, VII abnormal, left sided flaccid paralysis Psych: fair mood and affect Skin: C/D/I Results Results 24 hrs Laboratory Tests Test 09/18/16 12:04 09/18/16 16:43 09/18/16 21:05 09/19/16 07:54 Bedside Glucose 136 138 136 131 Medications Medications Current Medications Acetaminophen (Tylenol Tab) 650 mg Q6H PRN PO PAIN LEVEL 1-3 OR FEVER; Start 09/02/16 at 17:00 Acetaminophen/ Hydrocodone Bitart ([place] (5/325)) 1 tab Q6H PRN PO MODERATE PAIN LEVEL 4-6; Start 09/02/16 at 17:00 Morphine Sulfate (morphine) 2 mg Q4H PRN IV SEVERE PAIN LEVEL 7-10 Last administered on 09/19/16 01:31; Admin Dose 2 MG; Start 09/02/16 at 17:00 Docusate Sodium (Colace) 100 mg Q12H PRN PO CONSTIPATION; Start 09/02/16 at 17 :00 Sodium Biphosphate/ Sodium Phosphate (Fleet Enema) 133 ml DAILY PRN [place] CONSTIPATION Last administered on 09/13/16at 00:31; Admin Dose 133 ML; Start at 17:00 Famotidine (Pepcid Iv) 20 mg Q12 IV Last administered on 09/19/16 09:09; Admin Dose 20 MG; Start 09/02/16 at 21:00 Ondansetron HCl (Zofran Inj) 4 mg Q6H PRN IV NAUSEA AND/OR VOMITING; Start at 17:00 Lorazepam (Ativan) 0.5 mg Q6H PRN IV ANXIETY Last administered on 12/27/16at 14 :15; Admin Dose 0.5 MG; Start 09/02/16 at 17:00 Nitroglycerin (Nitroglycerin (Sl Tab) 0.4 Mg) 1 tab Q5M PRN SL ANGINA; Start 09/02/16 at 17:00 Aspirin (Ecotrin) 325 mg DAILY PO Last administered on 09/19/16 08:58; Admin Dose 325 MG; Start 09/03/16 at 09:00 Clopidogrel Bisulfate (plaVIX) 75 mg DAILY PO Last administered on 09/19/16 08: 59; Admin Dose 75 MG; Start 09/03/16 at 09:00 Enoxaparin Sodium (Lovenox) 40 mg DAILY SC ; Start 09/03/16 at 09:00; Status Future Hold Gemfibrozil (Lopid) 600 mg BID PO Last administered on 09/19/16 08:59; Admin Dose 600 MG; Start 09/02/16 at 21:00 Magnesium Hydroxide (Milk Of Mag) 30 ml DAILY PRN PO CONSTIPATION; Start 09/02 at 17:00 Atorvastatin Calcium (Lipitor) 80 mg HS PO Last administered on 09/17/16 21:15 ; Admin Dose 80 MG; Start 09/02/16 at 21:00 Miscellaneous Information 1 ea NOTE XX ; Start 09/02/16 at 18:00 Glucose (Glutose) 15 gm Q15M PRN PO DECREASED GLUCOSE; Start 09/02/16 at 18:00 Glucose (Glutose) 22.5 gm Q15M PRN PO DECREASED GLUCOSE; Start 09/02/16 at 18: 00 Dextrose (D50w Syringe) 25 ml Q15M PRN IV DECREASED GLUCOSE; Start 09/02/16 at 18:00 Dextrose (D50w Syringe) 50 ml Q15M PRN IV DECREASED GLUCOSE; Start 09/02/16 at 18:00 Glucagon (Glucagen) 1 mg Q15M PRN IM DECREASED GLUCOSE; Start 09/02/16 at 18: 00 Glucose (Glutose) 15 gm Q15M PRN BUCCAL DECREASED GLUCOSE; Start 09/02/16 at 18:00 Hydralazine HCl (Apresoline) 10 mg Q4H PRN IV ELEVATED BLOOD PRESSURE Last administered on 09/19/16 01:54; Admin Dose 10 MG; Start 09/05/16 at 15:00 Amlodipine Besylate (Norvasc) 5 mg BID PO Last administered on 09/19/16 08:59; Admin Dose 5 MG; Start 09/06/16 at 11:30 Carvedilol (Coreg) 12.5 mg BID PO Last administered on 09/19/16 08:59; Admin Dose 12.5 MG; Start 09/06/16 at 11:30 Lisinopril 40 mg 40 mg DAILY PO Last administered on 09/19/16 09:00; Admin Dose 40 MG; Start 09/06/16 at 11:30 Dextrose/Sodium Chloride (D5-NS) 1,000 ml @ 75 mls/hr [id number] IV Last administered on 09/19/16 05:53; Admin Dose 75 MLS/HR; Start 09/07/16 at 02:00 Insulin Glargine (Lantus) 40 unit HS SC Last administered on 09/18/16 22:58; Admin Dose 40 UNIT; Start 09/07/16 at 21:00 Hydralazine HCl (Apresoline) 10 mg Q8 PO Last administered on 09/18/16 14:10; Admin Dose 10 MG; Start 09/09/16 at 09:00 Citalopram Hydrobromide (Celexa) 20 mg DAILY PO Last administered on 09/19/16 08:58; Admin Dose 20 MG; Start 09/10/16 at 09:00 Clonidine HCl (Catapres-Tts 2 Patch) 1 patch Oquendo@22 TRANSDERM Last administered on 09/15/16 22:05; Admin Dose 1 PATCH; Start 09/15/16 at 22:00 Guaifenesin (Robitussin Liquid Cup) 200 mg Q4H PRN PO SORE THROAT Last administered on 09/16/16 09:26; Admin Dose 200 MG; Start 09/16/16 at 09:00 Phenol (Cepastat Lozenge) 1 lozenge Q1H PRN [place] SORE THROAT; Start 09/16/16 at 09 :00 ALBINA HUERTA Sep 19, 2016 09:28
[2016-09-19] MEDS: ATORVASTATIN 80 MG TAB PO SCH (21:08)
[2016-09-19] MEDS: INSULIN GLARGINE [LANtus] 3 ML PEN SC SCH (21:15)
[2016-09-20] MEDS: morphine 2 MG INJ IV PRN ×2 (03:09→10:42)
[2016-09-20 07:23] VITALS: BP 155/72; RESP 18
[2016-09-20] MEDS: CLOPIDOGREL 75 MG TAB PO SCH (08:02)
[2016-09-20] MEDS: GEMFIBROZIL 600 MG TAB PO SCH ×2 (08:02→21:02)
[2016-09-20] MEDS: CITALOPRAM 20 MG TAB PO SCH (08:02)
[2016-09-20] MEDS: ASPIRIN (EC) 325 MG TAB PO SCH (08:02)
[2016-09-20] MEDS: LISINOPRIL 20 MG TAB PO SCH (08:03)
[2016-09-20] MEDS: FAMOTIDINE 20 MG INJ IV SCH ×2 (08:03→20:59)
[2016-09-20] MEDS: AMLODIPINE 5 MG TAB PO SCH ×2 (08:04→21:02)
[2016-09-20] MEDS: INSULIN ASPART [NOVOLOG] 3 ML PEN SC SCH ×7 (08:34→21:13)
--- NOTE | 2016-09-20 10:19 | PN ---
Date/Time of Note Date/Time of Note DATE: 09/20/16 TIME: 10:18 Assessment/Plan VTE Prophylaxis VTE Prophylaxis Intervention: SCD's Lines/Catheters IV C[facility]ter Type (from [facility]): Peripheral IV Urinary Cath still in place: No Assessment/Plan Chief Complaint/Hosp Course Assessment/Plan: 66-year-old male coming in with left-sided weakness and facial droop with signs of positive stroke on the head CT. 1. CVA w/ left weakness - MRI of the brain shows: Acute non hemorrhagic left basal ganglia and right neural white matter infarcts. ECHO from 08/24 showed: Conclusions - EF 60%, stage I diastolic dysfunction , LVH - continue high-dose aspirin/plavix - statin - f/u neurology consult rec's, tx bp - f/u PT, OT and speech therapy rec's - ST given throat pain and difficulty swallowing pills - continue to work with speech therapy. Also have instructed nurse to crush pills and mix with food to help pt take meds. 2. Diabetes type II -sliding scale insulin and his home insulins, a1c 11.9 - diabetic education, FS presently stable 3. Hypertension essential - continue hydralazine IV prn > 160, continue home meds 4. Depressed mood - continue celexa 20 mg po daily 5. Peripheral vascular disease. Continue aspirin, Plavix for now. 6. Gastrointestinal prophylaxis. H2 mariano. 7. Deep venous thrombosis prophylaxis. SCD's dispo- f/u recs, PT, speech treatment, as per clinical course - needs SNF/Rehab - [facility] - f/u with CM on this. Problems: Subjective 24 Hr Interval Summary Free Text/Dictation NO acute events overnight. Still waiting for placement. Bp stable presently. Exam/Review of Systems Vital Signs Vitals Vital Signs Date Time Temp Pulse Resp B/P Pulse Ox O2 Delivery O2 Flow Rate FiO2 09/20/16 07:23 97.7 62 18 155/72 96 09/19/16 21:03 Room Air Intake and Output 09/19/16 09/19/16 09/20/16 15:00 23:00 07:00 Intake Total 2060 ml 1070 ml Output Total 1700 ml 450 ml Balance 360 ml 620 ml Exam Gen Elpidio: NAD, AAOx4, generalized malaise HEENT: left facial droop, PERRLA, EOMI, no carotid bruits present NECK: supple, no thyromegaly THORAX: symmetrical, no obvious deformities CV: S1S2, RRR, no M/G/R Lungs: CTAB no W/C/R/R Abd: soft, NT/ND, +BS, no rebound, no guarding, neg HSM EXT: left upper - increasing movement ability 1/5 and lower extremity with flaccid paralysis, right with normal ROM, no edema, onychomycosis present Neuro: CN II-IV, , VIII, IX, X, XI, XII grossly intact. V, VII abnormal, left sided flaccid paralysis Psych: fair mood and affect Skin: C/D/I Results Results 24 hrs Laboratory Tests Test 09/19/16 11:45 09/19/16 16:55 09/19/16 20:59 09/20/16 07:46 Bedside Glucose 159 211 170 175 Medications Medications Current Medications Acetaminophen (Tylenol Tab) 650 mg Q6H PRN PO PAIN LEVEL 1-3 OR FEVER; Start 09/02/16 at 17:00 Acetaminophen/ Hydrocodone Bitart ([place] (5/325)) 1 tab Q6H PRN PO MODERATE PAIN LEVEL 4-6 Last administered on 09/20/16 08:04; Admin Dose 1 TAB; Start at 17:00 Morphine Sulfate (morphine) 2 mg Q4H PRN IV SEVERE PAIN LEVEL 7-10 Last administered on 09/20/16 03:09; Admin Dose 2 MG; Start 09/02/16 at 17:00 Docusate Sodium (Colace) 100 mg Q12H PRN PO CONSTIPATION; Start 09/02/16 at 17 :00 Sodium Biphosphate/ Sodium Phosphate (Fleet Enema) 133 ml DAILY PRN [place] CONSTIPATION Last administered on 09/13/16at 00:31; Admin Dose 133 ML; Start at 17:00 Famotidine (Pepcid Iv) 20 mg Q12 IV Last administered on 09/20/16 08:03; Admin Dose 20 MG; Start 09/02/16 at 21:00 Ondansetron HCl (Zofran Inj) 4 mg Q6H PRN IV NAUSEA AND/OR VOMITING; Start at 17:00 Lorazepam (Ativan) 0.5 mg Q6H PRN IV ANXIETY Last administered on 09/10/16at 14 :15; Admin Dose 0.5 MG; Start 09/02/16 at 17:00 Nitroglycerin (Nitroglycerin (Sl Tab) 0.4 Mg) 1 tab Q5M PRN SL ANGINA; Start 09/02/16 at 17:00 Aspirin (Ecotrin) 325 mg DAILY PO Last administered on 09/20/16 08:02; Admin Dose 325 MG; Start 09/03/16 at 09:00 Clopidogrel Bisulfate (plaVIX) 75 mg DAILY PO Last administered on 09/20/16 08: 02; Admin Dose 75 MG; Start 09/03/16 at 09:00 Enoxaparin Sodium (Lovenox) 40 mg DAILY SC ; Start 09/03/16 at 09:00; Status Future Hold Gemfibrozil (Lopid) 600 mg BID PO Last administered on 09/20/16 08:02; Admin Dose 600 MG; Start 09/02/16 at 21:00 Magnesium Hydroxide (Milk Of Mag) 30 ml DAILY PRN PO CONSTIPATION Last administered on 09/19/16 15:36; Admin Dose 30 ML; Start 09/02/16 at 17:00 Atorvastatin Calcium (Lipitor) 80 mg HS PO Last administered on 09/19/16 21:08 ; Admin Dose 80 MG; Start 09/02/16 at 21:00 Miscellaneous Information 1 ea NOTE XX ; Start 09/02/16 at 18:00 Glucose (Glutose) 15 gm Q15M PRN PO DECREASED GLUCOSE; Start 09/02/16 at 18:00 Glucose (Glutose) 22.5 gm Q15M PRN PO DECREASED GLUCOSE; Start 09/02/16 at 18: 00 Dextrose (D50w Syringe) 25 ml Q15M PRN IV DECREASED GLUCOSE; Start 09/02/16 at 18:00 Dextrose (D50w Syringe) 50 ml Q15M PRN IV DECREASED GLUCOSE; Start 09/02/16 at 18:00 Glucagon (Glucagen) 1 mg Q15M PRN IM DECREASED GLUCOSE; Start 09/02/16 at 18: 00 Glucose (Glutose) 15 gm Q15M PRN BUCCAL DECREASED GLUCOSE; Start 09/02/16 at 18:00 Hydralazine HCl (Apresoline) 10 mg Q4H PRN IV ELEVATED BLOOD PRESSURE Last administered on 09/19/16 01:54; Admin Dose 10 MG; Start 09/05/16 at 15:00 Amlodipine Besylate (Norvasc) 5 mg BID PO Last administered on 09/20/16 08:04; Admin Dose 5 MG; Start 09/06/16 at 11:30 Carvedilol (Coreg) 12.5 mg BID PO Last administered on 09/20/16 08:03; Admin Dose 12.5 MG; Start 09/06/16 at 11:30 Lisinopril 40 mg 40 mg DAILY PO Last administered on 09/20/16 08:03; Admin Dose 40 MG; Start 09/06/16 at 11:30 Dextrose/Sodium Chloride (D5-NS) 1,000 ml @ 75 mls/hr [id number] IV Last administered on 09/19/16 21:06; Admin Dose 75 MLS/HR; Start 09/07/16 at 02:00 Insulin Glargine (Lantus) 40 unit HS SC Last administered on 09/19/16 21:15; Admin Dose 40 UNIT; Start 09/07/16 at 21:00 Hydralazine HCl (Apresoline) 10 mg Q8 PO Last administered on 09/20/16 06:01; Admin Dose 10 MG; Start 09/09/16 at 09:00 Citalopram Hydrobromide (Celexa) 20 mg DAILY PO Last administered on 09/20/16 08:02; Admin Dose 20 MG; Start 09/10/16 at 09:00 Clonidine HCl (Catapres-Tts 2 Patch) 1 patch [place]@22 TRANSDERM Last administered on 09/15/16 22:05; Admin Dose 1 PATCH; Start 09/15/16 at 22:00 Guaifenesin (Robitussin Liquid Cup) 200 mg Q4H PRN PO SORE THROAT Last administered on 09/16/16 09:26; Admin Dose 200 MG; Start 09/16/16 at 09:00 Phenol (Cepastat Lozenge) 1 lozenge Q1H PRN [place] SORE THROAT; Start 09/16/16 at 09 :00 ALBINA HUERTA Sep 20, 2016 10:19
[2016-09-20] MEDS: DEXTROSE 5%-0.9% NACL 1,000 ML IV SCH ×2 (12:36→23:20)
[2016-09-20 14:57] VITALS: BP 117/57; PULSE 57
[2016-09-20 19:19] VITALS: BP 137/68; RESP 19
[2016-09-20] MEDS: ATORVASTATIN 80 MG TAB PO SCH (21:02)
[2016-09-20] MEDS: INSULIN GLARGINE [LANtus] 3 ML PEN SC SCH (21:17)
[2016-09-21] MEDS: morphine 2 MG INJ IV PRN ×4 (02:49→20:39)
[2016-09-21] MEDS: DEXTROSE 5%-0.9% NACL 1,000 ML IV SCH ×3 (05:13→22:16)
[2016-09-21 07:36] VITALS: BP 154/72; RESP 16
[2016-09-21] MEDS: INSULIN ASPART [NOVOLOG] 3 ML PEN SC SCH ×7 (08:00→20:53)
[2016-09-21] MEDS: LISINOPRIL 20 MG TAB PO SCH (09:00)
[2016-09-21] MEDS: CLOPIDOGREL 75 MG TAB PO SCH (09:01)
[2016-09-21] MEDS: GEMFIBROZIL 600 MG TAB PO SCH ×2 (09:01→20:40)
[2016-09-21] MEDS: CITALOPRAM 20 MG TAB PO SCH (09:01)
[2016-09-21] MEDS: FAMOTIDINE 20 MG INJ IV SCH ×2 (09:01→20:39)
[2016-09-21] MEDS: ASPIRIN (EC) 325 MG TAB PO SCH (09:01)
[2016-09-21] MEDS: AMLODIPINE 5 MG TAB PO SCH ×2 (09:01→20:41)
--- NOTE | 2016-09-21 13:13 | PN ---
Date/Time of Note Date/Time of Note DATE: 09/21/16 TIME: 13:12 Assessment/Plan VTE Prophylaxis VTE Prophylaxis Intervention: SCD's Lines/Catheters IV [facility] Type [facility]from [facility] Peripheral IV Urinary Cath still in place: No Assessment/Plan Chief Complaint/Hosp Course Assessment/Plan: 66-year-old male coming in with left-sided weakness and facial droop with signs of positive stroke on the head CT. 1. CVA w/ left weakness - MRI of the brain shows: Acute non hemorrhagic left basal ganglia and right neural white matter infarcts. ECHO from 08/24 showed: Conclusions - EF 60%, stage I diastolic dysfunction , LVH - continue high-dose aspirin/plavix - statin - f/u neurology consult rec's, tx bp - f/u PT, OT and speech therapy rec's - ST given throat pain and difficulty swallowing pills - continue to work with speech therapy. Also have instructed nurse to crush pills and mix with food to help pt take meds. 2. Diabetes type II -sliding scale insulin and his home insulins, a1c 11.9 - diabetic education, FS presently stable 3. Hypertension essential - continue hydralazine IV prn > 160, continue home meds 4. Depressed mood - continue celexa 20 mg po daily 5. Peripheral vascular disease. Continue aspirin, Plavix for now. 6. Gastrointestinal prophylaxis. H2 mariano. 7. Deep venous thrombosis prophylaxis. SCD's dispo- f/u recs, PT, speech treatment, as per clinical course - needs SNF/Rehab - [facility] - f/u with CM on this. Problems: Subjective 24 Hr Interval Summary Free Text/Dictation Pt taking his meds, per nursing. No acute events overnight. Exam/Review of Systems Vital Signs Vitals Vital Signs Date Time Temp Pulse Resp B/P Pulse Ox O2 Delivery O2 Flow Rate FiO2 09/21/16 07:36 98.1 65 16 154/72 96 09/19/16 21:03 Room Air Intake and Output 09/20/16 09/20/16 09/21/16 15:00 23:00 07:00 Intake Total 410 ml 1380 ml 940 ml Output Total 1800 ml 1000 ml Balance 410 ml -420 ml -60 ml Exam Gen Elpidio: NAD, AAOx4, generalized malaise HEENT: left facial droop, PERRLA, EOMI, no carotid bruits present NECK: supple, no thyromegaly THORAX: symmetrical, no obvious deformities CV: S1S2, RRR, no M/G/R Lungs: CTAB no W/C/R/R Abd: soft, NT/ND, +BS, no rebound, no guarding, neg HSM EXT: left upper - increasing movement ability 1/5 and lower extremity with flaccid paralysis, right with normal ROM, no edema, onychomycosis present Neuro: CN II-IV, , VIII, IX, X, XI, XII grossly intact. V, VII abnormal, left sided flaccid paralysis Psych: fair mood and affect Skin: C/D/I Results Results 24 hrs Laboratory Tests Test 09/20/16 17:17 09/20/16 20:56 09/21/16 02:44 09/21/16 08:26 Bedside Glucose 166 163 111 65 L Test 09/21/16 08:58 09/21/16 09:24 09/21/16 12:29 Bedside Glucose 98 116 158 Medications Medications Current Medications Acetaminophen (Tylenol Tab) 650 mg Q6H PRN PO PAIN LEVEL 1-3 OR FEVER; Start 09/02/16 at 17:00 Acetaminophen/ Hydrocodone Bitart ([place] (5/325)) 1 tab Q6H PRN PO MODERATE PAIN LEVEL 4-6 Last administered on 09/20/16 08:04; Admin Dose 1 TAB; Start at 17:00 Morphine Sulfate (morphine) 2 mg Q4H PRN IV SEVERE PAIN LEVEL 7-10 Last administered on 09/21/16 09:01; Admin Dose 2 MG; Start 09/02/16 at 17:00 Docusate Sodium (Colace) 100 mg Q12H PRN PO CONSTIPATION; Start 09/02/16 at 17 :00 Sodium Biphosphate/ Sodium Phosphate (Fleet Enema) [address] CONSTIPATION Last administered on 09/13/16at 00:31; Admin Dose 133 ML; Start at 17:00 Famotidine (Pepcid Iv) 20 mg Q12 IV Last administered on 09/21/16 09:01; Admin Dose 20 MG; Start 09/02/16 at 21:00 Ondansetron HCl (Zofran Inj) 4 mg Q6H PRN IV NAUSEA AND/OR VOMITING; Start at 17:00 Lorazepam (Ativan) 0.5 mg Q6H PRN IV ANXIETY Last administered on 09/10/16at 14 :15; Admin Dose 0.5 MG; Start 09/02/16 at 17:00 Nitroglycerin (Nitroglycerin (Sl Tab) 0.4 Mg) 1 tab Q5M PRN SL ANGINA; Start 09/02/16 at 17:00 Aspirin (Ecotrin) 325 mg DAILY PO Last administered on 09/21/16 09:01; Admin Dose 325 MG; Start 09/03/16 at 09:00 Clopidogrel Bisulfate (plaVIX) 75 mg DAILY PO Last administered on 09/21/16 09: 01; Admin Dose 75 MG; Start 09/03/16 at 09:00 Enoxaparin Sodium (Lovenox) 40 mg DAILY SC ; Start 09/03/16 at 09:00; Status Future Hold Gemfibrozil (Lopid) 600 mg BID PO Last administered on 09/21/16 09:01; Admin Dose 600 MG; Start 09/02/16 at 21:00 Magnesium Hydroxide (Milk Of Mag) 30 ml DAILY PRN PO CONSTIPATION Last administered on 09/19/16 15:36; Admin Dose 30 ML; Start 09/02/16 at 17:00 Atorvastatin Calcium (Lipitor) 80 mg HS PO Last administered on 09/20/16 21:02 ; Admin Dose 80 MG; Start 09/02/16 at 21:00 Miscellaneous Information 1 ea NOTE XX ; Start 09/02/16 at 18:00 Glucose (Glutose) 15 gm Q15M PRN PO DECREASED GLUCOSE; Start 09/02/16 at 18:00 Glucose (Glutose) 22.5 gm Q15M PRN PO DECREASED GLUCOSE; Start 09/02/16 at 18: 00 Dextrose (D50w Syringe) 25 ml Q15M PRN IV DECREASED GLUCOSE; Start 09/02/16 at 18:00 Dextrose (D50w Syringe) 50 ml Q15M PRN IV DECREASED GLUCOSE; Start 09/02/16 at 18:00 Glucagon (Glucagen) 1 mg Q15M PRN IM DECREASED GLUCOSE; Start 09/02/16 at 18: 00 Glucose (Glutose) 15 gm Q15M PRN BUCCAL DECREASED GLUCOSE; Start 09/02/16 at 18:00 Hydralazine HCl (Apresoline) 10 mg Q4H PRN IV ELEVATED BLOOD PRESSURE Last administered on 09/19/16 01:54; Admin Dose 10 MG; Start 09/05/16 at 15:00 Amlodipine Besylate (Norvasc) 5 mg BID PO Last administered on 09/21/16 09:01; Admin Dose 5 MG; Start 09/06/16 at 11:30 Carvedilol (Coreg) 12.5 mg BID PO Last administered on 09/21/16 09:01; Admin Dose 12.5 MG; Start 09/06/16 at 11:30 Lisinopril 40 mg 40 mg DAILY PO Last administered on 09/21/16 09:00; Admin Dose 40 MG; Start 09/06/16 at 11:30 Dextrose/Sodium Chloride (D5-NS) 1,000 ml @ 75 mls/hr [id number] IV Last administered on 09/21/16 05:13; Admin Dose 75 MLS/HR; Start 09/07/16 at 02:00 Insulin Glargine (Lantus) 40 unit HS SC Last administered on 09/20/16 21:17; Admin Dose 40 UNIT; Start 09/07/16 at 21:00 Hydralazine HCl (Apresoline) 10 mg Q8 PO Last administered on 09/21/16 05:22; Admin Dose 10 MG; Start 09/09/16 at 09:00 Citalopram Hydrobromide (Celexa) 20 mg DAILY PO Last administered on 09/21/16 09:01; Admin Dose 20 MG; Start 09/10/16 at 09:00 Clonidine HCl (Catapres-Tts 2 Patch) 1 patch [place]@22 TRANSDERM Last administered on 09/15/16 22:05; Admin Dose 1 PATCH; Start 09/15/16 at 22:00 Guaifenesin (Robitussin Liquid Cup) 200 mg Q4H PRN PO SORE THROAT Last administered on 09/16/16 09:26; Admin Dose 200 MG; Start 09/16/16 at 09:00 Phenol (Cepastat Lozenge) 1 lozenge Q1H PRN MT SORE THROAT; Start 09/16/16 at 09 :00 ALBINA HUERTA Sep 21, 2016 13:13
[2016-09-21 20:21] VITALS: BP 175/79; RESP 18
[2016-09-21] MEDS: ATORVASTATIN 80 MG TAB PO SCH (20:39)
[2016-09-21] MEDS: INSULIN GLARGINE [LANtus] 3 ML PEN SC SCH (20:56)
[2016-09-21 23:30] VITALS: BP 140/66; PULSE 61
[2016-09-22] MEDS: DEXTROSE 5%-0.9% NACL 1,000 ML IV SCH ×2 (02:00→14:17)
[2016-09-22] MEDS: morphine 2 MG INJ IV PRN ×6 (04:11→22:22)
[2016-09-22 07:40] VITALS: BP 138/70; RESP 16
[2016-09-22] MEDS: INSULIN ASPART [NOVOLOG] 3 ML PEN SC SCH ×7 (07:45→21:19)
[2016-09-22] MEDS: OXYMETAZOLINE 0.05% 15 ML NAS SPRAY NASAL SCH ×2 (08:19→21:05)
[2016-09-22] MEDS: CITALOPRAM 20 MG TAB PO SCH (08:20)
[2016-09-22] MEDS: CLOPIDOGREL 75 MG TAB PO SCH (08:20)
[2016-09-22] MEDS: AMLODIPINE 5 MG TAB PO SCH ×2 (08:20→21:06)
[2016-09-22] MEDS: LISINOPRIL 20 MG TAB PO SCH (08:20)
[2016-09-22] MEDS: ASPIRIN (EC) 325 MG TAB PO SCH (08:20)
[2016-09-22] MEDS: GEMFIBROZIL 600 MG TAB PO SCH ×2 (08:20→21:05)
[2016-09-22] MEDS: FAMOTIDINE 20 MG INJ IV SCH ×2 (08:30→21:05)
--- NOTE | 2016-09-22 09:03 | PN ---
Date/Time of Note Date/Time of Note DATE: 09/22/16 TIME: 09:02 Assessment/Plan VTE Prophylaxis VTE Prophylaxis Intervention: SCD's Lines/Catheters IV C[facility]ter Type (from [facility]): Peripheral IV Urinary Cath still in place: No Assessment/Plan Chief Complaint/Hosp Course Assessment/Plan: 66-year-old male coming in with left-sided weakness and facial droop with signs of positive stroke on the head CT. 1. CVA w/ left weakness - MRI of the brain shows: Acute non hemorrhagic left basal ganglia and right neural white matter infarcts. ECHO from 08/24 showed: Conclusions - EF 60%, stage I diastolic dysfunction , LVH - continue high-dose aspirin/plavix - statin - f/u neurology consult rec's, tx bp - f/u PT, OT and speech therapy rec's - ST given throat pain and difficulty swallowing pills - continue to work with speech therapy. Also have instructed nurse to crush pills and mix with food to help pt take meds. 2. Diabetes type II -sliding scale insulin and his home insulins, a1c 11.9 - diabetic education, FS presently stable 3. Hypertension essential - continue hydralazine IV prn > 160, continue home meds 4. Depressed mood - continue celexa 20 mg po daily 5. Peripheral vascular disease. Continue aspirin, Plavix for now. 6. Gastrointestinal prophylaxis. H2 mariano. 7. Deep venous thrombosis prophylaxis. SCD's dispo- f/u recs, PT, speech treatment, as per clinical course - needs SNF/Rehab - [facility] - f/u with CM on this. Problems: Subjective 24 Hr Interval Summary Free Text/Dictation NO acute events overnight. Exam/Review of Systems Vital Signs Vitals Vital Signs Date Time Temp Pulse Resp B/P Pulse Ox O2 Delivery O2 Flow Rate FiO2 09/22/16 07:40 98.1 57 16 138/70 97 09/19/16 21:03 Room Air Intake and Output 09/21/16 09/21/16 09/22/16 15:00 23:00 07:00 Intake Total 525 ml 1195 ml 800 ml Output Total 1900 ml Balance 525 ml -705 ml 800 ml Exam Gen Elpidio: NAD, AAOx4, generalized malaise HEENT: left facial droop, PERRLA, EOMI, no carotid bruits present NECK: supple, no thyromegaly THORAX: symmetrical, no obvious deformities CV: S1S2, RRR, no M/G/R Lungs: CTAB no W/C/R/R Abd: soft, NT/ND, +BS, no rebound, no guarding, neg HSM EXT: left upper - increasing movement ability 1/5 and lower extremity with flaccid paralysis, right with normal ROM, no edema, onychomycosis present Neuro: CN II-IV, , VIII, IX, X, XI, XII grossly intact. V, VII abnormal, left sided flaccid paralysis Psych: fair mood and affect Skin: C/D/I Results Results 24 hrs Laboratory Tests Test 09/21/16 09:24 09/21/16 12:29 09/21/16 16:49 09/21/16 20:52 Bedside Glucose 116 158 156 133 Test 09/22/16 07:44 Bedside Glucose 78 Medications Medications Current Medications Acetaminophen (Tylenol Tab) 650 mg Q6H PRN PO PAIN LEVEL 1-3 OR FEVER; Start 09/02/16 at 17:00 Acetaminophen/ Hydrocodone Bitart ([place] (5/325)) 1 tab Q6H PRN PO MODERATE PAIN LEVEL 4-6 Last administered on 09/20/16 08:04; Admin Dose 1 TAB; Start at 17:00 Morphine Sulfate (morphine) 2 mg Q4H PRN IV SEVERE PAIN LEVEL 7-10 Last administered on 09/22/16 08:21; Admin Dose 2 MG; Start 09/02/16 at 17:00 Docusate Sodium (Colace) 100 mg Q12H PRN PO CONSTIPATION; Start 09/02/16 at 17 :00 Sodium Biphosphate/ Sodium Phosphate (Fleet Enema) 133 ml DAILY PRN [place] CONSTIPATION Last administered on 09/13/16at 00:31; Admin Dose 133 ML; Start at 17:00 Famotidine (Pepcid Iv) 20 mg Q12 IV Last administered on 09/22/16 08:30; Admin Dose 20 MG; Start 09/02/16 at 21:00 Ondansetron HCl (Zofran Inj) 4 mg Q6H PRN IV NAUSEA AND/OR VOMITING; Start at 17:00 Lorazepam (Ativan) 0.5 mg Q6H PRN IV ANXIETY Last administered on 09/10/16at 14 :15; Admin Dose 0.5 MG; Start 09/02/16 at 17:00 Nitroglycerin (Nitroglycerin (Sl Tab) 0.4 Mg) 1 tab Q5M PRN SL ANGINA; Start 09/02/16 at 17:00 Aspirin (Ecotrin) 325 mg DAILY PO Last administered on 09/22/16 08:20; Admin Dose 325 MG; Start 09/03/16 at 09:00 Clopidogrel Bisulfate (plaVIX) 75 mg DAILY PO Last administered on 09/22/16 08: 20; Admin Dose 75 MG; Start 09/03/16 at 09:00 Enoxaparin Sodium (Lovenox) 40 mg DAILY SC ; Start 09/03/16 at 09:00; Status Future Hold Gemfibrozil (Lopid) 600 mg BID PO Last administered on 09/22/16 08:20; Admin Dose 600 MG; Start 09/02/16 at 21:00 Magnesium Hydroxide (Milk Of Mag) 30 ml DAILY PRN PO CONSTIPATION Last administered on 09/19/16 15:36; Admin Dose 30 ML; Start 09/02/16 at 17:00 Atorvastatin Calcium (Lipitor) 80 mg HS PO Last administered on 09/21/16 20:39 ; Admin Dose 80 MG; Start 09/02/16 at 21:00 Miscellaneous Information 1 ea NOTE XX ; Start 09/02/16 at 18:00 Glucose (Glutose) 15 gm Q15M PRN PO DECREASED GLUCOSE; Start 09/02/16 at 18:00 Glucose (Glutose) 22.5 gm Q15M PRN PO DECREASED GLUCOSE; Start 09/02/16 at 18: 00 Dextrose (D50w Syringe) 25 ml Q15M PRN IV DECREASED GLUCOSE; Start 09/02/16 at 18:00 Dextrose (D50w Syringe) 50 ml Q15M PRN IV DECREASED GLUCOSE; Start 09/02/16 at 18:00 Glucagon (Glucagen) 1 mg Q15M PRN IM DECREASED GLUCOSE; Start 09/02/16 at 18: 00 Glucose (Glutose) 15 gm Q15M PRN BUCCAL DECREASED GLUCOSE; Start 09/02/16 at 18:00 Hydralazine HCl (Apresoline) 10 mg Q4H PRN IV ELEVATED BLOOD PRESSURE Last administered on 09/19/16 01:54; Admin Dose 10 MG; Start 09/05/16 at 15:00 Amlodipine Besylate (Norvasc) 5 mg BID PO Last administered on 09/22/16 08:20; Admin Dose 5 MG; Start 09/06/16 at 11:30 Carvedilol (Coreg) 12.5 mg BID PO Last administered on 09/21/16 20:41; Admin Dose 12.5 MG; Start 09/06/16 at 11:30 Lisinopril 40 mg 40 mg DAILY PO Last administered on 09/22/16 08:20; Admin Dose 40 MG; Start 09/06/16 at 11:30 Dextrose/Sodium Chloride (D5-NS) 1,000 ml @ 75 mls/hr [id number] IV Last administered on 09/21/16 22:16; Admin Dose 75 MLS/HR; Start 09/07/16 at 02:00 Insulin Glargine (Lantus) 40 unit HS SC Last administered on 09/21/16 20:56; Admin Dose 40 UNIT; Start 09/07/16 at 21:00 Hydralazine HCl (Apresoline) 10 mg Q8 PO Last administered on 09/22/16 06:19; Admin Dose 10 MG; Start 09/09/16 at 09:00 Citalopram Hydrobromide (Celexa) 20 mg DAILY PO Last administered on 09/22/16 08:20; Admin Dose 20 MG; Start 09/10/16 at 09:00 Clonidine HCl (Catapres-Tts 2 Patch) 1 patch [place]@22 TRANSDERM Last administered on 09/15/16 22:05; Admin Dose 1 PATCH; Start 09/15/16 at 22:00 Guaifenesin (Robitussin Liquid Cup) 200 mg Q4H PRN PO SORE THROAT Last administered on 09/16/16 09:26; Admin Dose 200 MG; Start 09/16/16 at 09:00 Phenol (Cepastat Lozenge) 1 lozenge Q1H PRN MT SORE THROAT; Start 09/16/16 at 09 :00 Oxymetazoline HCl (Afrin [place]) 2 spray BID NASAL Last administered on 08:19; Admin Dose 2 SPRAY; Start 09/22/16 at 09:00 ALBINA HUERTA Sep 22, 2016 09:03
[2016-09-22 20:01] VITALS: BP 154/73; RESP 12
[2016-09-22] MEDS: ATORVASTATIN 80 MG TAB PO SCH (21:05)
[2016-09-22] MEDS: INSULIN GLARGINE [LANtus] 3 ML PEN SC SCH (21:17)
[2016-09-22] MEDS: CLONIDINE 0.2 MG/24 HR PATCH TRANSDERM SCH (22:22)
[2016-09-23] MEDS: morphine 2 MG INJ IV PRN ×3 (03:01→21:40)
[2016-09-23] MEDS: DEXTROSE 5%-0.9% NACL 1,000 ML IV SCH ×2 (05:09→18:00)
[2016-09-23 07:22] VITALS: BP 171/81; RESP 16
[2016-09-23] MEDS: INSULIN ASPART [NOVOLOG] 3 ML PEN SC SCH ×7 (08:00→21:51)
[2016-09-23] MEDS: CLOPIDOGREL 75 MG TAB PO SCH (08:33)
[2016-09-23] MEDS: AMLODIPINE 5 MG TAB PO SCH ×2 (08:33→21:40)
[2016-09-23] MEDS: FAMOTIDINE 20 MG INJ IV SCH ×2 (08:33→21:39)
[2016-09-23] MEDS: LISINOPRIL 20 MG TAB PO SCH (08:34)
[2016-09-23] MEDS: CITALOPRAM 20 MG TAB PO SCH (08:34)
[2016-09-23] MEDS: GEMFIBROZIL 600 MG TAB PO SCH ×2 (08:34→21:39)
[2016-09-23] MEDS: OXYMETAZOLINE 0.05% 15 ML NAS SPRAY NASAL SCH ×2 (08:34→21:41)
[2016-09-23] MEDS: ASPIRIN (EC) 325 MG TAB PO SCH (08:34)
[2016-09-23 10:00] VITALS: BP 145/68; PULSE 65
--- NOTE | 2016-09-23 14:59 | CONS ---
Date/Time of Note Date/Time of Note DATE: 09/23/16 TIME: 14:53 Consult Date/Type/Reason Admit Date/Time Sep 02, 2016 at 12:37 Initial Consult Date Type of Consultation: internal medicine Subjective Patient remained stable no new events Objective Vital Signs Date Time Temp Pulse Resp B/P Pulse Ox O2 Delivery O2 Flow Rate FiO2 09/23/16 10:00 65 145/68 09/23/16 07:22 98.3 16 99 09/19/16 21:03 Room Air Intake and Output 09/22/16 09/22/16 09/23/16 15:00 23:00 07:00 Intake Total 400 ml 585 ml 1255 ml Output Total 600 ml 2350 ml Balance 400 ml -15 ml -1095 ml Results/Medications Results 24 hrs Laboratory Tests Test 09/22/16 17:01 09/22/16 21:14 09/23/16 02:54 09/23/16 08:01 Bedside Glucose 147 214 92 73 Test 09/23/16 11:59 Bedside Glucose 78 Medications Current Medications Acetaminophen (Tylenol Tab) 650 mg Q6H PRN PO PAIN LEVEL 1-3 OR FEVER; Start 09/02/16 at 17:00 Acetaminophen/ Hydrocodone Bitart ([place] (5/325)) 1 tab Q6H PRN PO MODERATE PAIN LEVEL 4-6 Last administered on 09/20/16 08:04; Admin Dose 1 TAB; Start at 17:00 Morphine Sulfate (morphine) 2 mg Q4H PRN IV SEVERE PAIN LEVEL 7-10 Last administered on 09/23/16 03:01; Admin Dose 2 MG; Start 09/02/16 at 17:00 Docusate Sodium (Colace) 100 mg Q12H PRN PO CONSTIPATION; Start 09/02/16 at 17 :00 Sodium Biphosphate/ Sodium Phosphate (Fleet Enema) 133 ml DAILY PRN [place] CONSTIPATION Last administered on 09/13/16at 00:31; Admin Dose 133 ML; Start at 17:00 Famotidine (Pepcid Iv) 20 mg Q12 IV Last administered on 09/23/16 08:33; Admin Dose 20 MG; Start 09/02/16 at 21:00 Ondansetron HCl (Zofran Inj) 4 mg Q6H PRN IV NAUSEA AND/OR VOMITING; Start at 17:00 Lorazepam (Ativan) 0.5 mg Q6H PRN IV ANXIETY Last administered on 09/10/16at 14 :15; Admin Dose 0.5 MG; Start 09/02/16 at 17:00 Nitroglycerin (Nitroglycerin (Sl Tab) 0.4 Mg) 1 tab Q5M PRN SL ANGINA; Start 09/02/16 at 17:00 Aspirin (Ecotrin) 325 mg DAILY PO Last administered on 09/23/16 08:34; Admin Dose 325 MG; Start 09/03/16 at 09:00 Clopidogrel Bisulfate (plaVIX) 75 mg DAILY PO Last administered on 09/23/16 08: 33; Admin Dose 75 MG; Start 09/03/16 at 09:00 Enoxaparin Sodium (Lovenox) 40 mg DAILY SC ; Start 09/03/16 at 09:00; Status Future Hold Gemfibrozil (Lopid) 600 mg BID PO Last administered on 09/23/16 08:34; Admin Dose 600 MG; Start 09/02/16 at 21:00 Magnesium Hydroxide (Milk Of Mag) 30 ml DAILY PRN PO CONSTIPATION Last administered on 09/19/16 15:36; Admin Dose 30 ML; Start 09/02/16 at 17:00 Atorvastatin Calcium (Lipitor) 80 mg HS PO Last administered on 09/22/16 21:05 ; Admin Dose 80 MG; Start 09/02/16 at 21:00 Miscellaneous Information 1 ea NOTE XX ; Start 09/02/16 at 18:00 Glucose (Glutose) 15 gm Q15M PRN PO DECREASED GLUCOSE; Start 09/02/16 at 18:00 Glucose (Glutose) 22.5 gm Q15M PRN PO DECREASED GLUCOSE; Start 09/02/16 at 18: 00 Dextrose (D50w Syringe) 25 ml Q15M PRN IV DECREASED GLUCOSE; Start 09/02/16 at 18:00 Dextrose (D50w Syringe) 50 ml Q15M PRN IV DECREASED GLUCOSE; Start 09/02/16 at 18:00 Glucagon (Glucagen) 1 mg Q15M PRN IM DECREASED GLUCOSE; Start 09/02/16 at 18: 00 Glucose (Glutose) 15 gm Q15M PRN BUCCAL DECREASED GLUCOSE; Start 09/02/16 at 18:00 Hydralazine HCl (Apresoline) 10 mg Q4H PRN IV ELEVATED BLOOD PRESSURE Last administered on 09/19/16 01:54; Admin Dose 10 MG; Start 09/05/16 at 15:00 Amlodipine Besylate (Norvasc) 5 mg BID PO Last administered on 09/23/16 08:33; Admin Dose 5 MG; Start 09/06/16 at 11:30 Carvedilol (Coreg) 12.5 mg BID PO Last administered on 09/23/16 08:34; Admin Dose 12.5 MG; Start 09/06/16 at 11:30 Lisinopril 40 mg 40 mg DAILY PO Last administered on 09/23/16 08:34; Admin Dose 40 MG; Start 09/06/16 at 11:30 Dextrose/Sodium Chloride (D5-NS) 1,000 ml @ 75 mls/hr [id number] IV Last administered on 09/23/16 05:09; Admin Dose 75 MLS/HR; Start 09/07/16 at 02:00 Insulin Glargine (Lantus) 40 unit HS SC Last administered on 09/22/16 21:17; Admin Dose 40 UNIT; Start 09/07/16 at 21:00 Hydralazine HCl (Apresoline) 10 mg Q8 PO Last administered on 09/23/16 14:17; Admin Dose 10 MG; Start 09/09/16 at 09:00 Citalopram Hydrobromide (Celexa) 20 mg DAILY PO Last administered on 09/23/16 08:34; Admin Dose 20 MG; Start 09/10/16 at 09:00 Clonidine HCl (Catapres-Tts 2 Patch) 1 patch [place]@22 TRANSDERM Last administered on 09/22/16 22:22; Admin Dose 1 PATCH; Start 09/15/16 at 22:00 Guaifenesin (Robitussin Liquid Cup) 200 mg Q4H PRN PO SORE THROAT Last administered on 09/16/16 09:26; Admin Dose 200 MG; Start 09/16/16 at 09:00 Phenol (Cepastat Lozenge) 1 lozenge Q1H PRN MT SORE THROAT; Start 09/16/16 at 09 :00 Oxymetazoline HCl (Afrin [place]) 2 spray BID NASAL Last administered on t 08:34; Admin Dose 2 SPRAY; Start 09/22/16 at 09:00 Assessment/Plan Chief Complaint/Hosp Course Assessment/Plan: 66-year-old male coming in with left-sided weakness and facial droop with signs of positive stroke on the head CT. 1. CVA w/ left weakness - MRI of the brain shows: Acute non hemorrhagic left basal ganglia and right neural white matter infarcts. ECHO from 08/24 showed: Conclusions - EF 60%, stage I diastolic dysfunction , LVH - continue high-dose aspirin/plavix - statin - f/u neurology consult rec's, tx bp - f/u PT, OT and speech therapy rec's - ST given throat pain and difficulty swallowing pills - continue to work with speech therapy. Also have instructed nurse to crush pills and mix with food to help pt take meds. 2. Diabetes type II -sliding scale insulin and his home insulins, a1c 11.9 - diabetic education, low blood sugars noted I will decrease Lantus from 40-30 units 3. Hypertension essential - continue hydralazine IV prn > 160, continue home meds 4. Depressed mood - continue celexa 20 mg po daily 5. Peripheral vascular disease. Continue aspirin, Plavix for now. 6. Gastrointestinal prophylaxis. H2 mariano. 7. Deep venous thrombosis prophylaxis. SCD's Disposition Discussed with case management pending placement Problems: ED MCNAIR MD, [facility] Sep 23, 2016 14:59
[2016-09-23] MEDS ORDERED: INSULIN GLARGINE [LANtus] 3 ML PEN SC SCH (21:00)
[2016-09-23 21:09] VITALS: BP 142/66; RESP 14
[2016-09-23] MEDS: ATORVASTATIN 80 MG TAB PO SCH (21:39)
[2016-09-24] MEDS: morphine 2 MG INJ IV PRN ×3 (03:34→12:26)
[2016-09-24 06:31] LABS: BASOPHILS % 0.5 % (0.0-2.0); EOSINOPHILS # 0.2 10^3/ul (0.0-0.5); EOSINOPHILS % 2.8 % (0.0-7.0); HEMATOCRIT 36.5 % (42.0-52.0); LYMPHOCYTES # 1.8 10^3/ul (0.8-2.9); LYMPHOCYTES % 26.1 % (15.0-51.0); MEAN CORPUSCULAR HEMOGLOBIN 27.8 pg (29.0-33.0); MEAN CORPUSCULAR HGB CONC 32.7 g/dl (32.0-37.0); MEAN CORPUSCULAR VOLUME 84.9 fl (82.0-101.0); MEAN PLATELET VOLUME 11.7 fl (7.4-10.4); MONOCYTE # 0.7 10^3/ul (0.3-0.9); MONOCYTES % 10.3 % (0.0-11.0); NEUTROPHIL # 4.1 10^3/ul (1.6-7.5); NEUTROPHILS % 60.3 % (39.0-77.0); PLATELET COUNT 218 10^3/UL (140-440); UNCORRECTED WBC 6.8 10^3/ul (4.8-10.8); WHITE BLOOD COUNT 6.8 10^3/ul (4.8-10.8)
[2016-09-24] MEDS: DEXTROSE 5%-0.9% NACL 1,000 ML IV SCH ×3 (06:31→17:42)
[2016-09-24 06:36] LABS: CONDITION 1
[2016-09-24 06:41] LABS: POTASSIUM 4.2 mmol/L (3.5-5.1)
[2016-09-24 06:43] LABS: CREATININE 0.71 mg/dl (0.61-1.24)
[2016-09-24 06:44] LABS: CALCIUM 8.9 mg/dl (8.4-10.2); MAGNESIUM 1.9 mg/dl (1.7-2.5)
[2016-09-24 07:13] VITALS: BP 139/68; RESP 18
[2016-09-24] MEDS: INSULIN ASPART [NOVOLOG] 3 ML PEN SC SCH ×7 (08:19→21:00)
[2016-09-24] MEDS: CITALOPRAM 20 MG TAB PO SCH (08:21)
[2016-09-24] MEDS: AMLODIPINE 5 MG TAB PO SCH ×2 (08:22→21:16)
[2016-09-24] MEDS: CLOPIDOGREL 75 MG TAB PO SCH (08:22)
[2016-09-24] MEDS: LISINOPRIL 20 MG TAB PO SCH (08:22)
[2016-09-24] MEDS: ASPIRIN (EC) 325 MG TAB PO SCH (08:22)
[2016-09-24] MEDS: GEMFIBROZIL 600 MG TAB PO SCH ×2 (08:22→21:16)
[2016-09-24] MEDS: OXYMETAZOLINE 0.05% 15 ML NAS SPRAY NASAL SCH ×2 (08:23→21:15)
[2016-09-24] MEDS: FAMOTIDINE 20 MG INJ IV SCH ×2 (08:24→21:15)
--- NOTE | 2016-09-24 11:46 | PN ---
Date/Time of Note Date/Time of Note DATE: 09/24/16 TIME: 11:36 Assessment/Plan VTE Prophylaxis VTE Prophylaxis Intervention: LMWH Lines/Catheters IV Catheter Type (from [facility]): Peripheral IV Urinary Cath still in place: No Assessment/Plan Assessment/Plan 66-year-old male coming in with left-sided weakness and facial droop with signs of positive stroke on the head CT. 1. CVA w/ left weakness - MRI of the brain shows: Acute non hemorrhagic left basal ganglia and right neural white matter infarcts. ECHO from 08/24 showed: Conclusions - EF 60%, stage I diastolic dysfunction , LVH - continue high-dose aspirin/plavix - statin - f/u neurology consult rec's, tx bp - f/u PT, OT and speech therapy rec's - ST given throat pain and difficulty swallowing pills - continue to work with speech therapy. Also have instructed nurse to crush pills and mix with food to help pt take meds. 2. Diabetes type II -sliding scale insulin and his home insulins, a1c 11.9 - diabetic education, adjust medications 3. Hypertension essential - continue hydralazine IV prn > 160, continue home meds 4. Depressed mood - continue celexa 20 mg po daily 5. Peripheral vascular disease. Continue aspirin, Plavix for now. 6. Gastrointestinal prophylaxis. H2 mariano. 7. Deep venous thrombosis prophylaxis. SCD's dispo- f/u recs, PT, speech treatment, as per clinical course - needs SNF/Rehab - [facility] - f/u with CM on this. Subjective 24 Hr Interval Summary Free Text/Dictation no event Exam/Review of Systems Vital Signs Vitals Vital Signs Date Time Temp Pulse Resp B/P Pulse Ox O2 Delivery O2 Flow Rate FiO2 09/24/16 07:13 97.1 62 18 139/68 99 Intake and Output 09/23/16 09/23/16 09/24/16 15:00 23:00 07:00 Intake Total 225 ml 1395 ml 900 ml Output Total 1400 ml 300 ml Balance 225 ml -5 ml 600 ml Exam Constitutional: alert, oriented Psych: no complaints Head: atraumatic, normocephalic Eyes: EOMI, nl conjunctiva, nl lids, nl sclera ENMT: No mucosa pink and moist, No nl external ears & nose, No nl lips & teeth , No nl nasal mucosa & septum Neck: non-tender, supple Respiratory: clear to auscultation, normal air movement Cardiovascular: nl pulses, regular rate and rhythm Gastrointestinal: nl liver, spleen, non-tender, soft Genitourinary - Male: nl penis, nl scrotum Musculoskeletal: nl extremities to inspection, nl gait and stance Extremities: normal pulses 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, nl mental status, nl speech, other (0/5 LUE/ LLE, Barbinski sign on left) Lymph: nl lymph nodes Results Result Diagram: 09/24/1613 09/24/16512 Results 24 hrs Laboratory Tests Test 09/23/16 11:59 09/23/16 17:29 09/23/16 21:38 09/24/16 03:03 Bedside Glucose 78 201 250 H 265 H Test 09/24/16 05:13 09/24/16 07:44 Anion Gap 17 H Basophils # 0.0 Basophils % 0.5 Blood Morphology Comment Blood Urea Nitrogen 11 Calcium Level 8.9 Carbon Dioxide Level 27 Chloride Level 101 Creatinine 0.71 Eosinophils # 0.2 Eosinophils % 2.8 Glucose Level 251 H Hematocrit 36.5 L Hemoglobin 12.0 L Lymphocytes # 1.8 Lymphocytes % 26.1 Magnesium Level 1.9 Mean Corpuscular Hemoglobin 27.8 L Mean Corpuscular Hemoglobin Concent 32.7 Mean Corpuscular Volume 84.9 Mean Platelet Volume 11.7 H Monocytes # 0.7 Monocytes % 10.3 Neutrophils # 4.1 Neutrophils % 60.3 Nucleated Red Blood Cells # 0.0 Nucleated Red Blood Cells % 0.0 Phosphorus Level 4.0 Platelet Count 218 Potassium Level 4.2 Red Blood Count 4.30 L Red Cell Distribution Width 13.0 Sodium Level 141 White Blood Count 6.8 Bedside Glucose 209 Medications Medications Current Medications Acetaminophen (Tylenol Tab) 650 mg Q6H PRN PO PAIN LEVEL 1-3 OR FEVER; Start 09/02/16 at 17:00 Acetaminophen/ Hydrocodone Bitart ([place] (5/325)) 1 tab Q6H PRN PO MODERATE PAIN LEVEL 4-6 Last administered on 09/20/16 08:04; Admin Dose 1 TAB; Start at 17:00 Morphine Sulfate (morphine) 2 mg Q4H PRN IV SEVERE PAIN LEVEL 7-10 Last administered on 09/24/16 08:24; Admin Dose 2 MG; Start 09/02/16 at 17:00 Docusate Sodium (Colace) 100 mg Q12H PRN PO CONSTIPATION; Start 09/02/16 at 17 :00 Sodium Biphosphate/ Sodium Phosphate (Fleet Enema) 133 ml DAILY PRN [place] CONSTIPATION Last administered on 09/13/16at 00:31; Admin Dose 133 ML; Start at 17:00 Famotidine (Pepcid Iv) 20 mg Q12 IV Last administered on 09/24/16 08:24; Admin Dose 20 MG; Start 09/02/16 at 21:00 Ondansetron HCl (Zofran Inj) 4 mg Q6H PRN IV NAUSEA AND/OR VOMITING; Start at 17:00 Lorazepam (Ativan) 0.5 mg Q6H PRN IV ANXIETY Last administered on 09/10/16at 14 :15; Admin Dose 0.5 MG; Start 09/02/16 at 17:00 Nitroglycerin (Nitroglycerin (Sl Tab) 0.4 Mg) 1 tab Q5M PRN SL ANGINA; Start 09/02/16 at 17:00 Aspirin (Ecotrin) 325 mg DAILY PO Last administered on 09/24/16 08:22; Admin Dose 325 MG; Start 09/03/16 at 09:00 Clopidogrel Bisulfate (plaVIX) 75 mg DAILY PO Last administered on 09/24/16 08 :22; Admin Dose 75 MG; Start 09/03/16 at 09:00 Enoxaparin Sodium (Lovenox) 40 mg DAILY SC ; Start 09/03/16 at 09:00; Status Future Hold Gemfibrozil (Lopid) 600 mg BID PO Last administered on 09/24/16 08:22; Admin Dose 600 MG; Start 09/02/16 at 21:00 Magnesium Hydroxide (Milk Of Mag) 30 ml DAILY PRN PO CONSTIPATION Last administered on 09/19/16 15:36; Admin Dose 30 ML; Start 09/02/16 at 17:00 Atorvastatin Calcium (Lipitor) 80 mg HS PO Last administered on 09/23/16 21:39 ; Admin Dose 80 MG; Start 09/02/16 at 21:00 Miscellaneous Information 1 ea NOTE XX ; Start 09/02/16 at 18:00 Glucose (Glutose) 15 gm Q15M PRN PO DECREASED GLUCOSE; Start 09/02/16 at 18:00 Glucose (Glutose) 22.5 gm Q15M PRN PO DECREASED GLUCOSE; Start 09/02/16 at 18: 00 Dextrose (D50w Syringe) 25 ml Q15M PRN IV DECREASED GLUCOSE; Start 09/02/16 at 18:00 Dextrose (D50w Syringe) 50 ml Q15M PRN IV DECREASED GLUCOSE; Start 09/02/16 at 18:00 Glucagon (Glucagen) 1 mg Q15M PRN IM DECREASED GLUCOSE; Start 09/02/16 at 18: 00 Glucose (Glutose) 15 gm Q15M PRN BUCCAL DECREASED GLUCOSE; Start 09/02/16 at 18:00 Hydralazine HCl (Apresoline) 10 mg Q4H PRN IV ELEVATED BLOOD PRESSURE Last administered on 09/19/16 01:54; Admin Dose 10 MG; Start 09/05/16 at 15:00 Amlodipine Besylate (Norvasc) 5 mg BID PO Last administered on 09/24/16 08:22 ; Admin Dose 5 MG; Start 09/06/16 at 11:30 Carvedilol (Coreg) 12.5 mg BID PO Last administered on 09/24/16 08:23; Admin Dose 12.5 MG; Start 09/06/16 at 11:30 Lisinopril 40 mg 40 mg DAILY PO Last administered on 09/24/16 08:22; Admin Dose 40 MG; Start 09/06/16 at 11:30 Dextrose/Sodium Chloride (D5-NS) 1,000 ml @ 75 mls/hr [id number] IV Last administered on 09/24/16 06:31; Admin Dose 75 MLS/HR; Start 09/07/16 at 02:00 Hydralazine HCl (Apresoline) 10 mg Q8 PO Last administered on 09/24/16 06:28; Admin Dose 10 MG; Start 09/09/16 at 09:00 Citalopram Hydrobromide (Celexa) 20 mg DAILY PO Last administered on 09/24/16 08:21; Admin Dose 20 MG; Start 09/10/16 at 09:00 Clonidine HCl (Catapres-Tts 2 Patch) 1 patch [place]@22 TRANSDERM Last administered on 09/22/16 22:22; Admin Dose 1 PATCH; Start 09/15/16 at 22:00 Guaifenesin (Robitussin Liquid Cup) 200 mg Q4H PRN PO SORE THROAT Last administered on 09/16/16 09:26; Admin Dose 200 MG; Start 09/16/16 at 09:00 Phenol (Cepastat Lozenge) 1 lozenge Q1H PRN MT SORE THROAT; Start 09/16/16 at 09 :00 Oxymetazoline HCl (Afrin [place]) 2 spray BID NASAL Last administered on 08:23; Admin Dose 2 SPRAY; Start 09/22/16 at 09:00 Insulin Glargine (Lantus) 30 unit HS SC Last administered on 09/23/16 21:50; Admin Dose 30 UNIT; Start 09/23/16 at 21:00 JOAQUÍN BROWER MD Sep 24, 2016 11:46
[2016-09-24 19:00] VITALS: BP 121/67; RESP 19
[2016-09-24] MEDS ORDERED: INSULIN GLARGINE [LANtus] 3 ML PEN SC SCH (21:00)
[2016-09-24] MEDS: ATORVASTATIN 80 MG TAB PO SCH (21:16)
[2016-09-25] MEDS: morphine 2 MG INJ IV PRN (03:20)
[2016-09-25] MEDS: DEXTROSE 5%-0.9% NACL 1,000 ML IV SCH (06:07)
[2016-09-25 07:25] VITALS: BP 150/68; RESP 18
[2016-09-25] MEDS: ASPIRIN (EC) 325 MG TAB PO SCH (09:17)
[2016-09-25] MEDS: LISINOPRIL 20 MG TAB PO SCH (09:18)
[2016-09-25] MEDS: CITALOPRAM 20 MG TAB PO SCH (09:18)
[2016-09-25] MEDS: FAMOTIDINE 20 MG INJ IV SCH (09:18)
[2016-09-25] MEDS: GEMFIBROZIL 600 MG TAB PO SCH (09:18)
[2016-09-25] MEDS: CLOPIDOGREL 75 MG TAB PO SCH (09:18)
[2016-09-25] MEDS: AMLODIPINE 5 MG TAB PO SCH (09:18)
[2016-09-25] MEDS: OXYMETAZOLINE 0.05% 15 ML NAS SPRAY NASAL SCH (09:19)
[2016-09-25] MEDS: INSULIN ASPART [NOVOLOG] 3 ML PEN SC SCH ×6 (10:18→18:00)
--- NOTE | 2016-09-25 10:59 | DS ---
Date/Time of Note Date/Time of Note DATE: 09/25/16 TIME: 10:51 Discharge Summary Admission/Discharge Info Admit Date/Time Sep 02, 2016 at 12:37 Discharge Date/Time Final Diagnosis 1. CVA w/ left weakness - MRI of the brain shows: Acute non hemorrhagic left basal ganglia and right neural white matter infarcts. ECHO from 08/24 showed: Conclusions - EF 60%, stage I diastolic dysfunction , LVH - continue high-dose aspirin/plavix - statin - f/u PT, OT and speech therapy 2. Diabetes type II -sliding scale insulin and his home insulins, a1c 11.9 - diabetic education, adjust medications 3. Hypertension essential - continue hydralazine IV prn > 160, continue home meds 4. Depressed mood - continue celexa 20 mg po daily 5. Peripheral vascular disease. Continue statin, aspirin, Plavix for now. 6. Gastrointestinal prophylaxis. H2 mariano. 7. Deep venous thrombosis prophylaxis. SCD's Patient Condition: Stable Hx of Present Illness A 66-year-old male, past medical history of diabetes type 2, hypertension, high cholesterol, peripheral vascular disease, insomnia who was recently at our hospital here from 08/24 to 08/25/2016. He presents with left-sided weakness symptoms today. However, symptoms began last night. He also had some facial droop, and family became concerned, and they brought him in by ambulance. Apparently his friends had found him on the floor with the facial droop and left -sided weakness symptoms of both of the upper and lower extremities. When the paramedics arrived, his sugars were found to be elevated as well. The patient is a poor historian, so full review of systems could not be obtained, but when he came into the ER today, he had a head CT performed, and it showed new focal area of hypoattenuation in the right pres[place] radiata suspicious of acute or recent infarct. Hospital Course physical exam with left side muscle strength 0/5 with Barbinski sign and left side facial drooping. MRI of the brain shows: Acute non hemorrhagic left basal ganglia and right neural white matter infarcts. ECHO from 08/24 showed: Conclusions - EF 60%, stage I diastolic dysfunction, LVH. Unremarkable carotid ultrasound study. Patient is treated with aspirin, plavix, statin, PT/OT and speech therapy. Neurologically stable, blood pressure is under controlled. Patient will be transferred to SNF for continuation of rehab. He will follow up with PCP and neurology after SNF. Home Meds Active Scripts Sennosides* (Senna Lax*) 8.6 Mg Tablet, 1 TAB PO BID for CONSTIPATION, #30 TAB Prov:AMORYOHANA HARDY 11/27/15 Oxycodone Hcl* (IR) (Roxicodone*) 5 Mg Tab, 5 MG PO Q4H Y for PAIN LEVEL 6-10, # 60 TAB Prov:YOHANA CHINCHILLA 11/27/15 Magnesium Hydroxide* (Duran' MOM*) 30 Ml Susp, 30 ML PO DAILY Y for CONSTIPATION, #30 Prov:YOHANA CHINCHILLA 11/27/15 Lisinopril* (Zestril*) 20 Mg Tab, 40 MG PO DAILY, #60 TAB Prov:AMORYOHANA HARDY 11/27/15 Insulin Glargine* (Lantus*) 100 Unit/Ml Soln, 45 UNIT SC HS, #10 ML Prov:YOHANA CHINCHILLA 11/27/15 Insulin Aspart* (Novolog Insulin Pen*) 100 Unit/Ml Soln, 16 UNIT SC WITH MEALS, #10 ML Prov:AMORYOHANA HARDY 11/27/15 Gemfibrozil* (Lopid*) 600 Mg Tab, 600 MG PO BID, #60 TAB Prov:AMORRossana 11/27/15 Enoxaparin Sodium* (Enoxaparin Sodium*) 40 Mg/0.4 Ml Soln, 40 MG SC DAILY for 60 Days Prov:YOHANA CHINCHILLA 11/27/15 Clopidogrel Bisulfate (Clopidogrel) 75 Mg Tab, 75 MG PO DAILY, #60 TAB Prov:YOHANA CHINCHILLA 11/27/15 Carvedilol* (Coreg*) 12.5 Mg Tab, 12.5 MG PO BID for 60 Days, TAB Prov:YOHANA CHINCHILLA 11/27/15 Atorvastatin Calcium* (Atorvastatin Calcium*) 20 Mg Tab, 20 MG PO HS, #60 TAB Prov:YOHANA CHINCHILLA 11/27/15 Amlodipine Besylate* (Norvasc*) 5 Mg Tab, 5 MG PO BID, #60 TAB Prov:YOHANA CHINCHILLA 11/27/15 Aspirin (Aspirin) 81 Mg Chew, 81 MG PO DAILY, #60 TAB Prov:YOHANA CHINCHILLA 11/27/15 Follow-up Plan PCP one week Neurology one week Pending Labs Laboratory Tests Test 09/24/16 11:45 09/24/16 16:51 09/24/16 21:04 09/25/16 08:23 Bedside Glucose 128mg/dL (70-220) 124mg/dL (70-220) 122mg/dL (70-220) 202mg/dL (70-220) JOAQUÍN BROWER MD Sep 25, 2016 10:59
[2016-09-25] MEDS ORDERED: ATOR80TA75 PO (11:04)
[2016-09-25] MEDS ORDERED: CITA20TA11 PO (11:04)
[2016-09-25] MEDS ORDERED: LANT3I SC (11:04)
[2016-09-25] MEDS ORDERED: NOVO3I SC ×2 (11:04)
[2016-09-25] MEDS ORDERED: HYDR-3670 PO (11:04)
[2016-09-26 07:25] VITALS: BP 126/71; RESP 18
== END 2016-09-25 19:20 | DRG 65 ==
LOC: E/R 10:06 → TEL 12:37 → MS2 09-09 19:22
PROVIDERS: ADMIT Family Medicine; ATTEND Family Medicine
DX: I63.9 Cerebral infarction, unspecified (principal); G81.94 Hemiplegia, unspecified affecting left nondominant side; E11.51 Type 2 diabetes mellitus with diabetic peripheral angiopathy without gangrene; I10 Essential (primary) hypertension; F32.9 Major depressive disorder, single episode, unspecified; G47.00 Insomnia, unspecified; E78.5 Hyperlipidemia, unspecified; R29.810 Facial weakness; R07.0 Pain in throat; R13.10 Dysphagia, unspecified; Z79.4 Long term (current) use of insulin
CPT/HCPCS: 36415; 70450; 70551; 71010; 74230; 80048; 80053; 80061; 81001; 81003; 82962; 83036; 83735; 84100; 84439; 84443; 84484; 85025; 85610; 85730; 87081; 92526; 92610; 92611; 93005; 93880; 96374; 96375; 97001; 97003; 97110; 97530; 97535; G0479; J0360; J1630; J1815; J2060; J2270; J3480; J7042

== ENCOUNTER 2016-10-25 06:50 | Inpatient (IN) | payer OTHER ==
[~2016-10-25] VITALS: Ht 171.4 cm; Wt 90.0 kg
[~2016-10-25 06:50] MED LIST changes: -ASP81 PO; +ASPI81TA3 PO; +ATOR80TA75 PO; +CITA20TA11 PO; +HYDR-3670 PO; -OXY5 PO; +OXYC-481 PO
[2016-10-25] MEDS ORDERED: PANTOPRAZOLE 40 MG INJ IV STA (07:06)
[2016-10-25 07:27] LABS: ADD SCAN DIFF NO
[2016-10-25 07:31] LABS: BASOPHILS % 0.1 % (0.0-2.0); EOSINOPHILS # 0.3 10^3/ul (0.0-0.5); EOSINOPHILS % 3.5 % (0.0-7.0); HEMATOCRIT 33.8 % (42.0-52.0); HEMOGLOBIN 10.9 g/dl (14.0-18.0); LYMPHOCYTES # 2.2 10^3/ul (0.8-2.9); LYMPHOCYTES % 29.3 % (15.0-51.0); MEAN CORPUSCULAR HEMOGLOBIN 27.9 pg (29.0-33.0); MEAN CORPUSCULAR HGB CONC 32.2 g/dl (32.0-37.0); MEAN CORPUSCULAR VOLUME 86.7 fl (82.0-101.0); MEAN PLATELET VOLUME 11.9 fl (7.4-10.4); MONOCYTE # 0.7 10^3/ul (0.3-0.9); MONOCYTES % 9.7 % (0.0-11.0); NEUTROPHIL # 4.2 10^3/ul (1.6-7.5); NEUTROPHILS % 57.1 % (39.0-77.0); PLATELET COUNT 210 10^3/UL (140-415); WHITE BLOOD COUNT 7.3 10^3/ul (4.8-10.8)
--- NOTE | 2016-10-25 07:45 | RADRPT ---
PROCEDURE: XR Chest. CLINICAL INDICATION: Possible upper GI bleed. TECHNIQUE: Single frontal chest x-ray. COMPARISON: Chest radiograph 09/02/2016. FINDINGS: The cardiomediastinal silhouette is unremarkable. Aortic atherosclerotic vascular calcifications are identified. Mild left basilar atelectasis. No pneumothorax, pleural effusion or consolidation is seen. No acute osseous abnormality is noted. IMPRESSION: 1. No acute cardiopulmonary abnormality. 2. Mild left basilar atelectasis. 3. Aortic atherosclerosis. RPTAT: QQ .Naida Buckner MD, Date Time Electronically viewed and signed by .Naida Buckner MD, on 10/25/2016 07:45 .N/
[2016-10-25 07:54] LABS: INR 0.89; PT RATIO 0.9
[2016-10-25 07:55] LABS: CHLORIDE 102 mmol/L (97-110); PARTIAL THROMBOPLASTIN TIME 32.4 Sec (25.0-35.0); POTASSIUM 4.2 mmol/L (3.5-5.1); SODIUM 143 mmol/L (135-144)
[2016-10-25 07:58] LABS: ALANINE AMINOTRANSFERASE 28 IU/L (13-69); ALBUMIN/GLOBULIN RATIO 1.21; ALKALINE PHOSPHATASE 155 IU/L (42-121); ANION GAP 17 (8-16); ASPARTATE AMINO TRANSFERASE 26 IU/L (15-46); BLOOD UREA NITROGEN 19 mg/dl (7-20); CARBON DIOXIDE 28 mmol/L (21-31); GLUCOSE 208 mg/dl (70-220); TOTAL PROTEIN 7.3 g/dl (6.1-8.1)
[2016-10-25 07:59] LABS: CALCIUM 9.2 mg/dl (8.4-10.2)
[2016-10-25 08:07] LABS: TROPONIN-I < 0.012 ng/ml (0.00-0.12)
--- NOTE | 2016-10-25 10:24 | ERA ---
ER Documentation Chief Complaint Date/Time DATE: 10/25/16 TIME: 0701 Chief Complaint episode of coughing up blood HPI 66-year-old male referred to the emergency department from his care facility for evaluation of either coughing up blood or throwing up blood. No significant information is on the transfer paperwork. Patient is a somewhat difficult historian. He occasionally states that he is coughing up blood and occasionally states that he is vomiting blood. He does not seem to understand the difference between the 2 questions. He does have fresh blood on his gown. He does report abdominal discomfort but has limited details about this discomfort. Patient reports no shortness of breath. Apparently this all started today although this is still somewhat unclear. ROS All systems reviewed and are negative except as per history of present illness. Medications Home Meds Active Scripts Insulin Aspart* (Novolog Insulin Pen*) 100 Unit/Ml Soln, 0 UNIT SC AC MEALS AND BEDTIME for 30 Days Prov:JOAQUÍN BROWER MD 09/25/16 Insulin Glargine* (Lantus*) 100 Unit/Ml Soln, 32 UNIT SC HS for 30 Days Prov:JOAQUÍN BROWER MD 09/25/16 Insulin Aspart* (Novolog Insulin Pen*) 100 Unit/Ml Soln, 10 UNIT SC WITH MEALS for 30 Days Prov:JOAQUÍN BROWER MD 09/25/16 Hydralazine Hcl* (Hydralazine Hcl*) 10 Mg Tablet, 10 MG PO Q8 for 90 Days, TAB Prov:JOAQUÍN BROWER MD 09/25/16 Citalopram Hydrobromide* (Celexa*) 20 Mg Tablet, 20 MG PO DAILY for 30 Days, TAB Prov:JOAQUÍN BROWER MD 09/25/16 Atorvastatin* (Atorvastatin*) 80 Mg Tablet, 80 MG PO HS for 30 Days, TAB Prov:JOAQUÍN BROWER MD 09/25/16 Sennosides* (Senna Lax*) 8.6 Mg Tablet, 1 TAB PO BID for CONSTIPATION, #30 TAB Prov:YOHANA CHINCHILLA 11/27/15 Oxycodone Hcl* (IR) (Roxicodone*) 5 Mg Tab, 5 MG PO Q4H Y for PAIN LEVEL 6-10, # 60 TAB Prov:YOHANA CHINCHILLA 11/27/15 Magnesium Hydroxide* (Duran' MOM*) 30 Ml Susp, 30 ML PO DAILY Y for CONSTIPATION, #30 Prov:YOHANA CHINCHILLA 11/27/15 Lisinopril* (Zestril*) 20 Mg Tab, 40 MG PO DAILY, #60 TAB Prov:YOHANA CHINCHILLA 11/27/15 Gemfibrozil* (Lopid*) 600 Mg Tab, 600 MG PO BID, #60 TAB Prov:AMORYOHANA 11/27/15 Enoxaparin Sodium* (Enoxaparin Sodium*) 40 Mg/0.4 Ml Soln, 40 MG SC DAILY for 60 Days Prov:YOHANA CHINCHILLA 11/27/15 Clopidogrel Bisulfate (Clopidogrel) 75 Mg Tab, 75 MG PO DAILY, #60 TAB Prov:YOHANA CHINCHILLA 11/27/15 Carvedilol* (Coreg*) 12.5 Mg Tab, 12.5 MG PO BID for 60 Days, TAB Prov:YOHANA CHINCHILLA 11/27/15 Atorvastatin Calcium* (Atorvastatin Calcium*) 20 Mg Tab, 20 MG PO HS, #60 TAB Prov:AMORYOHANA 11/27/15 Amlodipine Besylate* (Norvasc*) 5 Mg Tab, 5 MG PO BID, #60 TAB Prov:YOHANA CHINCHILLA 11/27/15 Aspirin (Aspirin) 81 Mg Chew, 81 MG PO DAILY, #60 TAB Prov:YOHANA CHINCHILLA 11/27/15 Allergies Allergies: Coded Allergies: No Known Allergy (Unverified , 09/02/16) PMhx/Soc History of Surgery: No Anesthesia Reaction: No Hx Neurological Disorder: Yes (STROKE , LT SIDE WEAKNESS ) Hx Respiratory Disorders: No Hx Cardiac Disorders: Yes (HTN) Hx Psychiatric Problems: No Hx Miscellaneous Medical Probl: Yes (DM< htn, high cholesterol, PVD,insomia) Hx Alcohol Use: No (DENIES) Hx Substance Use: No (DENIES) Hx Tobacco Use: No (FORMER SMOKER) Smoking Status: Former smoker FmHx Noncontributory for chief complaint Physical Exam Vitals Vital Signs Date Time Temp Pulse Resp B/P Pulse Ox O2 Delivery O2 Flow Rate FiO2 10/25/16 09:45 74 18 142/75 98 Nasal Cannula 2.0 10/25/16 07:24 Nasal Cannula 2 10/25/16 07:10 83.0 83 20 145/81 100 Physical Exam GENERAL: Patient is a frail elderly chronically ill-appearing gentleman. He has fresh blood on his gown. HEENT: Pupils equal, round, and reactive to light. EOMI. There is no scleral icterus. NECK: C-spine is soft and supple, there is no meningismus. There is no cervical lymphadenopathy. LUNGS: Clear to auscultation bilaterally. There are no rales, wheezes or rhonchi. HEART: Regular rate and rhythm, no murmurs, clicks, rubs or gallops. ABDOMEN: Soft, non-tender, non-distended. There are bowel sounds in all four quadrants. No rebound or guarding. EXTREMITIES: There is no peripheral cyanosis or edema. No focal swelling or erythema. NEURO: Patient has any aphasia with difficulty speaking. He has left upper and lower extremity weakness noted. SKIN: There is no apparent rash or petechiae. HEME/LYMPHATIC: There is no evidence of excessive bruising or lymphedema. PSYCHIATRIC: The patient does not appear anxious or depressed. Result Diagram: 10/25/1615 10/25/16 0715 Results 24 hrs Laboratory Tests Test 10/25/16 07:15 Activated Partial Thromboplast Time 32.4Sec Alanine Aminotransferase (ALT/SGPT) 28IU/L Albumin 4.0g/dl Albumin/Globulin Ratio 1.21 Alkaline Phosphatase 155IU/L Anion Gap 17 Aspartate Amino Transf (AST/SGOT) 26IU/L Basophils # 0.010^3/ul Basophils % 0.1% Blood Urea Nitrogen 19mg/dl Calcium Level 9.2mg/dl Carbon Dioxide Level 28mmol/L Chloride Level 102mmol/L Creatinine 0.70mg/dl Direct Bilirubin 0.00mg/dl Eosinophils # 0.310^3/ul Eosinophils % 3.5% Globulin 3.30g/dl Glucose Level 208mg/dl Hematocrit 33.8% Hemoglobin 10.9g/dl INR International Normalized Ratio 0.89 Indirect Bilirubin 0.0mg/dl Lymphocytes # 2.210^3/ul Lymphocytes % 29.3% Mean Corpuscular Hemoglobin 27.9pg Mean Corpuscular Hemoglobin Concent 32.2g/dl Mean Corpuscular Volume 86.7fl Mean Platelet Volume 11.9fl Monocytes # 0.710^3/ul Monocytes % 9.7% Neutrophils # 4.210^3/ul Neutrophils % 57.1% Nucleated Red Blood Cells # 0.010^3/ul Nucleated Red Blood Cells % 0.0/100WBC Platelet Count 45929^3/UL Potassium Level 4.2mmol/L Prothrombin Time 12.0Sec Prothrombin Time Ratio 0.9 Red Blood Count 3.9010^6/ul Red Cell Distribution Width 13.0% Sodium Level 143mmol/L Total Bilirubin 0.0mg/dl Total Protein 7.3g/dl Troponin I < 0.012ng/ml White Blood Count 7.310^3/ul Current Medications Medications (Trade) Dose Ordered Sig/[place] Route PRN Reason Start Time Stop Time Status Last Admin Dose Admin Pantoprazole (Protonix Iv) 40 mg ONCE STAT IV 10/25/16 07:06 10/25/16 07:08 DC 10/25/16 07:19 Procedures/MDM Patient was taken to a room, seen and evaluated. Comfort measures were initiated. Diagnostic tests were ordered and reviewed. 3 LEAD RHYTHM STRIP: Normal sinus rhythm without ectopy EK lead EKG reviewed by myself: Normal Sinus Rhythm Normal [place] and intervals No ST elevation, depression, or T wave inversion Impression: Normal EKG RADIOLOGY: reviewed with the radiologist CONSULTATION: hospitalist was notified for admission REEVALUATION: Patient is remained hemo-dynamically stable with no further active bleeding noted in the emergency department. MEDICAL DECISION MAKIN-year-old male status post stroke on multiple blood thinners including Lovenox and Plavix presents to the emergency department with what I suspect is a GI bleed. Patient's hemoglobin is borderline but does not require emergent transfusion at this time as the patient appears to be comfortable and hemodynamically stable. However, patient is obviously high risk because of these anticoagulants and his hemoglobin. He will require admission to the hospital for further investigation of the cause of this likely bleeding which I suspect is GI and unlikely to be pulmonary in etiology, especially in light of his normal chest x-ray. Departure Diagnosis: Primary Impression: Upper GI bleed Additional Impressions: Anemia Anticoagulation adequate with anticoagulant therapy HOPE HORVATH Oct 25, 2016 10:24
[2016-10-25 11:25] LABS: HEMATOCRIT 33.3 % (42.0-52.0); HEMOGLOBIN 10.9 g/dl (14.0-18.0)
[2016-10-25] MEDS ORDERED: GLUCAGON 1 MG INJ IM PRN (12:00)
[2016-10-25] MEDS ORDERED: GLUCOSE GEL 15 GRAM TUBE BUCCAL PRN (12:00)
[2016-10-25] MEDS ORDERED: DEXTROSE 50% 50 ML SYRINGE IV PRN ×2 (12:00)
[2016-10-25] MEDS ORDERED: GLUCOSE GEL 15 GRAM TUBE PO PRN ×2 (12:00)
[2016-10-25] MEDS: INSULIN ASPART [NOVOLOG] 3 ML PEN SC SCH ×3 (12:14→22:11)
--- NOTE | 2016-10-25 12:18 | CONS ---
Date/Time of Note Date/Time of Note DATE: 10/25/16 TIME: 12:10 Assessment/Plan Assessment/Plan Additional Assessment/Plan Upper GI bleed * Evaluate PUD versus other etiologies * Epistaxis versus hemoptysis * Continue PPI therapy * Patient declines EGD evaluation * CT abdomen * Stool OB Diabetes Hypertension History of CVA * CVA w/ left weakness - MRI of the brain shows: Acute non hemorrhagic left basal ganglia and right neural white matter infarcts. From admission from to 09-25-16 Further recommendations depend on clinical course Consultation Date/Type/Reason Admit Date/Time Type of Consultation: Gastroenterology Reason for Consultation Hemoptysis Hx of Present Illness 66-year-old male with reports of coughing up blood, increased chest congestion, and phlegm production for 1 day. Patient denies abdominal pain, nausea, vomiting, diarrhea with chief complaints. Patient reports previous episode roughly a week ago; however, he states blood was scant. Patient states he had a CVA 4 weeks ago that resulted in complete left-sided weakness and numbness. Patient also has past medical history of hypertension and diabetes. Patient denies alcohol consumption. Patient also reports constipation for the last 3 days. At bedside, patient declines endoscopic evaluation of possible upper GI bleed secondary to his fear of anesthesia. Social History Smoking Status: Former smoker Exam/Review of Systems Vital Signs Vitals Vital Signs Date Time Temp Pulse Resp B/P Pulse Ox O2 Delivery O2 Flow Rate FiO2 10/25/16 09:45 74 18 142/75 98 Nasal Cannula 2.0 10/25/16 07:10 83.0 Exam Constitutional: alert, oriented, well developed Psych: nl mood/affect Head: normocephalic Eyes: EOMI, nl conjunctiva, nl lids, nl sclera ENMT: nl external ears & nose (Dried blood and nostril), nl lips & teeth, nl nasal mucosa & septum Respiratory: normal air movement Cardiovascular: regular rate and rhythm Gastrointestinal: non-tender, soft Musculoskeletal: nl extremities to inspection 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 Results Result Diagram: 10/25/16 1115 10/25/16 0715 Results 24 hrs Laboratory Tests Test 10/25/16 07:15 10/25/16 11:15 Activated Partial Thromboplast Time 32.4 Alanine Aminotransferase (ALT/SGPT) 28 Albumin 4.0 Albumin/Globulin Ratio 1.21 Alkaline Phosphatase 155 H Anion Gap 17 H Aspartate Amino Transf (AST/SGOT) 26 Basophils # 0.0 Basophils % 0.1 Blood Urea Nitrogen 19 Calcium Level 9.2 Carbon Dioxide Level 28 Chloride Level 102 Creatinine 0.70 Direct Bilirubin 0.00 Eosinophils # 0.3 Eosinophils % 3.5 Globulin 3.30 H Glucose Level 208 Hematocrit 33.8 L 33.3 L Hemoglobin 10.9 L 10.9 L INR International Normalized Ratio 0.89 Indirect Bilirubin 0.0 Lymphocytes # 2.2 Lymphocytes % 29.3 Mean Corpuscular Hemoglobin 27.9 L Mean Corpuscular Hemoglobin Concent 32.2 Mean Corpuscular Volume 86.7 Mean Platelet Volume 11.9 H Monocytes # 0.7 Monocytes % 9.7 Neutrophils # 4.2 Neutrophils % 57.1 Nucleated Red Blood Cells # 0.0 Nucleated Red Blood Cells % 0.0 Platelet Count 210 Potassium Level 4.2 Prothrombin Time 12.0 L Prothrombin Time Ratio 0.9 Red Blood Count 3.90 L Red Cell Distribution Width 13.0 Sodium Level 143 Total Bilirubin 0.0 L Total Protein 7.3 Troponin I < 0.012 White Blood Count 7.3 Medications Medications Current Medications Amlodipine Besylate (Norvasc) 5 mg BID PO ; Start 10/25/16 at 21:00; Status UNV Aspirin (Aspirin) 81 mg DAILY PO ; Start 10/26/16 at 09:00; Status UNV Atorvastatin Calcium (Lipitor) 80 mg HS PO ; Start 10/25/16 at 21:00; Status UNV Carvedilol (Coreg) 12.5 mg BID PO ; Start 10/25/16 at 21:00; Status UNV Citalopram Hydrobromide (Celexa) 20 mg DAILY PO ; Start 10/26/16 at 09:00; Status UNV Gemfibrozil (Lopid) 600 mg BID PO ; Start 10/25/16 at 21:00; Status UNV Insulin Glargine (Lantus) 25 unit HS SC ; Start 10/25/16 at 21:00; Status UNV Lisinopril (Zestril) 40 mg DAILY PO ; Start 10/26/16 at 09:00; Status UNV Insulin Aspart NOVOLOG *MILD* ALGORI... Q6 SC ; Start 10/25/16 at 12:00 Dextrose/Sodium Chloride (D5-1/2ns) 1,000 ml @ 75 mls/hr [id number] IV ; Start 07/01 at 11:00; Status UNV Miscellaneous Information 1 ea NOTE XX ; Start 10/25/16 at 12:00 Glucose (Glutose) 15 gm Q15M PRN PO DECREASED GLUCOSE; Start 10/25/16 at 12:00 Glucose (Glutose) 22.5 gm Q15M PRN PO DECREASED GLUCOSE; Start 10/25/16 at 12: 00 Dextrose (D50w Syringe) 25 ml Q15M PRN IV DECREASED GLUCOSE; Start 10/25/16 at 12:00 Dextrose (D50w Syringe) 50 ml Q15M PRN IV DECREASED GLUCOSE; Start 10/25/16 at 12:00 Glucagon (Glucagen) 1 mg Q15M PRN IM DECREASED GLUCOSE; Start 10/25/16 at 12:00 Glucose (Glutose) 15 gm Q15M PRN BUCCAL DECREASED GLUCOSE; Start 10/25/16 at 12 :00 Pantoprazole (Protonix Iv) 40 mg BID@06,18 IV ; Start 10/25/16 at 18:00; Status UNV DAX CARMONA MD Oct 25, 2016 12:18
[2016-10-25] MEDS ORDERED: morphine 4 MG/ML VIAL IV STA (12:28)
[2016-10-25] MEDS: POLYETHYLENE GLYCOL 17 GM PACKET PO SCH (12:30)
[2016-10-25] MEDS: DEXTROSE 5%-0.45% NACL 1,000 ML IV SCH (12:33)
[2016-10-25 15:00] VITALS: TEMP 99.8
[2016-10-25 18:14] VITALS: BP 181/96; PULSE 76; RESP 18
[2016-10-25] MEDS: PANTOPRAZOLE 40 MG INJ IV SCH (18:29)
[2016-10-25] MEDS ORDERED: hydrALAzine 20 MG INJ IV PRN ×2 (18:30→19:00)
[2016-10-25 18:33] VITALS: PULSE 66
[2016-10-25 18:58] LABS: HEMOGLOBIN 11.8 g/dl (14.0-18.0)
[2016-10-25] MEDS ORDERED: hydrALAzine 20 MG INJ IV ONE (19:00)
[2016-10-25 20:00] VITALS: BP 174/79; RESP 20
[2016-10-25 20:30] VITALS: PULSE 72
[2016-10-25] MEDS ORDERED: ATORVASTATIN 80 MG TAB PO SCH (21:00)
[2016-10-25] MEDS ORDERED: INSULIN GLARGINE [LANtus] 3 ML PEN SC SCH (21:00)
[2016-10-25] MEDS: morphine 2 MG INJ IV PRN (22:06)
[2016-10-25] MEDS: AMLODIPINE 5 MG TAB PO SCH (22:09)
[2016-10-25] MEDS: GEMFIBROZIL 600 MG TAB PO SCH (22:09)
[2016-10-25 23:36] LABS: HEMATOCRIT 33.5 % (42.0-52.0); HEMOGLOBIN 11.1 g/dl (14.0-18.0)
[2016-10-26] VITALS (9 sets, daily range): BP systolic 135–174; BP diastolic 63–81; PULSE 62–82; RESP 19–20; Ht 171.4 cm; Wt 90.0 kg
[2016-10-26] MEDS: DEXTROSE 5%-0.45% NACL 1,000 ML IV SCH ×2 (00:20→06:20)
[2016-10-26] MEDS ORDERED: ZOLPIDEM 5 MG TAB PO PRN (01:00)
[2016-10-26] MEDS: PANTOPRAZOLE 40 MG INJ IV SCH (05:38)
[2016-10-26] MEDS: morphine 2 MG INJ IV PRN ×3 (05:42→14:05)
[2016-10-26] MEDS: INSULIN ASPART [NOVOLOG] 3 ML PEN SC SCH ×2 (05:49→12:37)
--- NOTE | 2016-10-26 07:19 | HP ---
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 CHIEF COMPLAINT: Hematemesis. HISTORY OF PRESENT ILLNESS: This is a pleasant 66-year-old gentleman with a past medical history of a CVA with left-sided residual, with MRI of the brain on the previous admission showing an acute no nhemorrhagic left basal ganglia and right neural white matter infarct, diabetes mellitus type 2, ess ential hypertension, depression, peripheral vascular disease, who was discharged from [facility] on 09/25/2016 to a longterm facility and the patient has been obtaining physic al therapy at the longterm facility, although this morning the patient was found to have heme temesis and vomiting blood. Upon arrival to ER, the patient's hemoglobin was 10.9, hematocrit 33.8, sodium 143, potassium 4.2. The patient was placed on IV Protonix in the course of the emergency ro om, and since his arrival to ER, he has not had any more evidence of hematemesis. Gastroenterology was consulted in the course of the ER and the patient was seen and evaluated by GI and he has refuse d upper endoscopy or any other procedure. At this time, the patient denies any chest pain, shortnes s of breath, nausea, vomiting, diarrhea. No headaches, dizziness, lightheadedness. No change in vi sual acuity, no diplopia, no abdominal pain, no nausea, but he had an episode of vomiting. No heat or cold intolerance. No neck pain, no restricted range of motion of the upper and lower extremities , except he has chronic left upper and lower extremity weakness from his prior cerebrovascular accid ent. The other 12 review of systems have been found to be negative. PAST MEDICAL AND SURGICAL HISTORY: As above per HPI. MEDICATIONS: 1. Amlodipine 5 mg. 2. Aspirin 81 mg. 3. Lipitor 80 mg. 4. Coreg 12.5 mg. 5. Celexa 20 mg. 6. Plavix 75 mg. 7. Lovenox 40 mg. 8. Gemfibrozil 600 mg b.i.d. 9. Hydralazine 10 mg. 10. Insulin 10 units with meals. 11. Lantus 32 units q.p.m. 12. Lisinopril 40 mg. 13. Magnesium hydroxide 30 mL. 14. Oxycodone 5 mg. 15. Senna 8.6 mg. ALLERGIES: NO KNOWN DRUG ALLERGIES. FAMILY HISTORY: Positive for diabetes mellitus, hypertension and dyslipidemia. SOCIAL HISTORY: A former smoker. 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 No history of drug abuse. REVIEW OF SYSTEMS: As above per HPI. Otherwise 12 review of systems was found to be negative. PHYSICAL EXAMINATION: VITAL SIGNS: Temperature 98.4, pulse 76, respirations 18, blood pressure 181/96, oxygen 96% on room air. GENERAL APPEARANCE: The patient is lying in bed comfortably, without any acute distress. He is matilde ke, alert, and oriented. He is able to answer my questions properly. EYES AND ENT: Conjunctivae and lids are normal. Pupils are normal. Extraocular is normal. Hearin g is grossly normal. Lips are normal. Oral mucosa is mildly dry. NECK: Supple. Trachea is midline. No lymphadenopathy. RESPIRATORY: Respiratory effort is normal. Clear to auscultation bilaterally. CARDIOVASCULAR: Normal S1, S2. Regular rhythm and rate. No murmur, no bruits, no edema. Peripher al pulses and radial pulses are palpable. Cap refill is normal. CHEST: Normal expansion of thorax during inspiration. GASTROINTESTINAL: Abdomen is soft, nontender, nondistended. Bowel sounds present. No guarding, no rebound. GENITOURINARY: Deferred. MUSCULOSKELETAL: Upper right extremity and right lower extremity are within normal limits. Full ra nge of motion. Strength 5/5. Left upper extremity strength is 3/5, left lower extremity is 3/5. D ifficulty moving his left lower extremity, although his right extremity he is able to move when ther e is no resistance. NEUROLOGIC: Cranial nerves II through XII are grossly intact. He is awake, alert, oriented. LABORATORY WORK AND IMAGING: Sodium 143, potassium 4.2, chloride 102, bicarbonate 28, BUN 19, creat inine 0.70, glucose 208, calcium 9.2. LFTs all within normal limits. WBC 7.3, hemoglobin 10.9, hem atocrit 33.8, platelets 210. ASSESSMENT AND PLAN: 1. Upper gastrointestinal bleed. This is likely secondary to the patient being placed on aspirin, P lavix and Lovenox. At this time, I will hold the Lovenox and place the patient on IV PPI. Gastroen terology has been consulted, although the patient has refused an upper endoscopy. Will continue to hold Lovenox and Plavix at this time and continue the PPI. Will follow up hemoglobin and hematocrit . 2. Anemia, secondary to above. We will follow hemoglobin and hematocrit every 6 hours. If hemoglo bin is less than 7.5, we will transfuse. 3. Essential hypertension, moderately uncontrolled. The patient has been restarted on his home med ications of lisinopril, Coreg and hydralazine. Also will place the patient on hydralazine p.r.n. fo r a systolic blood pressure greater than 165. 4. Dyslipidemia. Continue statin. 5. Major depression. Continue Celexa. 6. History of a cerebrovascular accident, with left-sided residual. Continue aspirin and statin. Continue to monitor the patient's blood pressure. 7. Diabetes mellitus. Patient placed on insulin sliding scale. Continue Lantus and premeal insuli n. 8. For deep venous thrombosis prophylaxis at this time will place the patient on SCDs. Refrain fro m using any pharmacologic DVT prophylaxis secondary to possible upper gastrointestinal bleed. I hig hly recommend when the patient is discharged he should be only placed on aspirin and Plavix and not on any anticoagulation. 9. For gastrointestinal prophylaxis, on a proton pump inhibitor. 10. We will continue to monitor the patient closely. Further recommendations, management and treat ment as per clinical course. Total amount of time spent for the evaluation of patient and admission workup was 45 minutes. Dictated By: YAMILETH GEORGE MD PN/NTS Conf#: [id number] DID#: [id number]
[2016-10-26 08:48] LABS: ADD SCAN DIFF NO
[2016-10-26 08:51] LABS: BASOPHILS % 0.2 % (0.0-2.0); EOSINOPHILS # 0.2 10^3/ul (0.0-0.5); EOSINOPHILS % 3.7 % (0.0-7.0); HEMATOCRIT 32.2 % (42.0-52.0); LYMPHOCYTES # 2.2 10^3/ul (0.8-2.9); LYMPHOCYTES % 36.1 % (15.0-51.0); MEAN CORPUSCULAR HEMOGLOBIN 28.6 pg (29.0-33.0); MEAN CORPUSCULAR HGB CONC 34.2 g/dl (32.0-37.0); MEAN CORPUSCULAR VOLUME 83.4 fl (82.0-101.0); MEAN PLATELET VOLUME 10.4 fl (7.4-10.4); MONOCYTE # 0.6 10^3/ul (0.3-0.9); MONOCYTES % 9.5 % (0.0-11.0); NEUTROPHIL # 3.1 10^3/ul (1.6-7.5); NEUTROPHILS % 50.5 % (39.0-77.0); PLATELET COUNT 210 10^3/UL (140-440); RED BLOOD COUNT 3.86 10^6/ul (4.70-6.10); RED CELL DISTRIBUTION WIDTH 13.3 % (11.5-14.5); WHITE BLOOD COUNT 6.1 10^3/ul (4.8-10.8)
[2016-10-26] MEDS ORDERED: CITALOPRAM 20 MG TAB PO SCH (09:00)
[2016-10-26] MEDS ORDERED: ASPIRIN 81 MG TAB PO SCH (09:00)
[2016-10-26] MEDS ORDERED: LISINOPRIL 20 MG TAB PO SCH (09:00)
[2016-10-26 09:05] LABS: POTASSIUM 4.2 mmol/L (3.5-5.1)
[2016-10-26 09:08] LABS: CALCIUM 9.5 mg/dl (8.4-10.2); CREATININE 0.62 mg/dl (0.61-1.24)
[2016-10-26 09:09] LABS: MAGNESIUM 1.8 mg/dl (1.7-2.5)
[2016-10-26] MEDS: GEMFIBROZIL 600 MG TAB PO SCH (10:01)
[2016-10-26] MEDS: AMLODIPINE 5 MG TAB PO SCH (10:01)
[2016-10-26] MEDS: POLYETHYLENE GLYCOL 17 GM PACKET PO SCH (10:02)
--- NOTE | 2016-10-26 10:24 | PDOCDIS ---
Discharge Instructions CONDITION Patient Condition: Stable HOME CARE INSTRUCTIONS: Special Diet: cardiac ACTIVITY: Activity Restrictions: Special Exercises Activity Restrictions Comment: With marketing assistant manager only / Risk of fall YAMILETH GEORGE MD Oct 26, 2016 10:23
[2016-10-26] MEDS ORDERED: PANT40TA3 PO (10:26)
[2016-10-26] MEDS ORDERED: LANT3I SC (10:26)
--- NOTE | 2016-10-27 08:16 | DS ---
DATE OF ADMISSION: 10/25/2016 DATE OF DISCHARGE: 10/26/2016 CONSULTANTS: GI. PROCEDURES: None, although upper endoscopy EGD was recommended, and the patient has refused upper e ndoscopy. DISCHARGE DIAGNOSES: 1. Upper gastrointestinal bleed. This is likely secondary to patient placed on aspirin, Plavix, an d Lovenox. Lovenox and Plavix were placed on hold. Gastroenterology was consulted. The patient hsu s refused upper endoscopy. There is no evidence of GI bleed at this time. Hemoglobin and hematocri t have been stable. 2. Anemia secondary to hematemesis, stable. Hemoglobin and hematocrit have been stable. 3. Essential hypertension, well controlled. 4. Dyslipidemia. Continue statin. 5. Major depression. Continue Celexa 6. History of cerebrovascular accident with left-sided residual. The patient will continue aspirin and statin and continue to treat blood pressure. Restart Plavix in 7 days. 7. Diabetes mellitus on insulin sliding scale, Lantus, low carb diet. 8. Nausea on Zofran and Reglan. MEDICATIONS: 1. Amlodipine 10 mg p.o. daily. 2. Aspirin 81 mg daily. 3. Lipitor 80 mg p.o. q. p.m. 4. Coreg 12.5 mg p.o. b.i.d. 5. Celexa 20 mg p.o. daily. 6. Gemfibrozil 600 mg p.o. b.i.d. 7. Insulin sliding scale. 8. Lantus 28 units subQ q. p.m. 9. Lisinopril 40 mg p.o. daily. 10. MiraLax 17 grams p.o. daily p.r.n. 11. Protonix 40 mg p.o. b.i.d. x30 days and then daily. 12. Zofran 4 mg 1 tab p.o. q. 6 hours p.r.n. 13. Plavix 75 mg 1 tab p.o. q. a.m. to be started in 7 to 10 days; 11/04/2016 if there is no active bleeding. 14. Reglan 5 mg 1 tab p.o. q. 8 hours p.r.n. 15. Oxycodone 5 mg 1 tab p.o. q. 8 hours p.r.n. 16. Hydralazine 25 mg 1 tab p.o. q. 8 hours p.r.n. ALLERGIES: NO KNOWN DRUG ALLERGIES. LABORATORY DATA: Sodium 141, potassium 4.2, chloride 102, bicarbonate 27, BUN 14, creatinine 0.62, glucose 175, calcium 9.5, magnesium 1.8. WBC 6.1, hemoglobin 11.0, hematocrit 32.2, platelets 210. HOSPITAL COURSE: This is a 66-year-old gentleman with past medical history of CVA with left-sided r esidual, essential hypertension, diabetes mellitus type 2, depression, peripheral vascular disease who [facility] and has been obtaining physical therapy and was found to have hematemesis, vomiting blood, on 10/25/2016; therefore, he was transferred to the emergency room at [facility] where hemoglobin was found to be 10.9, hematocrit 33.8. Sodium 143, potassium 4.2. The patient was started on IV PPI. 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 There was no evidence of hematemesis during the course of hospitalization. Gastroenterology was consulted, and after evaluation by GI, it was recommended to proceed with upper endoscopy, altho ug the patient has refused upper endoscopy. The patient denies any chest pain, shortness of breath . Positive for nausea. No vomiting, no diarrhea, no abdominal pain. The patient was started on IV fluids, pain medication, IV PPI. Plavix and Lovenox was placed on hold. Regarding his hypertensio n, his blood glucoses has been well controlled on Coreg, lisinopril, and amlodipine. The patient wa s also placed on hydralazine p.r.n. for systolic blood pressure greater than 165. For nausea, the p atient was placed on Zofran. For dyslipidemia, the patient was continued on statin and Gemfibrozil. For diabetes mellitus, the patient was continued on Lantus and insulin sliding scale. The patient was found not to have any more nausea or vomiting or emesis; therefore, he was started on clear liq uid diet, and we advanced to full liquid diet which has been tolerating. This morning, the patient will be placed on regular low carb cardiac diet. The [facility]. The patient's hemoglobin and hematocrit have been stable since a dmission despite IV fluid. There is no evidence of any acute anemia on his CBC. CONDITION AT TIME OF DISCHARGE: Stable. Dictated By: YAMILETH FOX/NTS Conf#: [id number] DID#: [id number]
== END 2016-10-26 16:30 | DRG 378 ==
LOC: E/R 06:50 → TEL 10:20
PROVIDERS: ADMIT Family Medicine; ATTEND Family Medicine
DX: K92.2 Gastrointestinal hemorrhage, unspecified (principal); I69.354 Hemiplegia and hemiparesis following cerebral infarction affecting left non-dominant side; I10 Essential (primary) hypertension; D64.9 Anemia, unspecified; E11.9 Type 2 diabetes mellitus without complications; F32.9 Major depressive disorder, single episode, unspecified; K92.0 Hematemesis; E78.5 Hyperlipidemia, unspecified; Z79.82 Long term (current) use of aspirin
CPT/HCPCS: 36415; 71010; 80048; 80053; 82962; 83735; 84484; 85014; 85018; 85025; 85610; 85730; 86850; 86900; 86901; 93005; 96372; 96374; 96375; 96376; C9113; J0360; J1815; J2270; J7042